=== PATIENT | female | born 1960 | race Caucasian/White ===

== ENCOUNTER → 2020-07-21 14:22 | Outpatient (CLI) | payer OTHER, SELFPAY ==
[2020-07-23 10:12] LABS: Covid-19 Nasal PCR Sendout P&C Negative
== END ==
PROVIDERS: PCP Family Medicine; Visit Provider Nurse Practitioner Family
DX: Z20.822 Contact with and (suspected) exposure to COVID-19 (principal)
CPT/HCPCS: U0004

== ENCOUNTER 2023-01-06 02:27 | Emergency (ER) | payer OTHER, SELFPAY ==
[2023-01-06] VITALS (7 sets, daily range): BP systolic 150–206; BP diastolic 80–169; PULSE 88–120; RESP 16–22; TEMP 36.8–36.9; O2SAT 96–98; BMI 32.0; BMI 33.0
--- NOTE | 2023-01-06 02:55 | CT_ITS ---
PROCEDURE INFORMATION: Exam: CT Abdomen And Pelvis With Contrast Exam date and time: 01/06/2023 3:34 AM Age: 62 years old Clinical indication: Pain; Other: Vaginal; Additional info: Vaginal pain TECHNIQUE: Imaging protocol: Computed tomography of the abdomen and pelvis with contrast. Radiation optimization: All CT scans at this facility use at least one of these dose optimization techniques: automated exposure control; mA and/or kV adjustment per patient size (includes targeted exams where dose is matched to clinical indication); or iterative reconstruction. Contrast material: ISOVUE; Contrast volume: 75 ml; Contrast route: IV; REPORTING DATA: Count of CT and Cardiac NM exams in prior 12 months: This patient has received 0 known CTs and 0 known cardiac nuclear medicine studies in the 12 months prior to the current study. COMPARISON: No relevant prior studies available. FINDINGS: Lungs: Calcified granuloma within the left lower lobe. Liver: Normal. Gallbladder and bile ducts: Normal. Pancreas: Normal. Spleen: Normal. Adrenal glands: Normal. No mass. Kidneys and ureters: Nonobstructive bilateral nephrolithiasis. Stomach and bowel: Normal. Appendix: Appendix normal. Intraperitoneal space: Unremarkable. No free air. No significant fluid collection. Vasculature: Phleboliths within the pelvis. Lymph nodes: Unremarkable. No enlarged lymph nodes. Urinary bladder: Unremarkable as visualized. Reproductive: Uterus surgically absent. Bones/joints: No acute abnormality. Soft tissues: Dystrophic calcifications within the gluteal subcutaneous tissues bilaterally, possibly injection granulomas. IMPRESSION: No acute abdominal or pelvic abnormality.
--- NOTE | 2023-01-06 03:00 | HMH.EDUROGF ---
Discharge Plan Disposition Patient Disposition: Home, Self-Care Prescriptions Prescriptions: New cephalexin [cephalexin] 500 mg capsule 500 mg PO TID Qty: 21 0RF Referrals Follow up/Referrals: Jarvis Ingram MD [Primary Care Provider] - See instructions Dallin Fox MD [Staff Physician] - See instructions Clinical Impressions Clinical Impression: Urinary tract infection, Vaginal pain Instructions Patient Instructions: DI for Urinary Tract Infection (UTI), DI for Pelvic Pain Discharge ED Provider: Yvette (ED),Cedric Hunter Female Urogenital HPI General Chief complaint: Urogenital-Female Stated complaint: Vaginal Pain Time Seen by Provider: 01/06/23 03:00 Mode of Arrival: Wheelchair Source of Information: Patient and Medical Record Limitations: No Limitations Description of Symptoms (Recalled from ER Triage Doc. by RN): pt c\o severe pain in her vagina. then pt states pain 30/10 pressure like something is coming out of her. the pt reports a full hysterectomy and has had this pain for bout 2 months. no protrusions noted during nurse assessment History of Present Illness HPI Narrative: vagina pain worse over the last few days - has had hysterectomy- no bleeding - no skin lesions - no recent coitus Complaint: other (vaginal pain) Onset (ago): day(s) Location: suprapubic Severity: moderate : No Associated symptoms: denies other symptoms Related Data Previous Rx's Medication Instructions Recorded cephalexin 500 mg capsule 500 mg PO TID #21 caps 01/06/23 Allergies Allergy/AdvReac Type Severity Reaction Status Date / Time Aspirin Allergy Severe S-DIFF. Uncoded 06/20/17 14:02 BREATHING CELERY Allergy Severe STOMACH Uncoded 06/20/17 14:02 SWELLS NUTS (FOOD) Allergy Severe S-DIFF. Uncoded 06/20/17 14:02 BREATHING SULFA (sulfonamide) Allergy Severe S-SWELLS-OR Uncoded 06/20/17 14:02 AL/THROAT PFSH PFS Disclaimer: The information contained in this section may have been updated after the patient was seen, as this information can be updated by other users. Social History Smoking Status: Former smoker alcohol intake: never current occupational status: retired Travel in the last 8 weeks: None ROS Obtained: Yes All systems reviewed & no additional complaints except as documented Physical Exam General General appearance: alert Head Head exam: normocephalic Eye Eye exam: Present PERRL and EOMI ENT ENT exam: Present mucous membranes moist Neck Neck exam: Present trachea midline Respiratory Respiratory exam: Present normal lung sounds bilaterally; Absent respiratory distress Cardiovascular Cardiovascular exam: Present regular rate Abdominal Exam Abdominal exam: Present soft; Absent tenderness, guarding or rebound External exam: Present normal external exam Extremities Exam Extremities exam: Present full ROM Neurological Exam Neurological exam: Present alert, oriented X3 and CN II-XII intact; Absent motor sensory deficit Psychiatric Psychiatric exam: Present normal affect Skin Skin exam: Absent rash Medical Decision Making Medical Records Medical records reviewed: Yes I reviewed the patient's medical records. [place] Inquiry Pt receiving controlled substance: No Vital Signs: 01/06/23 02:29 01/06/23 02:56 01/06/23 03:00 Temperature 98.4 F Temperature Source Oral Pulse Rate 101 H 100 H Pulse Rate [Left] 120 H Respiratory Rate 22 18 20 Blood Pressure 181/93 H 150/98 H Blood Pressure [Left Arm] 180/98 H Blood Pressure [Right Arm] 206/169 H Blood Pressure Mean 123 131 Blood Pressure Mean [Left Arm] 125 Blood Pressure Mean [Right Arm] 181 Blood Pressure Source Blood Pressure Source [Left Arm] Manual Cuff/ Auscultation Blood Pressure Source [Right Arm] Automatic Cuff Blood Pressure Position 02 Sat by Pulse Oximetry 97 97 98 Oxygen Delivery Method Room Air 01/06/23 05:08 Temperature Temperature Source Puls
[2023-01-06 03:05] LABS: Basophils # 0.1 K/mm3 (0-0.2); Basophils % 0.8 % (0.1-2.0); Chloride 101 mmol/L (98-107); Eosinophils # 0.1 K/mm3 (0.0-0.4); Eosinophils % 0.9 % (0.1-12.0); Hematocrit 45.9 % (37.0-47.0); Hemoglobin 14.9 g/dL (12.2-16.2); Lymphocytes # 3.3 K/mm3 (0.7-4.5); Lymphocytes % 39.8 % (10-50); Mean Corpuscular HGB Conc 32.4 g/dL (31.8-35.4); Mean Corpuscular Hemoglobin 27.4 pg (27.0-31.2); Mean Corpuscular Volume 84.5 fl (81-99); Mean Platelet Volume 7.2 fl (7.4-10.4); Monocytes # 0.7 K/mm3 (0.1-1.0); Monocytes % 7.9 % (1.7-9.3); Neutrophils # 4.2 K/mm3 (1.8-7.8); Neutrophils % 50.6 % (37.0-80.0); Platelet Count 278 K/mm3 (142-424); Red Blood Count 5.43 M/mm3 (4.20-5.40); Red Cell Distribution Width 13.3 % (11.5-17.5); White Blood Count 8.4 K/mm3 (4.8-10.8)
[2023-01-06 03:06] LABS: Potassium 3.8 mmoL/L (3.5-5.1); Sodium 134 mmol/L (136-145)
[2023-01-06 03:08] LABS: Alanine Aminotransferase 32 U/L (12-78); Albumin Level 4.6 g/dl (3.5-5.0); Albumin/Globulin Ratio 1.2 (1.1-1.8); Alkaline Phosphatase 116 U/L (38-126); Anion Gap 12.8 mEq/L (5-15); Aspartate Amino Transferase 31 U/L (14-36); Bilirubin,Total 0.4 mg/dl (0.2-1.3); Blood Urea Nitrogen 17 mg/dl (7-17); Carbon Dioxide 24 mmol/L (22.0-30.0); Creatinine Clearance Estimated 71 mL/min (50-200); Estimated Glomerular Filt Rate 102 ml/min (>60); GFR (African American) 123 ML/MIN (>60); Globulin 3.7 g/dL (1.3-3.2); Glucose 152 mg/dl (74-100); Lipase 120 U/L (23-300); Total Protein,Serum 8.3 g/dl (6.3-8.2)
[2023-01-06 03:14] LABS: C-Reactive Protein 2.1 mg/L (0-4)
[2023-01-06 03:19] LABS: Microscopic, Urine URINE MICROSCOPIC (MICROSCOPIC)
[2023-01-06 03:29] LABS: Appearance,Urine CLEAR (Clear); Bilirubin,Urine Negative (Negative); Blood, Urine 1+ (Negative); Color,Urine YELLOW (Yellow); Glucose,Urine (UA) Negative (Negative); Ketones,Urine Negative (Negative); Leukocyte Esterase,Urine 2+ (Negative); Nitrate,Urine POSITIVE (Negative); Protein,Urine TRACE (Negative); Urobilinogen,Urine 0.2 EU/dl (0.2)
[2023-01-06 03:44] LABS: Bacteria,Urine 3+ /lpf
[2023-01-06 03:47] LABS: Erythrocyte Sedimentation Rate 17 mm/hr (0-30)
== END 2023-01-06 05:52 | disposition home or self-care (01) ==
PROVIDERS: Emergency Provider Emergency Medicine; PCP Family Medicine
DX: N39.0 Urinary tract infection, site not specified (principal); Z87.891 Personal history of nicotine dependence; R10.2 Pelvic and perineal pain
CPT/HCPCS: 74177; 80053; 81001; 83690; 84145; 85025; 85651; 86140; 87086; 87088; 87186; 96361; 96374; 96375; 99284; 99285; J0696; J2405; Q9967

== ENCOUNTER 2023-02-02 07:46 | Emergency (ER) | payer OTHER, SELFPAY ==
[2023-02-02 08:00] VITALS: BP 171/140; PULSE 114; RESP 18; TEMP 36.8; O2SAT 97; BMI 32.0
[2023-02-02 08:10] LABS: Appearance,Urine TURBID (Clear); Blood, Urine 3+ (Negative); Color,Urine YELLOW (Yellow); Glucose,Urine (UA) Negative (Negative); Ketones,Urine Negative (Negative); Leukocyte Esterase,Urine 3+ (Negative); Microscopic, Urine URINE MICROSCOPIC (MICROSCOPIC); Nitrate,Urine POSITIVE (Negative); Protein,Urine 2+ (Negative); Specific Gravity, Urine >= 1.030 (1.005-1.030)
--- NOTE | 2023-02-02 08:11 | CT_ITS ---
FINAL REPORT TECHNIQUE: Postcontrast axial images through the abdomen and pelvis were performed. This study was performed with techniques to keep radiation doses as low as reasonably achievable, (ALARA). Individualized dose reduction techniques using automated exposure control or adjustment of mA and/or kV according to the patient's size were employed. CLINICAL HISTORY: RL Qpain then NB/NB vomiting COMPARISON: 01/06/2023 FINDINGS: Abdomen: The lung bases are clear. The liver is normal in size and attenuation. The spleen is unremarkable. The adrenals are normal. The pancreas is unremarkable. There are several less than 3 mm bilateral renal stones. The aorta is normal in caliber. No free fluid or adenopathy is identified. There is mild right hydronephrosis and hydroureter secondary to a 2 mm right UVJ stone. Pelvis: The appendix is normal. Patient is status post hysterectomy. There is bladder wall thickening with adjacent stranding consistent with inflammation. There are bilateral gluteal calcifications which are stable, likely fat necrosis. No free fluid, free air, abscess or adenopathy is identified. IMPRESSION: No acute right hydronephrosis and hydroureter secondary to an obstructing UVJ stone. Bilateral nephrolithiasis. Reviewed, Interpreted and Dictated by Rad Aguillon III, MD Transcribed by Maame Huang Authenticated and [facility]
[2023-02-02 08:15] LABS: Bilirubin,Urine 1+ (Negative)
[2023-02-02 08:21] LABS: WBC,Urine TNTC #/hpf (0-3)
[2023-02-02 08:22] LABS: Bacteria,Urine 1+ /lpf; RBC,Urine 50-100 #/hpf (0-3)
--- NOTE | 2023-02-02 08:24 | HMH.EDGENADL ---
Discharge Plan Disposition Patient Disposition: Home, Self-Care Prescriptions Prescriptions: New cefdinir 300 mg capsule 300 mg PO BID 14 Days Qty: 28 0RF ondansetron HCl 4 mg tablet 4 mg PO Q6H PRN (Reason: nausea and vomiting) Qty: 10 0RF Saccharomyces boulardii [Florastor] 250 mg capsule 250 mg PO DAILY Qty: 30 0RF No Action clopidogrel 75 mg tablet 75 mg PO DAILY isosorbide mononitrate 30 mg tablet extended release 24 hr 30 mg PO DAILY losartan-hydrochlorothiazide 100-12.5 mg tablet 1 tab PO DAILY Patient Comments: TAKE 1 TABLET BY MOUTH ONCE DAILY levothyroxine 75 mcg tablet 75 mcg PO DAILY atorvastatin 40 mg tablet 40 mg PO DAILY oxcarbazepine 300 mg tablet 300 mg PO BID Patient Comments: TAKE 1 TABLET BY MOUTH TWICE DAILY Atrovent HFA 17 mcg/actuation HFA aerosol inhaler 2 inh inhalation Q4H PRN fluticasone furoate-vilanterol [Breo Ellipta] 200-25 mcg/dose blister with device 1 inh inhalation DAILY Januvia 50 mg tablet 50 mg PO DAILY ascorbic acid (vitamin C) [Vitamin C With Freya Hips] 500 mg tablet 500 mg PO TID methenamine hippurate 1 gram tablet 1 g PO ONCE prasterone (dhea) 6.5 mg insert 1 insert vaginal HS Referrals Follow up/Referrals: Jarvis Ingram MD [Primary Care Provider] - See instructions Activity Restrictions/Add. Instructions Additional Instructions/Restrictions: Follow-up with your primary care doctor regarding this visit to the emergency department. Be sure to call urology to see if you can get a prompt follow-up scheduled as well. Take cefdinir twice daily for 14 days. If you have any other concerning signs or symptoms, or worsening of your current condition, return to the ER promptly for further evaluation. Clinical Impressions Clinical Impression: Nephrolithiasis Urinary tract infection Qualifiers: Urinary tract infection type: site unspecified Hematuria presence: with hematuria Qualified Code(s): N39.0 - Urinary tract infection, site not specified Instructions Patient Instructions: DI for Acute Abdominal Pain Discharge ED Provider: Sekou William General Adult HPI General Chief complaint: Abdominal Pain Stated complaint: abdominal pain, vomiting, Time Seen by Provider: 02/02/23 07:49 Mode of Arrival: Ambulatory Source of Information: Patient Limitations: No Limitations Description of Symptoms (Recalled from ER Triage Doc. by RN): Presents via POV d/t right flank/RLQ abd pain radiating to right back that started approx. 03:00 am with associated n/v (due to pain). +discolored urine (brown) x 2. Denies Hx of GI or renal stones. +recurrent UTI's, followed by Urologist. History of Present Illness HPI narrative: This is a 62-year-old female with history of previous hysterectomy (abdominal), hypertension, hyperlipidemia, COPD, chronic UTIs (currently following with urology as outpatient facility) presenting with right lower quadrant pain. Patient states that pain woke her up from sleep at 3 AM on 02/02. Never had anything like this in the past. Pain is 10 out of 10 when it flares up, radiates to her right flank. 8 out of 10 currently. Stabbing, throbbing. Tylenol and Motrin do not help. No overlying skin changes. Patient states for the past couple of weeks, she has also had small-volume, loose, brown stools, which is different from normal. Still passing gas. Last bowel movement was 1 day prior to arrival. Denies dysuria, hematuria, fevers or chills, but has been intermittently vomiting for the past couple of hours. Nonbloody, nonbilious vomit. Related Data Home Medications Medication Instructions Recorded Confirmed atorvastatin 40 mg tablet 40 mg PO DAILY 01/09/23 02/01/23 clopidogrel 75 mg tablet 75 mg PO DAILY 01/09/23 02/01/23 fluticasone furoate 200 1 inh inhalation DAILY 01/09/23 02/01/23 mcg-vilanterol 25 mcg/dose inhalation powder (Breo Ellipta) ipratropium
--- NOTE | 2023-02-02 08:29 | PC.NURSE ---
Called lab regarding blood cultures/lactic draw.
[2023-02-02 08:30] VITALS: BP 179/107; PULSE 100; O2SAT 95
[2023-02-02 08:30] LABS: Chloride 100 mmol/L (98-107); Potassium 3.7 mmoL/L (3.5-5.1); Sodium 134 mmol/L (136-145)
--- NOTE | 2023-02-02 08:30 | PC.NURSE ---
Patient updated on plan of care.
[2023-02-02 08:31] LABS: Basophils # 0.1 K/mm3 (0-0.2); Basophils % 0.6 % (0.1-2.0); Eosinophils # 0.1 K/mm3 (0.0-0.4); Eosinophils % 0.5 % (0.1-12.0); Hematocrit 44.6 % (37.0-47.0); Hemoglobin 14.4 g/dL (12.2-16.2); Lymphocytes # 2.1 K/mm3 (0.7-4.5); Lymphocytes % 15.7 % (10-50); Mean Corpuscular HGB Conc 32.2 g/dL (31.8-35.4); Mean Corpuscular Hemoglobin 27.7 pg (27.0-31.2); Mean Corpuscular Volume 85.9 fl (81-99); Mean Platelet Volume 7.4 fl (7.4-10.4); Monocytes # 0.8 K/mm3 (0.1-1.0); Neutrophils # 10.5 K/mm3 (1.8-7.8); Neutrophils % 77.2 % (37.0-80.0); Platelet Count 297 K/mm3 (142-424); Red Blood Count 5.19 M/mm3 (4.20-5.40); Red Cell Distribution Width 13.3 % (11.5-17.5); White Blood Count 13.6 K/mm3 (4.8-10.8)
[2023-02-02 08:32] LABS: Blood Urea Nitrogen 22 mg/dl (7-17); Creatinine Clearance Estimated 69 mL/min (50-200); Estimated Glomerular Filt Rate 85 ml/min (>60); GFR (African American) 103 ML/MIN (>60)
[2023-02-02 08:33] LABS: Alanine Aminotransferase 28 U/L (12-78); Albumin Level 4.4 g/dl (3.5-5.0); Albumin/Globulin Ratio 1.2 (1.1-1.8); Alkaline Phosphatase 112 U/L (38-126); Anion Gap 14.7 mEq/L (5-15); Aspartate Amino Transferase 30 U/L (14-36); Bilirubin,Total 0.3 mg/dl (0.2-1.3); Carbon Dioxide 23 mmol/L (22.0-30.0); Globulin 3.8 g/dL (1.3-3.2); Total Protein,Serum 8.2 g/dl (6.3-8.2)
[2023-02-02 08:34] LABS: Calcium 9.6 mg/dl (8.4-10.2); Glucose 148 mg/dl (74-100)
[2023-02-02 08:38] LABS: Activated Partial Thrombo Time 26.7 seconds (22.8-30.6)
[2023-02-02 08:42] LABS: C-Reactive Protein 9.8 mg/L (0-4)
--- NOTE | 2023-02-02 08:43 | PC.NURSE ---
notified of worsening pain despite meds.
--- NOTE | 2023-02-02 08:57 | PC.NURSE ---
From CT, lab notified.
--- NOTE | 2023-02-02 09:01 | PC.NURSE ---
Lab at bedside. Improved pain post dilaudid.
[2023-02-02 09:18] LABS: Erythrocyte Sedimentation Rate 23 mm/hr (0-30)
--- NOTE | 2023-02-02 09:27 | PC.NURSE ---
MD at bedside discussing results and disposition.
[2023-02-02 09:30] LABS: Lactic Acid 1.1 mmol/L (0.7-2.1)
[2023-02-02 09:36] VITALS: BP 167/93; PULSE 98; O2SAT 95
[2023-02-02 09:38] VITALS: BP 167/93; PULSE 100; RESP 18; O2SAT 96
--- NOTE | 2023-02-02 09:39 | PC.NURSE ---
Oral fluids provided; okay by . Pt updated on plan of care; awaiting final results of CT.
--- NOTE | 2023-02-02 09:59 | PC.NURSE ---
contacted rad to check on status of CT result, states preliminary result available and will send down. updated Dr. William
[2023-02-02 10:00] VITALS: BP 172/87; PULSE 87; O2SAT 95
--- NOTE | 2023-02-02 10:23 | PC.NURSE ---
rounded on pt, primary nurse in room rounding on pt as well.
--- NOTE | 2023-02-02 10:23 | PC.NURSE ---
Pt updated on plan of care. Awaiting final rad read. 10/10 pain. Pt tolerating PO fluids.
[2023-02-02 10:45] VITALS: BP 174/112; PULSE 91; RESP 18; TEMP 36.7; O2SAT 98
== END 2023-02-02 10:47 | disposition home or self-care (01) ==
PROVIDERS: Emergency Provider Emergency Medicine; PCP Family Medicine
DX: N39.0 Urinary tract infection, site not specified (principal); N20.0 Calculus of kidney; R10.31 Right lower quadrant pain; Z86.73 Personal history of transient ischemic attack (TIA), and cerebral infarction without residual deficits; I10 Essential (primary) hypertension; E78.5 Hyperlipidemia, unspecified; J44.9 Chronic obstructive pulmonary disease, unspecified
CPT/HCPCS: 36415; 74177; 80053; 81001; 83605; 85025; 85651; 85730; 86140; 87040; 87086; 87088; 87186; 96361; 96374; 96375; 99285; J0131; J0696; J2405; Q9967

== ENCOUNTER 2023-10-31 05:34 | Emergency (ER) | payer OTHER, SELFPAY ==
[2023-10-31] VITALS (8 sets, daily range): BP systolic 139–215; BP diastolic 72–115; PULSE 84–123; RESP 18–22; TEMP 36.6–36.7; O2SAT 89–99; BMI 31.2
--- NOTE | 2023-10-31 05:41 | CT_ITS ---
PROCEDURE INFORMATION: Exam: CT Abdomen And Pelvis Without Contrast Exam date and time: 10/31/2023 6:00 AM Age: 63 years old Clinical indication: Abdominal pain; Additional info: Right abd pain, HX stones TECHNIQUE: Imaging protocol: Computed tomography of the abdomen and pelvis without contrast. Radiation optimization: All CT scans at this facility use at least one of these dose optimization techniques: automated exposure control; mA and/or kV adjustment per patient size (includes targeted exams where dose is matched to clinical indication); or iterative reconstruction. COMPARISON: CT ABDOMEN PELVIS W CON 02/02/2023 8:53 AM FINDINGS: Heart: Trace pericardial fluid. Liver: No acute findings. No mass. Gallbladder and bile ducts: No acute findings, calcified stones or ductal dilation. Pancreas: No acute findings, focal abnormality or ductal dilation. Spleen: No splenomegaly or focal abnormality. Adrenal glands: Normal. No mass. Kidneys and ureters: Small nonobstructing intrarenal calculus. No obstructive uropathy. Stomach and bowel: No obstruction. No mucosal thickening. Appendix: No evidence of appendicitis. Intraperitoneal space: No free air. No significant fluid collection. Vasculature: No abdominal aortic aneurysm. Lymph nodes: No pathologically enlarged lymph nodes. Urinary bladder: Unremarkable as visualized. Reproductive: Patient is status post hysterectomy. Bones/joints: No acute fracture. Soft tissues: No acute findings. Injection granulomata bilaterally in the lower flanks IMPRESSION: 1. No acute findings in the abdomen or pelvis. 2. Trace pericardial fluid.
[2023-10-31] MEDS: ACETAMINOPHEN 1,000MG/100ML VIAL 1000 MG IV (05:46)
[2023-10-31] MEDS: 0.9 % SODIUM CHLORIDE 1000ML 1,000 ML 999 ML IV (05:46)
[2023-10-31] MEDS: MORPHINE 4MG/ML SYRINGE 4 MG IV (05:47)
[2023-10-31] MEDS: ONDANSETRON 4MG/2ML VIAL 4 MG IV (05:47)
[2023-10-31] MEDS: KETOROLAC 30MG/ML VIAL 30 MG IV (05:47)
[2023-10-31 05:58] LABS: Basophils # 0.1 K/mm3 (0-0.2); Basophils % 0.7 % (0.1-2.0); Eosinophils # 0.1 K/mm3 (0.0-0.4); Eosinophils % 0.9 % (0.1-12.0); Hematocrit 45.2 % (37.0-47.0); Hemoglobin 15.5 g/dL (12.2-16.2); Lymphocytes # 2.3 K/mm3 (0.7-4.5); Lymphocytes % 27.3 % (10-50); Mean Corpuscular HGB Conc 34.2 g/dL (31.8-35.4); Mean Corpuscular Hemoglobin 29.7 pg (27.0-31.2); Mean Corpuscular Volume 86.8 fl (81-99); Mean Platelet Volume 7.3 fl (7.4-10.4); Monocytes # 0.3 K/mm3 (0.1-1.0); Monocytes % 3.6 % (1.7-9.3); Neutrophils # 5.8 K/mm3 (1.8-7.8); Neutrophils % 67.5 % (37.0-80.0); Platelet Count 279 K/mm3 (142-424); Red Blood Count 5.21 M/mm3 (4.20-5.40); Red Cell Distribution Width 13.6 % (11.5-17.5); White Blood Count 8.5 K/mm3 (4.8-10.8)
[2023-10-31 06:05] LABS: Chloride 98 mmol/L (98-107); Potassium 4.2 mmoL/L (3.5-5.1); Sodium 126 mmol/L (136-145)
[2023-10-31 06:09] LABS: Alanine Aminotransferase 42 U/L (12-78); Albumin Level 4.4 g/dl (3.5-5.0); Albumin/Globulin Ratio 1.4 (1.1-1.8); Alkaline Phosphatase 77 U/L (38-126); Anion Gap 14.2 mEq/L (5-15); Aspartate Amino Transferase 39 U/L (14-36); Bilirubin,Total 0.5 mg/dl (0.2-1.3); Blood Urea Nitrogen 11 mg/dl (7-17); Calcium 9.7 mg/dl (8.4-10.2); Carbon Dioxide 18 mmol/L (22.0-30.0); Creatinine Clearance Estimated 67 mL/min (50-200); Estimated Glomerular Filt Rate 101 ml/min (>60); GFR (African American) 123 ML/MIN (>60); Globulin 3.2 g/dL (1.3-3.2); Glucose 135 mg/dl (74-100); Total Protein,Serum 7.6 g/dl (6.3-8.2)
[2023-10-31] MEDS: PROMETHAZINE HCL 25MG/ML 1ML VIAL 25 MG IV (06:11)
[2023-10-31] MEDS: SODIUM CHLORIDE 0.9% 25ML BAG 25 ML IV (06:11)
--- NOTE | 2023-10-31 06:22 | CT_ITS ---
PROCEDURE INFORMATION: Exam: CTA Abdomen and Pelvis With Contrast Exam date and time: 10/31/2023 6:38 AM Age: 63 years old Clinical indication: Abdominal pain; Generalized; Additional info: Severe abd pain TECHNIQUE: Imaging protocol: Computed tomographic angiography of the abdomen and pelvis with contrast. Exam focused on the arteries. 3D rendering (Not supervised by radiologist): MIP and/or 3D reconstructed images were created by the technologist. Radiation optimization: All CT scans at this facility use at least one of these dose optimization techniques: automated exposure control; mA and/or kV adjustment per patient size (includes targeted exams where dose is matched to clinical indication); or iterative reconstruction. Contrast material: ISOVUE 370; Contrast volume: 100 ml; Contrast route: INTRAVENOUS (IV); COMPARISON: CT ABDOMEN PELVIS WO CON 10/31/2023 6:00 AM FINDINGS: Aorta: No aortic aneurysm. No aortic dissection. Celiac trunk and mesenteric arteries: No occlusion or significant stenosis. Renal arteries: No occlusion or significant stenosis. Right iliac arteries: No occlusion or significant stenosis. Left iliac arteries: Atherosclerotic narrowing of the left common iliac artery which is nevertheless patent. Narrowed but patent origin of the left internal iliac artery. Liver: No mass. Gallbladder and bile ducts: No calcified stones. No ductal dilation. Pancreas: No mass. No ductal dilation. Spleen: No splenomegaly. Adrenal glands: No mass. Kidneys and ureters: No solid mass. No hydronephrosis. Stomach and bowel: No obstruction. No mucosal thickening. Appendix: No evidence of appendicitis. Intraperitoneal space: No free air. No significant fluid collection. Lymph nodes: No enlarged lymph nodes. Urinary bladder: No mass. Reproductive: Patient is status post hysterectomy. Bones/joints: No acute fracture. Soft tissues: No acute findings. IMPRESSION: 1. No acute findings. 2. Narrowed but patent left common and internal iliac arteries.
--- NOTE | 2023-10-31 06:23 | CT_ITS ---
PROCEDURE INFORMATION: Exam: CTA Chest With Contrast CTA Abdomen and Pelvis With Contrast Exam date and time: 10/31/2023 6:38 AM Age: 63 years old Clinical indication: Angina pectoris; Patient HX: Severe pain, hypertension; Additional info: Severe pain, HTN TECHNIQUE: Imaging protocol: Computed tomographic angiography of the chest with contrast. Exam focused on the arteries. Computed tomographic angiography of the abdomen and pelvis with contrast. Exam focused on the arteries. 3D rendering (Not supervised by radiologist): MIP and/or 3D reconstructed images were created by the technologist. Radiation optimization: All CT scans at this facility use at least one of these dose optimization techniques: automated exposure control; mA and/or kV adjustment per patient size (includes targeted exams where dose is matched to clinical indication); or iterative reconstruction. Contrast material: ISOVUE 370; Contrast volume: 100 ml; Contrast route: INTRAVENOUS (IV); COMPARISON: CT ANGIO ABDOMEN PELVIS 10/31/2023 6:38 AM FINDINGS: VASCULATURE: Pulmonary arteries: Normal. No pulmonary emboli. Aorta: There is scattered calcific atheromatous plaque noted mainly in the inferior segment of the abdominal aorta. Celiac trunk and mesenteric arteries: No occlusion or significant stenosis. Renal arteries: No occlusion or significant stenosis. Right iliac arteries: No occlusion or significant stenosis. Left iliac arteries: No occlusion or significant stenosis. Veins: Incidental note is made of a retroaortic left renal vein. CHEST: Lungs: There is a 6 mm calcified granuloma noted in the left lower lobe just above the diaphragm. Scattered subsegmental atelectasis is noted in the lungs with minimal gravity dependent change in the lower lobes. Pleural spaces: Unremarkable. No pneumothorax. No pleural effusion. Heart: Unremarkable. No cardiomegaly. No pericardial effusion. Coronary arteries: There is coronary artery calcification. ABDOMEN AND PELVIS: Liver: Subcapsular granuloma is noted in the medial right hepatic dome along the inferior vena cava. Gallbladder and bile ducts: The gallbladder is moderately distended. Pancreas: Unremarkable. No mass. No ductal dilation. Spleen: Unremarkable. No splenomegaly. Adrenal glands: Unremarkable. No mass. Kidneys and ureters: The kidneys enhance symmetrically and there is no hydronephrosis. Stomach and bowel: There is no evidence of small bowel obstruction. Scattered colonic diverticula are noted. Appendix: The patient appears to be post appendectomy. Intraperitoneal space: Unremarkable. No free air. No significant fluid collection. Urinary bladder: Unremarkable. No mass. Reproductive: Gynecologic structures are not identified, likely surgically absent. Lymph nodes: Calcified mediastinal lymphadenopathy is noted. Bones/joints: Unremarkable. No acute fracture. Soft tissues: Unremarkable. IMPRESSION: No evidence for aortic dissection or aneurysm. No evidence for pulmonary embolism. 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 Colonic diverticulosis.
[2023-10-31] MEDS: HYDROMORPHONE 2MG/ML SYRINGE 0.5 MG IV (06:26)
--- NOTE | 2023-10-31 06:26 | HMH.EDGENADL ---
Discharge Plan Disposition Patient Disposition: Home, Self-Care Condition: Good Prescriptions Prescriptions: New ciprofloxacin HCl 500 mg tablet 500 mg PO BID Qty: 20 0RF ondansetron HCl 4 mg tablet 4 mg PO Q8H PRN (Reason: nausea and vomiting) 4 Days Qty: 12 0RF phenazopyridine [Pyridium] 200 mg tablet 200 mg PO Q8H PRN (Reason: pain) Qty: 10 0RF No Action clopidogrel 75 mg tablet 75 mg PO DAILY losartan-hydrochlorothiazide 100-12.5 mg tablet 1 tab PO DAILY Patient Comments: TAKE 1 TABLET BY MOUTH ONCE DAILY levothyroxine 75 mcg tablet 75 mcg PO DAILY atorvastatin 40 mg tablet 40 mg PO DAILY oxcarbazepine 300 mg tablet 300 mg PO BID Patient Comments: TAKE 1 TABLET BY MOUTH TWICE DAILY Atrovent HFA 17 mcg/actuation HFA aerosol inhaler 2 inh inhalation Q4H PRN fluticasone furoate-vilanterol [Breo Ellipta] 200-25 mcg/dose blister with device 1 inh inhalation DAILY Januvia 50 mg tablet 50 mg PO DAILY ascorbic acid (vitamin C) [Vitamin C With Freya Hips] 500 mg tablet 500 mg PO TID methenamine hippurate 1 gram tablet 1 g PO ONCE prasterone (dhea) 6.5 mg insert 1 insert vaginal HS isosorbide mononitrate 30 mg tablet extended release 24 hr 30 mg PO DAILY 90 Days Qty: 90 1RF cefdinir 300 mg capsule 300 mg PO BID 14 Days Qty: 28 0RF ondansetron HCl 4 mg tablet 4 mg PO Q6H PRN (Reason: nausea and vomiting) Qty: 10 0RF Saccharomyces boulardii [Florastor] 250 mg capsule 250 mg PO DAILY Qty: 30 0RF Referrals Follow up/Referrals: Provider,Referral, MD [Primary Care Provider] - See instructions Activity Restrictions/Add. Instructions Additional Instructions/Restrictions: You were evaluated in the emergency department today. Please fruit or nut picker your prescription at the pharmacy and take as prescribed. Follow-up closely with your primary care provider. Your urine culture is pending at this time. Return to the emergency department for new or worsening symptoms. Take Tylenol at home as needed for pain. Clinical Impressions Clinical Impression: Recurrent urinary tract infection Instructions Patient Instructions: DI for Urinary Tract Infection (UTI), DI for Acute Abdominal Pain Discharge ED Provider: Inez Lee General Adult HPI <Esequiel Calloway MD - Last Filed: 10/31/23 06:55> General Chief complaint: Abdominal Pain Stated complaint: abd pain Time Seen by Provider: 10/31/23 05:35 Mode of Arrival: Wheelchair Source of Information: Patient Limitations: Physical Limitations Description of Symptoms (Recalled from ER Triage Doc. by RN): ED was called by repair order clerk stating pt was laying on ED lobby floor. This RN and Elsa Villeda assisted pt off of floor into a wheelchair and wheeled pt to a room. Pt C/O severe RLQ abd pain starting around 2200 last night, and worsening t/o the night. Pt also reports N/V. Pt states she has hx of kidney stones and infections. History of Present Illness HPI narrative: 63-year-old female with history including chronic urinary tract infections, chronic kidney stones diabetes hypothyroidism, presents with severe abdominal pain. She reports abdominal pain started last night, has been worsening. She reports associated nausea and vomiting. She reports it feels like it could be a kidney stone. Pain is suprapubic, right lower quadrant and radiating into the bilateral CVA. She denies any fever at home. She reports she never had to have an intervention for her stones, they have all passed spontaneously. She reports she sees a urologist in [place]. Denies any lower extremity pain or weakness or numbness. Related Data Home Medications Medication Instructions Recorded Confirmed atorvastatin 40 mg tablet 40 mg PO DAILY 01/09/23 02/01/23 clopidogrel 75 mg tablet 75 mg PO DAILY 01/09/23 02/01/23 fluticasone furoate 200 1 inh inhalation DAILY 01/09/23 02/01/23 mcg-vilanterol 25 mcg/dose inhalation powder (Breo Ellipta) ipratropium bromide 17 2 inh inhalation Q4H PRN 01/09/23 02/01/23 mcg/actuation HFA aerosol inhaler (Atrovent HFA) levothyroxine 75 mcg tablet 75 mcg PO DAILY 01/09/23 02/01/23 losartan 100 1 tab PO DAILY 01/09/23 02/01/23 mg-hydrochlorothiazide 12.5 mg tablet oxcarbazepine 300 mg tablet 300 mg PO BID 01/09/23 02/01/23 sitagliptin phosphate 50 mg tablet 50 mg PO DAILY 01/09/23 02/01/23 (Januvia) ascorbic acid (vitamin C) 500 mg 500 mg PO TID 02/01/23 02/01/23 tablet (Vitamin C With Freya Hips) methenamine hippurate 1 gram tablet 1 g PO ONCE 02/01/23 02/01/23 prasterone (dhea) 6.5 mg vaginal 1 insert vaginal HS 02/01/23 02/01/23 insert Previous Rx's Medication Instructions Recorded Saccharomyces boulardii 250 mg 250 mg PO DAILY #30 caps 02/02/23 capsule (Florastor) cefdinir 300 mg capsule 300 mg PO BID 14 days #28 caps 02/02/23 ondansetron HCl 4 mg tablet 4 mg PO Q6H PRN nausea and 02/02/23 vomiting #10 tabs isosorbide mononitrate 30 mg 30 mg PO DAILY 90 days #90 tabs 04/10/23 tablet,extended release 24 hr ciprofloxacin HCl 500 mg tablet 500 mg PO BID #20 tabs 10/31/23 ondansetron HCl 4 mg tablet 4 mg PO Q8H PRN nausea and 10/31/23 vomiting 4 days #12 tabs phenazopyridine 200 mg tablet 200 mg PO Q8H PRN pain 6 doses #10 10/31/23 (Pyridium) tabs Allergies Allergy/AdvReac Type Severity Reaction Status Date / Time budesonide [From Symbicort] Allergy Other Verified 02/02/23 08:04 formoterol [From Symbicort] Allergy Other Verified 02/02/23 08:04 Aspirin Allergy Severe S-DIFF. Uncoded 02/01/23 14:27 BREATHING CELERY Allergy Severe STOMACH Uncoded 02/01/23 14:27 SWELLS NUTS (FOOD) Allergy Severe S-DIFF. Uncoded 02/01/23 14:27 BREATHING SULFA (sulfonamide) Allergy Severe S-SWELLS-OR Uncoded 02/01/23 14:27 AL/THROAT metformin Allergy Mild chest pains Uncoded 02/01/23 14:27 PFSH <Esequiel Calloway MD - Last Filed: 10/31/23 06:55> FOR[facility]LY [facility] Disclaimer: The information contained in this section may have been updated after the patient was seen, as this information can be updated by other users. Medical History Stroke Surgical History H/O: hysterectomy has right ovary Family History Other Alcoholism Asthma Diabetes Hyperlipidemia Hypertension Stroke Thyroid disorder Social History Smoking Status: Never smoker alcohol intake: never current occupational status: retired Travel in the last 8 weeks: None <Esequiel Calloway MD - Last Filed: 10/31/23 06:55> ROS Obtained: Yes All systems reviewed & no additional complaints except as documented Physical Exam <Esequiel Calloway MD - Last Filed: 10/31/23 06:55> General General appearance: alert and in distress Comment: Pale appearing, intermittently vomiting Head Head exam: atraumatic and normocephalic Eye Eye exam: Present normal appearance, PERRL and EOMI ENT ENT exam: Present normal oropharynx and normal external ear exam Neck Neck exam: Present normal inspection and full ROM Chest Chest inspection: Present normal inspection and symmetric chest wall rise; Absent tenderness Respiratory Respiratory exam: Present normal lung sounds bilaterally; Absent respiratory distress Cardiovascular Cardiovascular exam: Present normal rhythm and tachycardia Abdominal Exam Abdominal exam: Present soft and tenderness (suprapubic,RLQ); Absent distention or guarding Extremities Exam Extremities exam: Present normal inspection; Absent edema or joint swelling Back Exam Back exam: Present normal inspection; Absent tenderness Neurological Exam Neurological exam: Present alert and oriented X3; Absent motor sensory deficit Psychiatric Psychiatric exam: Present normal affect and normal mood Skin Skin exam: Present warm, dry and normal color Lymphatic Lymphatic Findings: no adenopathy Medical Decision Making <Esequiel Calloway MD - Last Filed: 10/31/23 06:55> Medical Records Medical records reviewed: Yes I reviewed the patient's medical records. Edison Inquiry Pt receiving controlled substance: No Edison was queried for this patient: No Vital Signs: 10/31/23 05:50 10/31/23 05:52 10/31/23 06:21 Temperature 98.1 F Temperature Source Oral Pulse Rate 106 H 102 H Pulse Rate [Right Radial] 123 H Respiratory Rate 22 Blood Pressure 215/115 H 155/104 H Blood Pressure [Right Arm] 215/115 H Blood Pressure Mean [Right Arm] 148 Blood Pressure Source Blood Pressure Source [Right Arm] Automatic Cuff Blood Pressure Position Blood Pressure Position [Right Arm] Sitting 02 Sat by Pulse Oximetry 99 89 L 96 Oxygen Delivery Method Room Air 10/31/23 06:30 10/31/23 07:01 10/31/23 07:31 Temperature Temperature Source Pulse Rate 97 H 100 H 88 Pulse Rate [Right Radial] Respiratory Rate Blood Pressure 156/87 H 180/89 H 139/72 Blood Pressure [Right Arm] Blood Pressure Mean [Right Arm] Blood Pressure Source Blood Pressure Source [Right Arm] Blood Pressure Position Blood Pressure Position [Right Arm] 02 Sat by Pulse Oximetry 96 97 97 Oxygen Delivery Method Room Air Room Air 10/31/23 08:01 10/31/23 08:35 Temperature 97.9 F Temperature Source Oral Pulse Rate 91 H 84 Pulse Rate [Right Radial] Respiratory Rate 18 Blood Pressure 159/84 H 147/85 H Blood Pressure [Right Arm] Blood Pressure Mean [Right Arm] Blood Pressure Source Automatic Cuff Blood Pressure Source [Right Arm] Blood Pressure Position Sitting Blood Pressure Position [Right Arm] 02 Sat by Pulse Oximetry 97 Oxygen Delivery Method Room Air Room Air Lab Data Lab results reviewed: Yes I reviewed the patient's lab results. Lab Results 10/31/23 05:50: WBC 8.5, RBC 5.21, Hgb 15.5, Hct 45.2, MCV 86.8, MCH 29.7, MCHC 34.2, RDW 13.6, Plt Count 279, MPV 7.3 L, Neut % (Auto) 67.5, Lymph % (Auto) 27.3, Isabella % (Auto) 3.6, Eos % (Auto) 0.9, Baso % (Auto) 0.7, Neut # (Auto) 5.8, Lymph # (Auto) 2.3, Isabella # (Auto) 0.3, Eos # (Auto) 0.1, Baso # (Auto) 0.1, Sodium 126 L, Potassium 4.2, Chloride 98, Carbon Dioxide 18 L, Anion Gap 14.2, BUN 11, Creatinine 0.60, Estimated Creat Clear 67, Estimated GFR 101, Est GFR ( Amer) 123, Glucose 135 H, Calcium 9.7, Total Bilirubin 0.5, AST 39 H, ALT 42, Alkaline Phosphatase 77, Total Protein 7.6, Albumin 4.4, Globulin 3.2, Albumin/Globulin Ratio 1.4 10/31/23 06:55: Urine Color Straw, Urine Appearance Slightly cloudy, Urine pH 7.5, Ur Specific [place] 1.015, Urine Protein Negative, Urine Glucose (UA) Negative, Urine Ketones Negative, Urine Blood Trace-i, Urine Nitrate Positive, Urine Bilirubin Negative, Urine Urobilinogen 0.2, Ur Leukocyte Esterase 2+ A, Urine RBC 3-5, Urine WBC 5-10, Ur Squamous Epith Cells 3-5, Amorphous Sediment 2+, Urine Bacteria 1+ 10/31/23 05:50 10/31/23 05:50 Orders (Tests/Meds): ED MEDICATIONS Discontinued Medications Generic Name Dose Route Start Last Admin Trade Name Freq PRN Reason Stop Dose Admin Acetaminophen 1,000 mg 10/31/23 05:40 10/31/23 05:46 Acetaminophen 1,000mg/100ml Vial IV 10/31/23 05:41 1,000 mg ONCE ONE Administration Hydromorphone HCl 0.5 mg 10/31/23 06:22 10/31/23 06:26 Hydromorphone 2mg/Ml Syringe IV 10/31/23 06:23 0.5 mg ONCE ONE Administration Sodium Chloride 1,000 mls @ 999 mls/hr 10/31/23 05:45 10/31/23 05:46 Sod Chlor 0.9% 1000ml Bag IV 10/31/23 06:45 999 mls/hr .Q1H1M DOMINIC Administration Iopamidol 100 ml 10/31/23 06:49 10/31/23 06:50 Iopamidol-370 (76%);100ml Bottle IV 10/31/23 06:50 100 ml ONCE ONE Administration Ketorolac Tromethamine 30 mg 10/31/23 05:40 10/31/23 05:47 Ketorolac 30mg/Ml Vial IV 10/31/23 05:41 30 mg ONCE ONE Administration Morphine Sulfate 4 mg 10/31/23 05:40 10/31/23 05:47 Morphine 4mg/Ml Syringe IV 10/31/23 05:41 4 mg ONCE ONE Administration Ondansetron HCl 4 mg 10/31/23 05:40 10/31/23 05:47 Ondansetron 4mg/2ml Vial IV 10/31/23 05:41 4 mg ONCE ONE Administration Phenazopyridine HCl 200 mg 10/31/23 08:23 10/31/23 08:31 Phenazopyridine 200mg Tablet PO 10/31/23 08:24 200 mg ONCE ONE Administration Promethazine HCl 25 mg 10/31/23 06:09 10/31/23 06:11 Promethazine Hcl 25mg/Ml 1ml Vial IV 10/31/23 06:10 25 mg ONCE ONE Administration Sodium Chloride 25 ml 10/31/23 06:09 10/31/23 06:11 Sodium Chloride 0.9% 25ml Bag IV 10/31/23 06:10 25 ml ONCE ONE Administration Sodium Chloride 50 ml 10/31/23 06:49 10/31/23 06:50 0.9 % Sodium Chloride 50 Ml Vial IV 10/31/23 06:50 50 ml ONCE ONE Administration Sodium Chloride 10 ml 10/31/23 06:49 10/31/23 06:50 Sodium Chloride 0.9% 10ml Syr (Rad Only) IV 10/31/23 06:50 10 ml ONCE ONE Administration ORDERS Category Date Time Status CT abdomen pelvis wo con Stat Cat Scan 10/31/23 05:[address] angio abdomen pelvis Stat Cat Scan 10/31/23 06:[address] angio chest - dissection Stat Cat Scan 10/31/23 06:23 Completed CBC w/Auto Diff [Complete Blood Count Auto Diff] Stat Lab 10/31/23 05:50 Completed CMP [Comprehensive Metabolic Panel] Stat Lab 10/31/23 05:50 Completed UA [Urinalysis and Microscopic] Stat Lab 10/31/23 06:55 Completed Blood Culture Stat Micro 10/31/23 06:10 Received Urine Culture Stat Micro 10/31/23 06:55 Received Medical Decision Narrative: 63-year-old female with history of hypertension hyperlipidemia diabetes chronic UTIs, renal lithiasis presents with severe lower abdominal pain.. History was obtained interactive discussion with patient, chart review. On arrival, patient is afebrile, tachycardic, hypertensive with systolics greater than 200, uncomfortable appearing, moving all extremities spontaneously. Full physical exam performed and significant for abdominal tenderness, normal neurovascular exam of the lower extremities Differential includes but is not limited to renal lithiasis, pyelonephritis, cystitis, diverticulitis, appendicitis, aortic pathology. patient was given 1 L of normal saline fluid bolus, IV Tylenol, IV Toradol, IV morphine IV Zofran for symptomatic management and correction of underlying abnormalities. Workup initiated including CBC CMP UA Noncon CT blood cultures. On re-evaluation, patient remains in severe pain, intermittently vomiting and dry heaving, remains tachycardic and hypertensive. Patient given IV Phenergan and Dilaudid. Imaging independently interpreted by me and significant for no obvious large kidney stone on Noncon CT, no hydronephrosis, nothing to explain patient's severe pain. Given this, we will send patient back to CT for CTA's to evaluate for vascular pathology. See radiology read for full review of final results. Laboratory studies significant for hyponatremia with sodium 126, down from 134 last year, no significant leukocytosis. Patient is still not given us a urine sample. At this time care handed off to oncoming physician pending CT imaging, urine studies, reassessment. <Inez Lee, DO - Last Filed: 10/31/23 08:40> Vital Signs: 10/31/23 05:50 10/31/23 05:52 10/31/23 06:21 Temperature 98.1 F Temperature Source Oral Pulse Rate 106 H 102 H Pulse Rate [Right Radial] 123 H Respiratory Rate 22 Blood Pressure 215/115 H 155/104 H Blood Pressure [Right Arm] 215/115 H Blood Pressure Mean [Right Arm] 148 Blood Pressure Source Blood Pressure Source [Right Arm] Automatic Cuff Blood Pressure Position Blood Pressure Position [Right Arm] Sitting 02 Sat by Pulse Oximetry 99 89 L 96 Oxygen Delivery Method Room Air 10/31/23 06:30 10/31/23 07:01 10/31/23 07:31 Temperature Temperature Source Pulse Rate 97 H 100 H 88 Pulse Rate [Right Radial] Respiratory Rate Blood Pressure 156/87 H 180/89 H 139/72 Blood Pressure [Right Arm] Blood Pressure Mean [Right Arm] Blood Pressure Source Blood Pressure Source [Right Arm] Blood Pressure Position Blood Pressure Position [Right Arm] 02 Sat by Pulse Oximetry 96 97 97 Oxygen Delivery Method Room Air Room Air 10/31/23 08:01 10/31/23 08:35 Temperature 97.9 F Temperature Source Oral Pulse Rate 91 H 84 Pulse Rate [Right Radial] Respiratory Rate 18 Blood Pressure 159/84 H 147/85 H Blood Pressure [Right Arm] Blood Pressure Mean [Right Arm] Blood Pressure Source Automatic Cuff Blood Pressure Source [Right Arm] Blood Pressure Position Sitting Blood Pressure Position [Right Arm] 02 Sat by Pulse Oximetry 97 Oxygen Delivery Method Room Air Room Air Lab Data Lab Results 10/31/23 05:50: WBC 8.5, RBC 5.21, Hgb 15.5, Hct 45.2, MCV 86.8, MCH 29.7, MCHC 34.2, RDW 13.6, Plt Count 279, MPV 7.3 L, Neut % (Auto) 67.5, Lymph % (Auto) 27.3, Isabella % (Auto) 3.6, Eos % (Auto) 0.9, Baso % (Auto) 0.7, Neut # (Auto) 5.8, Lymph # (Auto) 2.3, Isabella # (Auto) 0.3, Eos # (Auto) 0.1, Baso # (Auto) 0.1, Sodium 126 L, Potassium 4.2, Chloride 98, Carbon Dioxide 18 L, Anion Gap 14.2, BUN 11, Creatinine 0.60, Estimated Creat Clear 67, Estimated GFR 101, Est GFR ( Amer) 123, Glucose 135 H, Calcium 9.7, Total Bilirubin 0.5, AST 39 H, ALT 42, Alkaline Phosphatase 77, Total Protein 7.6, Albumin 4.4, Globulin 3.2, Albumin/Globulin Ratio 1.4 10/31/23 06:55: Urine Color Straw, Urine Appearance Slightly cloudy, Urine pH 7.5, Ur Specific [place] 1.015, Urine Protein Negative, Urine Glucose (UA) Negative, Urine Ketones Negative, Urine Blood Trace-i, Urine Nitrate Positive, Urine Bilirubin Negative, Urine Urobilinogen 0.2, Ur Leukocyte Esterase 2+ A, Urine RBC 3-5, Urine WBC 5-10, Ur Squamous Epith Cells 3-5, Amorphous Sediment 2+, Urine Bacteria 1+ Orders (Tests/Meds): ED MEDICATIONS Discontinued Medications Generic Name Dose Route Start Last Admin Trade Name Freq PRN Reason Stop Dose Admin Acetaminophen 1,000 mg 10/31/23 05:40 10/31/23 05:46 Acetaminophen 1,000mg/100ml Vial IV 10/31/23 05:41 1,000 mg ONCE ONE Administration Hydromorphone HCl 0.5 mg 10/31/23 06:22 10/31/23 06:26 Hydromorphone 2mg/Ml Syringe IV 10/31/23 06:23 0.5 mg ONCE ONE Administration Sodium Chloride 1,000 mls @ 999 mls/hr 10/31/23 05:45 10/31/23 05:46 Sod Chlor 0.9% 1000ml Bag IV 10/31/23 06:45 999 mls/hr .Q1H1M DOMINIC Administration Iopamidol 100 ml 10/31/23 06:49 10/31/23 06:50 Iopamidol-370 (76%);100ml Bottle IV 10/31/23 06:50 100 ml ONCE ONE Administration Ketorolac Tromethamine 30 mg 10/31/23 05:40 10/31/23 05:47 Ketorolac 30mg/Ml Vial IV 10/31/23 05:41 30 mg ONCE ONE Administration Morphine Sulfate 4 mg 10/31/23 05:40 10/31/23 05:47 Morphine 4mg/Ml Syringe IV 10/31/23 05:41 4 mg ONCE ONE Administration Ondansetron HCl 4 mg 10/31/23 05:40 10/31/23 05:47 Ondansetron 4mg/2ml Vial IV 10/31/23 05:41 4 mg ONCE ONE Administration Phenazopyridine HCl 200 mg 10/31/23 08:23 10/31/23 08:31 Phenazopyridine 200mg Tablet PO 10/31/23 08:24 200 mg ONCE ONE Administration Promethazine HCl 25 mg 10/31/23 06:09 10/31/23 06:11 Promethazine Hcl 25mg/Ml 1ml Vial IV 10/31/23 06:10 25 mg ONCE ONE Administration Sodium Chloride 25 ml 10/31/23 06:09 10/31/23 06:11 Sodium Chloride 0.9% 25ml Bag IV 10/31/23 06:10 25 ml ONCE ONE Administration Sodium Chloride 50 ml 10/31/23 06:49 10/31/23 06:50 0.9 % Sodium Chloride 50 Ml Vial IV 10/31/23 06:50 50 ml ONCE ONE Administration Sodium Chloride 10 ml 10/31/23 06:49 10/31/23 06:50 Sodium Chloride 0.9% 10ml Syr (Rad Only) IV 10/31/23 06:50 10 ml ONCE ONE Administration ORDERS Category Date Time Status CT abdomen pelvis wo con Stat Cat Scan 10/31/23 05:[address] angio abdomen pelvis Stat Cat Scan 10/31/23 06:[address] angio chest - dissection Stat Cat Scan 10/31/23 06:23 Completed CBC w/Auto Diff [Complete Blood Count Auto Diff] Stat Lab 10/31/23 05:50 Completed CMP [Comprehensive Metabolic Panel] Stat Lab 10/31/23 05:50 Completed UA [Urinalysis and Microscopic] Stat Lab 10/31/23 06:55 Completed Blood Culture Stat Micro 10/31/23 06:10 Received Urine Culture Stat Micro 10/31/23 06:55 Received Medical Decision Narrative: 63-year-old female with history of hypertension hyperlipidemia diabetes chronic UTIs, renal lithiasis presents with severe lower abdominal pain.. History was obtained interactive discussion with patient, chart review. On arrival, patient is afebrile, tachycardic, hypertensive with systolics greater than 200, uncomfortable appearing, moving all extremities spontaneously. Full physical exam performed and significant for abdominal tenderness, normal neurovascular exam of the lower extremities Differential includes but is not limited to renal lithiasis, pyelonephritis, cystitis, diverticulitis, appendicitis, aortic pathology. patient was given 1 L of normal saline fluid bolus, IV Tylenol, IV Toradol, IV morphine IV Zofran for symptomatic management and correction of underlying abnormalities. Workup initiated including CBC CMP UA Noncon CT blood cultures. On re-evaluation, patient remains in severe pain, intermittently vomiting and dry heaving, remains tachycardic and hypertensive. Patient given IV Phenergan and Dilaudid. Imaging independently interpreted by me and significant for no obvious large kidney stone on Noncon CT, no hydronephrosis, nothing to explain patient's severe pain. Given this, we will send patient back to CT for CTA's to evaluate for vascular pathology. See radiology read for full review of final results. Laboratory studies significant for hyponatremia with sodium 126, down from 134 last year, no significant leukocytosis. Patient is still not given us a urine sample. At this time care handed off to oncoming physician pending CT imaging, urine studies, reassessment. DO Jesus: On my assessment of the patient, she states that she is feeling better. Vitals are reassuring abdominal exam is benign on reassessment. CT scan did not demonstrate any acutely concerning abnormalities. Please see radiology read for final interpretation. Urine is concerning for infection, but labs are otherwise reassuring. Patient reports that she has had a history of complicated recurrent urinary tract infections over the last 16 months. Given this, decision was made to treat this as complicated UTI with Cipro. She was given prescriptions for ciprofloxacin, Pyridium, and Zofran. She is able to tolerate oral intake, so given this, improved symptoms, and reassuring exam, I feel that she is appropriate for discharge home with instructions for supportive management and these prescriptions. She was given strict return precautions and was discharged after all questions were answered with plan for close outpatient follow-up. Procedures <Esequiel Calloway MD - Last Filed: 10/31/23 06:55> Risk/Benefits of Procedure(s) Were Explained: Yes Critical Care <Esequiel Calloway MD - Last Filed: 10/31/23 06:55> Critical Care Time Critical Care Time: No
--- NOTE | 2023-10-31 06:36 | PC.NURSE ---
patient to CT
[2023-10-31] MEDS: SODIUM CHLORIDE 0.9% 10ML SYR (RAD ONLY) 10 ML IV (06:50)
[2023-10-31] MEDS: 0.9 % SODIUM CHLORIDE 50 ML VIAL IV (06:50)
[2023-10-31] MEDS: IOPAMIDOL-370 (76%);100ML BOTTLE 100 ML IV (06:50)
--- NOTE | 2023-10-31 06:51 | PC.NURSE ---
patient assisted to bathroom for urine sample
--- NOTE | 2023-10-31 06:58 | PC.NURSE ---
urine collected and sent to lab
[2023-10-31 07:01] LABS: Microscopic, Urine URINE MICROSCOPIC (MICROSCOPIC)
[2023-10-31 07:03] LABS: Bilirubin,Urine Negative (Negative); Blood, Urine TRACE-I (Negative); Glucose,Urine (UA) Negative (Negative); Ketones,Urine Negative (Negative); Leukocyte Esterase,Urine 2+ (Negative); Nitrate,Urine POSITIVE (Negative); PH,Urine 7.5 (5.0-8.5); Protein,Urine Negative (Negative); Specific Gravity, Urine 1.015 (1.005-1.030); Urobilinogen,Urine 0.2 EU/dl (0.2)
[2023-10-31 07:06] LABS: Appearance,Urine Slightly Cloudy (Clear); Color,Urine Straw (Yellow)
[2023-10-31 07:21] LABS: Amorphous Sediment,Urine 2+ /lpf; Bacteria,Urine 1+ /lpf
--- NOTE | 2023-10-31 07:21 | PC.NURSE ---
Rounded on patient, no needs at this time.
--- NOTE | 2023-10-31 07:52 | PC.NURSE ---
SPOKE WITH ALFONSO IN RADIOLOGY, CHEST CTA IS BEING READ
[2023-10-31] MEDS: PHENAZOPYRIDINE 200MG TABLET 200 MG PO (08:31)
--- NOTE | 2023-11-03 10:12 | PC.NURSE ---
urine culture results discussed with , pt dc with milvia, ntd
--- NOTE | 2023-11-06 08:59 | PC.NURSE ---
reviewed urine culture with MD; no action needed
== END 2023-10-31 08:35 | disposition home or self-care (01) ==
PROVIDERS: Emergency Medicine; Emergency Provider Emergency Medicine
DX: R10.31 Right lower quadrant pain (principal); N39.0 Urinary tract infection, site not specified; E87.1 Hypo-osmolality and hyponatremia; B96.4 Proteus (mirabilis) (morganii) as the cause of diseases classified elsewhere; R11.2 Nausea with vomiting, unspecified; R00.0 Tachycardia, unspecified; I10 Essential (primary) hypertension; E11.9 Type 2 diabetes mellitus without complications; E78.5 Hyperlipidemia, unspecified; E03.9 Hypothyroidism, unspecified; Z79.84 Long term (current) use of oral hypoglycemic drugs
CPT/HCPCS: 71275; 74174; 74176; 80053; 81001; 85025; 87040; 87086; 96361; 96374; 96375; 99285; J0131; J2405; Q9967

== ENCOUNTER 2023-11-02 11:21 | Emergency (ER) | payer OTHER, SELFPAY ==
[2023-11-02] VITALS (8 sets, daily range): BP systolic 140–201; BP diastolic 84–123; PULSE 98–119; RESP 12–18; TEMP 36.5–37; O2SAT 95–97; BMI 31.2
--- NOTE | 2023-11-02 11:22 | ECG_ITS ---
APPROVED REPORT Exam: Resting ECG HR:128 bpm ECG Measurements Heart Rate 128 AXES LA 169 P 61 QRSd 79 QRS 80 QT 383 T 62 QTc 459 Conclusion SINUS TACHYCARDIA NONSPECIFIC ST & T-WAVE ABNORMALITY ABNORMAL RHYTHM ECG Electronically signed by : JEREMÍAS ENNIS, 11/03/2023 06:08:27
--- NOTE | 2023-11-02 11:36 | CT_ITS ---
FINAL REPORT TECHNIQUE: Thin section axial CT with contrast with multiplanar reconstruction. This study was performed with techniques to keep radiation doses as low as reasonably achievable, (ALARA). Individualized dose reduction techniques using automated exposure control or adjustment of mA and/or kV according to the patient's size were employed. CLINICAL HISTORY: CP, tachy, global weak COMPARISON: 10/31/2023 FINDINGS: Pulmonary vessels enhance in normal fashion without evidence of embolism. Thoracic aorta shows no dissection or aneurysm. No pulmonary mass or infiltrate is present. There is no significant pleural effusion. There is no significant pericardial effusion. No mediastinal or hilar adenopathy is present. IMPRESSION: No evidence of pulmonary embolism. No evidence of thoracic dissection or aneurysm. Reviewed, Interpreted and Dictated by Adilson Gerber MD Transcribed by Darcie Malik Authenticated and [facility]
--- NOTE | 2023-11-02 11:36 | CT_ITS ---
FINAL REPORT TECHNIQUE: Noncontrast exam. This study was performed with techniques to keep radiation doses as low as reasonably achievable, (ALARA). Individualized dose reduction techniques using automated exposure control or adjustment of mA and/or kV according to the patient's size were employed. 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 No abnormal density is seen. Ventricles are normal. There is no hemorrhage. No mass effect is seen. Bone windows show no evidence of fracture. IMPRESSION: No acute findings Reviewed, Interpreted and Dictated by Adilson Gerber MD Transcribed by Darcie Malik Authenticated and . [facility]
--- NOTE | 2023-11-02 11:36 | XR_ITS ---
FINAL REPORT CLINICAL HISTORY: Precordial cp COMPARISON: None FINDINGS: No acute pulmonary opacity is present. There is no evidence of effusion or pneumothorax. Mediastinum is unremarkable. Heart size is normal. IMPRESSION: No acute abnormality. Reviewed, Interpreted and Dictated by Adilson Gerber MD Transcribed by Darcie Malik Authenticated and [facility]
--- NOTE | 2023-11-02 11:39 | PC.NURSE ---
pt observed from the nurses station having jerking/shaking like behavior, presented to the room, during this episode pt is able to talk stating that she is having a seizure and shake her head. Episode lasted for 5 seconds, promptly after she was able to sign paperwork for staff, A&O, stating that she hasnt had a seizure like this in years, took her seizure medicine this am. aware
--- NOTE | 2023-11-02 11:41 | ED_ITS ---
Discharge Plan Disposition Patient Disposition: Home, Self-Care Chief Complaint: Weakness Prescriptions Prescriptions: No Action clopidogrel 75 mg tablet 75 mg PO DAILY losartan-hydrochlorothiazide 100-12.5 mg tablet 1 tab PO DAILY Patient Comments: TAKE 1 TABLET BY MOUTH ONCE DAILY levothyroxine 75 mcg tablet 75 mcg PO DAILY atorvastatin 40 mg tablet 40 mg PO DAILY oxcarbazepine 300 mg tablet 300 mg PO BID Patient Comments: TAKE 1 TABLET BY MOUTH TWICE DAILY Atrovent HFA 17 mcg/actuation HFA aerosol inhaler 2 inh inhalation Q4H PRN fluticasone furoate-vilanterol [Breo Ellipta] 200-25 mcg/dose blister with device 1 inh inhalation DAILY Januvia 50 mg tablet 50 mg PO DAILY ascorbic acid (vitamin C) [Vitamin C With Freya Hips] 500 mg tablet 500 mg PO TID methenamine hippurate 1 gram tablet 1 g PO ONCE prasterone (dhea) 6.5 mg insert 1 insert vaginal HS isosorbide mononitrate 30 mg tablet extended release 24 hr 30 mg PO DAILY 90 Days Qty: 90 1RF cefdinir 300 mg capsule 300 mg PO BID 14 Days Qty: 28 0RF ondansetron HCl 4 mg tablet 4 mg PO Q6H PRN (Reason: nausea and vomiting) Qty: 10 0RF Saccharomyces boulardii [Florastor] 250 mg capsule 250 mg PO DAILY Qty: 30 0RF ciprofloxacin HCl 500 mg tablet 500 mg PO BID Qty: 20 0RF ondansetron HCl 4 mg tablet 4 mg PO Q8H PRN (Reason: nausea and vomiting) 4 Days Qty: 12 0RF phenazopyridine [Pyridium] 200 mg tablet 200 mg PO Q8H PRN (Reason: pain) Qty: 10 0RF Referrals Follow up/Referrals: Jarvis Ingram MD [Primary Care Provider] - See instructions Activity Restrictions/Add. Instructions Additional Instructions/Restrictions: At this time it was felt you are safe to be discharged home. If new or worsening symptoms please do not hesitate to return the emergency department. If symptoms persist please follow-up with your family doctor as you are able. Clinical Impressions Clinical Impression: Provoked seizure, UTI (urinary tract infection) Discharge ED Provider: Rafael Guzman General Adult HPI General Chief complaint: Weakness Stated complaint: fever, blood in urine, syncope Time Seen by Provider: 11/02/23 11:34 Mode of Arrival: Wheelchair Source of Information: Patient Limitations: No Limitations Description of Symptoms (Recalled from ER Triage Doc. by RN): pt presents to ED c/o weakness. pt states she woke up with chest pain, denies chest pain at this time states pain resolved prior to arrival at ED. pt states she is currently on Cipro for an UTI. pt reports haivng a UTI for 16 months and is currently seeing urology. pt reports hx of seizures, involuntary movement noted in extremities. Pt A&Ox4. History of Present Illness HPI narrative: Patient is a 63-year-old female with past medical history of seizure disorder on oxcarbazepine, recurrent urinary tract infections who presents emergency department for evaluation of weakness. Patient states that she was diagnosed with a urinary tract infection and has been taking her medication as prescribed. This morning patient developed global weakness in her bilateral upper and lower extremities. She states that her seizure phenotype at baseline starts on one side and generalized to the other side however she is aware when these happen and does not have postictal state, is able to converse. She had to be helped in from the parking lot due to her global weakness and has shaking movements of her arms however is conversational. She states that she has had twitching movements of her arms and legs for months. No other acute complaints at this time. No trauma. Related Data Home Medications Medication Instructions Recorded Confirmed atorvastatin 40 mg tablet 40 mg PO DAILY 01/09/23 02/01/23 clopidogrel 75 mg tablet 75 mg PO DAILY 01/09/23 02/01/23 fluticasone furoate 200 1 inh inhalation DAILY 01/09/23 02/01/23 mcg-vilanterol 25 mcg/dose inhalation powder (Breo Ellipta) ipratropium bromide 17 2 inh inhalation Q4H PRN 01/09/23 02/01/23 mcg/actuation HFA aerosol inhaler (Atrovent HFA) levothyroxine 75 mcg tablet 75 mcg PO DAILY 01/09/23 02/01/23 losartan 100 1 tab PO DAILY 01/09/23 02/01/23 mg-hydrochlorothiazide 12.5 mg tablet oxcarbazepine 300 mg tablet 300 mg PO BID 01/09/23 02/01/23 sitagliptin phosphate 50 mg tablet 50 mg PO DAILY 01/09/23 02/01/23 (Januvia) ascorbic acid (vitamin C) 500 mg 500 mg PO TID 02/01/23 02/01/23 tablet (Vitamin C With Freya Hips) methenamine hippurate 1 gram tablet 1 g PO ONCE 02/01/23 02/01/23 prasterone (dhea) 6.5 mg vaginal 1 insert vaginal HS 02/01/23 02/01/23 insert Previous Rx's Medication Instructions Recorded Saccharomyces boulardii 250 mg 250 mg PO DAILY #30 caps 02/02/23 capsule (Florastor) cefdinir 300 mg capsule 300 mg PO BID 14 days #28 caps 02/02/23 ondansetron HCl 4 mg tablet 4 mg PO Q6H PRN nausea and 02/02/23 vomiting #10 tabs isosorbide mononitrate 30 mg 30 mg PO DAILY 90 days #90 tabs 04/10/23 tablet,extended release 24 hr ciprofloxacin HCl 500 mg tablet 500 mg PO BID #20 tabs 10/31/23 ondansetron HCl 4 mg tablet 4 mg PO Q8H PRN nausea and 10/31/23 vomiting 4 days #12 tabs phenazopyridine 200 mg tablet 200 mg PO Q8H PRN pain 6 doses #10 10/31/23 (Pyridium) tabs Allergies Allergy/AdvReac Type Severity Reaction Status Date / Time budesonide [From Symbicort] Allergy Other Verified 02/02/23 08:04 formoterol [From Symbicort] Allergy Other Verified 02/02/23 08:04 Aspirin Allergy Severe S-DIFF. Uncoded 02/01/23 14:27 BREATHING CELERY Allergy Severe STOMACH Uncoded 02/01/23 14:27 SWELLS NUTS (FOOD) Allergy Severe S-DIFF. Uncoded 02/01/23 14:27 BREATHING SULFA (sulfonamide) Allergy Severe S-SWELLS-OR Uncoded 02/01/23 14:27 AL/THROAT metformin Allergy Mild chest pains Uncoded 02/01/23 14:27 PFSH PFSH Disclaimer: The information contained in this section may have been updated after the patient was seen, as this information can be updated by other users. Medical History Stroke Surgical History H/O: hysterectomy has right ovary Family History Other Alcoholism Asthma Diabetes Hyperlipidemia Hypertension Stroke Thyroid disorder Social History Smoking Status: Never smoker alcohol intake: never current occupational status: retired Travel in the last 8 weeks: None ROS Obtained: Yes Systems reviewed as appropriate & no additional complaints except as documented Physical Exam General General appearance: alert, in no apparent distress and other (Intermittent jerking of upper and lower extremities) Head Head exam: atraumatic and normocephalic Eye Eye exam: Present PERRL and EOMI ENT ENT exam: Present mucous membranes moist Neck Neck exam: Present normal inspection Chest Chest inspection: Present normal inspection and symmetric chest wall rise Respiratory Respiratory exam: Present normal lung sounds bilaterally; Absent respiratory distress Cardiovascular Cardiovascular exam: Present regular rate and normal rhythm Abdominal Exam Abdominal exam: Present soft; Absent tenderness Extremities Exam Extremities exam: Present normal inspection Neurological Exam Neurological exam: Present alert, CN II-XII intact and other (Bilateral upper extremities 4 out of 5 strength, bilateral lower extremities 3 out of 5 strength with difficulty.) Psychiatric Psychiatric exam: Present normal affect Skin Skin exam: Present warm and dry Medical Decision Making Edison Inquiry Pt receiving controlled substance: No Vital Signs: 11/02/23 11:22 11/02/23 11:40 11/02/23 12:01 Temperature 98.6 F Temperature Source Oral Pulse Rate 114 H 98 H Pulse Rate [Right Radial] 119 H Respiratory Rate 16 16 14 Blood Pressure 189/123 H 162/84 H Blood Pressure [Right Arm] 201/116 H Blood Pressure Mean 112 Blood Pressure Mean [Right Arm] 144 Blood Pressure Source Automatic Cuff Blood Pressure Source [Right Arm] Automatic Cuff Blood Pressure Position Supine Blood Pressure Position [Right Arm] Supine 02 Sat by Pulse Oximetry 96 96 97 Oxygen Delivery Method Room Air Room Air 11/02/23 12:30 11/02/23 13:00 11/02/23 13:30 Temperature Temperature Source Pulse Rate 105 H 107 H 100 H Pulse Rate [Right Radial] Respiratory Rate 13 12 18 Blood Pressure 192/85 H 172/100 H 151/99 H Blood Pressure [Right Arm] Blood Pressure Mean 120 125 Blood Pressure Mean [Right Arm] Blood Pressure Source Blood Pressure Source [Right Arm] Blood Pressure Position Blood Pressure Position [Right Arm] 02 Sat by Pulse Oximetry 95 95 95 Oxygen Delivery Method Room Air 11/02/23 14:30 Temperature Temperature Source Pulse Rate 101 H Pulse Rate [Right Radial] Respiratory Rate 13 Blood Pressure 156/84 H Blood Pressure [Right Arm] Blood Pressure Mean Blood Pressure Mean [Right Arm] Blood Pressure Source Blood Pressure Source [Right Arm] Blood Pressure Position Blood Pressure Position [Right Arm] 02 Sat by Pulse Oximetry 96 Oxygen Delivery Method Lab Data Lab Results 11/02/23 11:30: WBC 6.2 D, RBC 5.04, Hgb 15.2, Hct 43.9, MCV 87.2, MCH 30.1, MCHC 34.5, RDW 13.5, Plt Count 290, MPV 7.5, Neut % (Auto) 59.5, Lymph % (Auto) 28.5, [place] % (Auto) 10.5 H, Eos % (Auto) 0.6, Baso % (Auto) 0.9, Neut # (Auto) 3.7, Lymph # (Auto) 1.8, [place] # (Auto) 0.7, Eos # (Auto) 0.0, Baso # (Auto) 0.1, Sodium 131 L, Potassium 3.9, Chloride 102, Carbon Dioxide 19 L, Anion Gap 13.9, BUN 22 H D, Creatinine 0.90 D, Estimated Creat Clear 67, Estimated GFR 63, Est GFR ( Amer) 77 D, Glucose 184 H, Calcium 10.1, Magnesium 1.8, Total Bilirubin 0.7, AST 47 H, ALT 46, Alkaline Phosphatase 79, Troponin I < 0.01, T otal Protein 8.6 H, Albumin 4.7, Globulin 3.9 H, Albumin/Globulin Ratio 1.2 11/02/23 12:52: Urine Color [place], Urine Appearance Clear, Urine pH 7.0, Ur Specific [place] 1.010, Urine Protein Negative, Urine Glucose (UA) Trace, Urine Ketones Negative, Urine Blood Negative, Urine Nitrate Positive, Urine Bilirubin Negative, Urine Urobilinogen 2.0, Ur Leukocyte Esterase Trace, Urine RBC Occasional, Urine WBC 3-5, Ur Squamous Epith Cells 3-5, Urine Bacteria Trace 11/02/23 11:30 11/02/23 11:30 Orders (Tests/Meds): ED MEDICATIONS Discontinued Medications Generic Name Dose Route Start Last Admin Trade Name Freq PRN Reason Stop Dose Admin Iopamidol 100 ml 11/02/23 12:19 11/02/23 12:20 Iopamidol-370 (76%);100ml Bottle IV 11/02/23 12:20 100 ml ONCE ONE Administration Sodium Chloride 50 ml 11/02/23 12:19 11/02/23 12:20 0.9 % Sodium Chloride 50 Ml Vial IV 11/02/23 12:20 50 ml ONCE ONE Administration Sodium Chloride 10 ml 11/02/23 12:19 11/02/23 12:20 Sodium Chloride 0.9% 10ml Syr (Rad Only) IV 11/02/23 12:20 10 ml ONCE ONE Administration ORDERS Category Date Time Status CT angio chest - dissection Stat Cat Scan 11/02/23 11:[address] head/brain wo con Stat Cat Scan 11/02/23 11:36 Completed CXR --portable [XR chest portable] Stat Exams 11/02/23 11:36 Completed CBC w/Auto Diff [Complete Blood Count Auto Diff] Stat Lab 11/02/23 11:30 Completed CMP [Comprehensive Metabolic Panel] Stat Lab 11/02/23 11:30 Completed MG [Magnesium] Stat Lab 11/02/23 11:30 Completed Trop I [Troponin I] Stat Lab 11/02/23 11:30 Completed Troponin I Q3H Lab 11/02/23 14:45 Ordered Troponin I Q3H Lab 11/02/23 17:45 Ordered UA [Urinalysis and Microscopic] Stat Lab 11/02/23 12:52 Completed ECG Data Tracing #1: Independently interpreted by me, rate is 128, rhythm is regular, sinus tachycardia, axis is normal, no ST elevation in anatomical contiguous leads, QTc 459. Medical Decision Narrative: In summary patient is a 63-year-old female past medical history described above who presents emergency department for evaluation of global weakness, chest pain, jerking movements. Patient is hemodynamically stable nontoxic-appearing upon arrival, tachycardic. Differential diagnosis includes critical electrolyte abnormality, medication adverse reaction, aortic dissection, intracranial mass, ACS, among others. Workup will be conducted with hematologic labs, noncontrasted CT scan of the head, CTA chest dissection protocol. It is difficult to ascertain whether or not patient has simple complex seizures or not, however patient is conversational and is alert while it affects both sides of her body. Workup reviewed by me, hematologic labs are nonactionable, stable hyponatremia, no critical electrolyte abnormality, initial troponin undetectably low. Urinalysis nitrate positive with white blood cells and trace bacteria. Patient may have provoked seizure in the setting of urinary tract infection. CT imaging shows no acute pathology. Patient underwent multiple hours of observation in the emergency department had no ongoing seizure-like activity. On repeat evaluation patient was ambulatory bedside. Given this patient was appropriate for discharge at this time was given return precautions. Critical Care Critical Care Time Critical Care Time: No
[2023-11-02 11:52] LABS: Chloride 102 mmol/L (98-107); Potassium 3.9 mmoL/L (3.5-5.1); Sodium 131 mmol/L (136-145)
[2023-11-02 11:55] LABS: Alanine Aminotransferase 46 U/L (12-78); Albumin Level 4.7 g/dl (3.5-5.0); Albumin/Globulin Ratio 1.2 (1.1-1.8); Alkaline Phosphatase 79 U/L (38-126); Anion Gap 13.9 mEq/L (5-15); Aspartate Amino Transferase 47 U/L (14-36); Bilirubin,Total 0.7 mg/dl (0.2-1.3); Blood Urea Nitrogen 22 mg/dl (7-17); Calcium 10.1 mg/dl (8.4-10.2); Carbon Dioxide 19 mmol/L (22.0-30.0); Creatinine Clearance Estimated 67 mL/min (50-200); Estimated Glomerular Filt Rate 63 ml/min (>60); GFR (African American) 77 ML/MIN (>60); Globulin 3.9 g/dL (1.3-3.2); Glucose 184 mg/dl (74-100); Total Protein,Serum 8.6 g/dl (6.3-8.2)
[2023-11-02 11:56] LABS: Magnesium 1.8 mg/dl (1.6-2.3)
[2023-11-02 12:10] LABS: Troponin I < 0.01 ng/ml (0.00-0.034)
[2023-11-02] MEDS: 0.9 % SODIUM CHLORIDE 50 ML VIAL IV (12:20)
[2023-11-02] MEDS: IOPAMIDOL-370 (76%);100ML BOTTLE 100 ML IV (12:20)
[2023-11-02] MEDS: SODIUM CHLORIDE 0.9% 10ML SYR (RAD ONLY) 10 ML IV (12:20)
[2023-11-02 12:25] LABS: Basophils # 0.1 K/mm3 (0-0.2); Basophils % 0.9 % (0.1-2.0); Eosinophils % 0.6 % (0.1-12.0); Hematocrit 43.9 % (37.0-47.0); Hemoglobin 15.2 g/dL (12.2-16.2); Lymphocytes # 1.8 K/mm3 (0.7-4.5); Lymphocytes % 28.5 % (10-50); Mean Corpuscular HGB Conc 34.5 g/dL (31.8-35.4); Mean Corpuscular Hemoglobin 30.1 pg (27.0-31.2); Mean Corpuscular Volume 87.2 fl (81-99); Mean Platelet Volume 7.5 fl (7.4-10.4); Monocytes # 0.7 K/mm3 (0.1-1.0); Monocytes % 10.5 % (1.7-9.3); Neutrophils # 3.7 K/mm3 (1.8-7.8); Neutrophils % 59.5 % (37.0-80.0); Platelet Count 290 K/mm3 (142-424); Red Blood Count 5.04 M/mm3 (4.20-5.40); Red Cell Distribution Width 13.5 % (11.5-17.5); White Blood Count 6.2 K/mm3 (4.8-10.8)
[2023-11-02 12:55] LABS: Microscopic, Urine URINE MICROSCOPIC (MICROSCOPIC)
[2023-11-02 12:58] LABS: Appearance,Urine CLEAR (Clear); Bilirubin,Urine Negative (Negative); Blood, Urine Negative (Negative); Color,Urine ORANGE (Yellow); Glucose,Urine (UA) TRACE (Negative); Ketones,Urine Negative (Negative); Leukocyte Esterase,Urine TRACE (Negative); Nitrate,Urine POSITIVE (Negative); Protein,Urine Negative (Negative)
[2023-11-02 13:14] LABS: Bacteria,Urine Trace /lpf; RBC,Urine Occasional #/hpf (0-3)
--- NOTE | 2023-11-02 14:02 | PC.NURSE ---
assisted pt to br. She tolerated very well.
== END 2023-11-02 15:32 | disposition home or self-care (01) ==
PROVIDERS: Emergency Provider Emergency Medicine; PCP Family Medicine
DX: R56.9 Unspecified convulsions (principal); E87.1 Hypo-osmolality and hyponatremia; R00.0 Tachycardia, unspecified; N39.0 Urinary tract infection, site not specified; R07.9 Chest pain, unspecified
CPT/HCPCS: 70450; 71045; 71275; 80053; 81001; 83735; 84484; 85025; 93005; 99285; Q9967

== ENCOUNTER 2023-12-12 08:05 | Observation (INO) | payer OTHER, SELFPAY ==
[2023-12-12] VITALS (11 sets, daily range): BP systolic 134–220; BP diastolic 69–151; PULSE 77–129; RESP 16–18; TEMP 36.6–37.2; O2SAT 95–98; BMI 31.2
--- NOTE | 2023-12-12 08:29 | ECG_ITS ---
APPROVED REPORT Exam: Resting ECG HR:112 bpm ECG Measurements Heart Rate 112 AXES GA 192 P 74 QRSd 77 QRS 92 QT 324 T 64 QTc 390 Conclusion SINUS TACHYCARDIA BORDERLINE RIGHT AXIS DEVIATION [QRS AXIS > 90] MINIMAL ST DEPRESSION [0.025+ mV ST DEPRESSION] ABNORMAL RHYTHM ECG UNCONFIRMED REPORT Electronically signed by : Josef Kingston, 12/12/2023 15:01:08
[2023-12-12 08:35] LABS: Microscopic, Urine URINE MICROSCOPIC (MICROSCOPIC)
--- NOTE | 2023-12-12 08:41 | ED_ITS ---
Discharge Plan Disposition Patient Disposition: Admitted Chief Complaint: Urogenital-Female Prescriptions Prescriptions: No Action clopidogrel 75 mg tablet 75 mg PO DAILY losartan-hydrochlorothiazide 100-12.5 mg tablet 1 tab PO DAILY Patient Comments: TAKE 1 TABLET BY MOUTH ONCE DAILY levothyroxine 75 mcg tablet 75 mcg PO DAILY atorvastatin 40 mg tablet 40 mg PO DAILY oxcarbazepine 300 mg tablet 300 mg PO BID Patient Comments: TAKE 1 TABLET BY MOUTH TWICE DAILY Atrovent HFA 17 mcg/actuation HFA aerosol inhaler 2 inh inhalation Q4H PRN fluticasone furoate-vilanterol [Breo Ellipta] 200-25 mcg/dose blister with device 1 inh inhalation DAILY Januvia 50 mg tablet 50 mg PO DAILY ascorbic acid (vitamin C) [Vitamin C With Freya Hips] 500 mg tablet 500 mg PO TID methenamine hippurate 1 gram tablet 1 g PO ONCE prasterone (dhea) 6.5 mg insert 1 insert vaginal HS isosorbide mononitrate 30 mg tablet extended release 24 hr 30 mg PO DAILY 90 Days Qty: 90 1RF cefdinir 300 mg capsule 300 mg PO BID 14 Days Qty: 28 0RF ondansetron HCl 4 mg tablet 4 mg PO Q6H PRN (Reason: nausea and vomiting) Qty: 10 0RF Saccharomyces boulardii [Florastor] 250 mg capsule 250 mg PO DAILY Qty: 30 0RF ciprofloxacin HCl 500 mg tablet 500 mg PO BID Qty: 20 0RF ondansetron HCl 4 mg tablet 4 mg PO Q8H PRN (Reason: nausea and vomiting) 4 Days Qty: 12 0RF phenazopyridine [Pyridium] 200 mg tablet 200 mg PO Q8H PRN (Reason: pain) Qty: 10 0RF Referrals Follow up/Referrals: Yaritza Cunningham APRN [Primary Care Provider] - See instructions Clinical Impressions Clinical Impression: Acute hyponatremia, Hypertension, Vaginal pain, Near syncope, Chronic cystitis Instructions Patient Instructions: DI for Urinary Tract Infection (UTI), DI for Urinary Tract Infection in Children Discharge ED Provider: Isela [facility] HPI General Chief complaint: Urogenital-Female Stated complaint: high blood pressure Time Seen by Provider: 12/12/23 08:30 Mode of Arrival: Wheelchair Source of Information: Patient Limitations: No Limitations Description of Symptoms (Recalled from ER Triage Doc. by RN): Patient reports 10/10 bladder pain that started x2 days ago. Patient reports the pain woke her up around 2am last night. Pt reports she has been battling bladder infections x2 years, being seen by a urologist in [place]. Patient also reports elevated BP and nausea due to the pain. Patient reports her vagina is also swollen from a cream she has been using. History of Present Illness HPI narrative: Patient is a 63-year-old female presented today with multiple complaints. First she states she woke up and felt very jittery and tingling all over and took her blood pressure and it was significantly elevated. She also states she has had chronic pelvic pain including chronic dysuria and urgency she is followed by urologist presumptively for possible interstitial cystitis. She is on multiple medications for this. However she states over the last 2 days she has increasing pressure in her vaginal area. Additionally she is on Premarin cream and states she has had increasing pain and swelling in her vaginal area that she believes is likely a yeast infection which she has experienced in the past. She has been self treating with Monistat without any significant improvement. Her vaginal complaints seem to be the primary reason why she is in Emergency Department today. No fevers chills nausea vomiting diarrhea or other complaints. Related Data Home Medications Medication Instructions Recorded Confirmed atorvastatin 40 mg tablet 40 mg PO DAILY 01/09/23 02/01/23 clopidogrel 75 mg tablet 75 mg PO DAILY 01/09/23 02/01/23 fluticasone furoate 200 1 inh inhalation DAILY 01/09/23 02/01/23 mcg-vilanterol 25 mcg/dose inhalation powder (Breo Ellipta) ipratropium bromide 17 2 inh inhalation Q4H PRN 01/09/23 02/01/23 mcg/actuation HFA aerosol inhaler (Atrovent HFA) levothyroxine 75 mcg tablet 75 mcg PO DAILY 01/09/23 02/01/23 losartan 100 1 tab PO DAILY 01/09/23 02/01/23 mg-hydrochlorothiazide 12.5 mg tablet oxcarbazepine 300 mg tablet 300 mg PO BID 01/09/23 02/01/23 sitagliptin phosphate 50 mg tablet 50 mg PO DAILY 01/09/23 02/01/23 (Januvia) ascorbic acid (vitamin C) 500 mg 500 mg PO TID 02/01/23 02/01/23 tablet (Vitamin C With Freya Hips) methenamine hippurate 1 gram tablet 1 g PO ONCE 02/01/23 02/01/23 prasterone (dhea) 6.5 mg vaginal 1 insert vaginal HS 02/01/23 02/01/23 insert Previous Rx's Medication Instructions Recorded Saccharomyces boulardii 250 mg 250 mg PO DAILY #30 caps 02/02/23 capsule (Florastor) cefdinir 300 mg capsule 300 mg PO BID 14 days #28 caps 02/02/23 ondansetron HCl 4 mg tablet 4 mg PO Q6H PRN nausea and 02/02/23 vomiting #10 tabs isosorbide mononitrate 30 mg 30 mg PO DAILY 90 days #90 tabs 04/10/23 tablet,extended release 24 hr ciprofloxacin HCl 500 mg tablet 500 mg PO BID #20 tabs 10/31/23 ondansetron HCl 4 mg tablet 4 mg PO Q8H PRN nausea and 10/31/23 vomiting 4 days #12 tabs phenazopyridine 200 mg tablet 200 mg PO Q8H PRN pain 6 doses #10 10/31/23 (Pyridium) tabs Allergies Allergy/AdvReac Type Severity Reaction Status Date / Time aspirin Allergy Severe Difficulty Verified 12/12/23 08:43 Breathing celery Allergy Severe Unknown Verified 12/12/23 08:45 allergy reaction nut - unspecified Allergy Severe Difficulty Verified 12/12/23 08:44 Breathing Sulfa (Sulfonamide Allergy Severe Difficulty Verified 12/12/23 08:43 Antibiotics) Swallowing budesonide [From Symbicort] Allergy Other Verified 02/02/23 08:04 formoterol [From Symbicort] Allergy Other Verified 02/02/23 08:04 metformin Allergy Chest Pain Verified 12/12/23 08:43 PFSH PFSH Disclaimer: The information contained in this section may have been updated after the patient was seen, as this information can be updated by other users. Medical History Stroke Surgical History H/O: hysterectomy has right ovary Family History Other Alcoholism Asthma Diabetes Hyperlipidemia Hypertension Stroke Thyroid disorder Social History Smoking Status: Never smoker alcohol intake: never current occupational status: retired Travel in the last 8 weeks: None ROS Obtained: Yes All systems reviewed & no additional complaints except as documented Physical Exam General General appearance: alert and in no apparent distress Respiratory Respiratory exam: Present normal lung sounds bilaterally; Absent respiratory distress Cardiovascular Cardiovascular exam: Present regular rate and normal rhythm Abdominal Exam Abdominal exam: Present soft; Absent distention or tenderness Neurological Exam Neurological exam: Present alert, oriented X3, CN II-XII intact and normal gait; Absent motor sensory deficit Medical Decision Making Edison Inquiry Pt receiving controlled substance: No Vital Signs: 12/12/23 08:19 12/12/23 09:05 Pulse Rate 114 H Pulse Rate [Right Brachial] 129 H Respiratory Rate 18 Blood Pressure 207/151 H Blood Pressure [Right Arm] 220/115 H Blood Pressure Mean 168 Blood Pressure Mean [Right Arm] 150 Blood Pressure Source [Right Arm] Automatic Cuff Blood Pressure Position [Right Arm] Sitting 02 Sat by Pulse Oximetry 97 95 Oxygen Delivery Method Room Air Lab Data Lab Results 12/12/23 08:20: Urine Color Yellow, Urine Appearance Clear, Urine pH 7.0, Ur Specific [place] 1.020, Urine Protein Trace, Urine Glucose (UA) Negative, Urine Ketones Negative, Urine Blood Negative, Urine Nitrate Negative, Urine Bilirubin Negative, Urine Urobilinogen 0.2, Ur Leukocyte Esterase Negative, Urine RBC None, Urine WBC Occasional, Ur Squamous Epith Cells Occasional, Urine Bacteria Trace 12/12/23 08:30: WBC 7.2, RBC 5.38, Hgb 15.7, Hct 46.6, MCV 86.7, MCH 29.2, MCHC 33.7, RDW 13.3, Plt Count 296, MPV 7.3 L, Neut % (Auto) 68.7, Lymph % (Auto) 24.0, [place] % (Auto) 6.0, Eos % (Auto) 0.4, Baso % (Auto) 0.9, Neut # (Auto) 4.9, Lymph # (Auto) 1.7, [place] # (Auto) 0.4, Eos # (Auto) 0.0, Baso # (Auto) 0.1, S odium 125 L, Potassium 4.3, Chloride 92 L, Carbon Dioxide 22, Anion Gap 15.3 H, BUN 11, Creatinine 0.60, Estimated Creat Clear 67, Estimated GFR 101, Est GFR ( Amer) 123, Glucose 164 H, Calcium 9.3, Total Bilirubin 0.3, AST 31, ALT 33, Alkaline Phosphatase 89, Troponin I < 0.01, Total Protein 8.5 H, Albumin 4.7, Globulin 3.8 H, Albumin/Globulin Ratio 1.2 12/12/23 08:30 12/12/23 08:30 Orders (Tests/Meds): ED MEDICATIONS Generic Name Dose Route Start Last Admin Trade Name Freq PRN Reason Stop Dose Admin Lactated Ringer's 1,000 mls @ 999 mls/hr 12/12/23 08:45 12/12/23 09:04 Lactated Ringer's 1000 Ml Bag IV 12/12/23 09:45 999 mls/hr .Q1H1M DOMINIC Administration Sodium Chloride 10 ml 12/12/23 08:32 Sodium Chloride 0.9% 10ml Flush Syringe IV 01/11/24 08:31 NEEDED PRN Maintain IV Site Discontinued Medications Generic Name Dose Route Start Last Admin Trade Name Freq PRN Reason Stop Dose Admin Ketorolac Tromethamine 15 mg 12/12/23 08:40 12/12/23 09:03 Ketorolac 30mg/Ml Vial IV 12/12/23 08:41 15 mg ONCE ONE Administration Sodium Chloride 10 ml 12/12/23 08:32 Sodium Chloride 0.9% 10ml Flush Syringe IV 01/11/24 08:31 NEEDED PRN Maintain IV Site ORDERS Category Date Time Status Complete Blood Count Auto Diff Stat Lab 12/12/23 08:30 Completed Comprehensive Metabolic Panel Stat Lab 12/12/23 08:30 Completed Trop I [Troponin I] Stat Lab 12/12/23 08:30 Completed Troponin I Q3H Lab 12/12/23 11:45 Ordered Troponin I Q3H Lab 12/12/23 14:45 Ordered Urinalysis and Microscopic Stat Lab 12/12/23 08:20 Completed ECG Data Tracing #1: I reviewed this ECG and interpreted as documented below: Ventricular rate of 112 sinus tachycardia no acute ischemic changes noted normal axis no significant conduction abnormality Medical Decision Narrative: Patient is a 63-year-old nontoxic-appearing female with multiple complaints today primarily with vaginal pain and vaginal discomfort and chronic cystitis symptoms. Will check a urinalysis and do a pelvic exam shortly. She believes she has a yeast infection DK wet prep have been ordered. Secondly she presents with hypotension and near syncope. EKG was unremarkable she has no clinical signs or symptoms of endorgan damage this is likely secondary to pain and anxiety and manifestation of underlying chronic hypertension. Will not acutely intervene on this at the moment. Exam was performed external genitalia appeared normal there was some scant white discharge which had to be normal and physiologic no significant inflammatory changes in the mucosa or in the soft tissue DK and wet prep were performed which were unremarkable. Incidentally patient was found to have severe hyponatremia with a sodium of 125 which presumptively is what is causing her symptoms. She is on oxcarbazepine which is likely the cause of this. Seems as if her sodium has been trending down since the last year she was in the mid 130s a year ago in October was 126 now is at 125. She will need to be admitted for this to be corrected likely will need to be stopped on that medication. Spoke to Dr. Tan who agreed to accept and admit the patient for further management and patient is agreeable to this plan. Critical Care Critical Care Time Critical Care Time: Yes Attestation: On 12/12/23, the high probability of a clinically significant, sudden or life threatening deterioration of the following system(s) required my full and direct attention, intervention and personal management. The time I documented below is in addition to time spent performing reported procedures but includes the following listed in this critical care notation. Total Time Total Critical Care Time: 35
[2023-12-12 08:46] LABS: Basophils # 0.1 K/mm3 (0-0.2); Basophils % 0.9 % (0.1-2.0); Eosinophils % 0.4 % (0.1-12.0); Hematocrit 46.6 % (37.0-47.0); Hemoglobin 15.7 g/dL (12.2-16.2); Lymphocytes # 1.7 K/mm3 (0.7-4.5); Mean Corpuscular HGB Conc 33.7 g/dL (31.8-35.4); Mean Corpuscular Hemoglobin 29.2 pg (27.0-31.2); Mean Corpuscular Volume 86.7 fl (81-99); Mean Platelet Volume 7.3 fl (7.4-10.4); Monocytes # 0.4 K/mm3 (0.1-1.0); Neutrophils # 4.9 K/mm3 (1.8-7.8); Neutrophils % 68.7 % (37.0-80.0); Platelet Count 296 K/mm3 (142-424); Red Blood Count 5.38 M/mm3 (4.20-5.40); Red Cell Distribution Width 13.3 % (11.5-17.5); White Blood Count 7.2 K/mm3 (4.8-10.8)
[2023-12-12 08:58] LABS: Chloride 92 mmol/L (98-107); Sodium 125 mmol/L (136-145)
[2023-12-12 08:58] LABS: Appearance,Urine CLEAR (Clear); Bilirubin,Urine Negative (Negative); Blood, Urine Negative (Negative); Color,Urine YELLOW (Yellow); Glucose,Urine (UA) Negative (Negative); Ketones,Urine Negative (Negative); Leukocyte Esterase,Urine Negative (Negative); Nitrate,Urine Negative (Negative); Protein,Urine TRACE (Negative); Urobilinogen,Urine 0.2 EU/dl (0.2)
[2023-12-12 08:59] LABS: Potassium 4.3 mmoL/L (3.5-5.1)
[2023-12-12 09:01] LABS: Alanine Aminotransferase 33 U/L (12-78); Albumin Level 4.7 g/dl (3.5-5.0); Albumin/Globulin Ratio 1.2 (1.1-1.8); Alkaline Phosphatase 89 U/L (38-126); Anion Gap 15.3 mEq/L (5-15); Aspartate Amino Transferase 31 U/L (14-36); Bilirubin,Total 0.3 mg/dl (0.2-1.3); Blood Urea Nitrogen 11 mg/dl (7-17); Carbon Dioxide 22 mmol/L (22.0-30.0); Creatinine Clearance Estimated 67 mL/min (50-200); Estimated Glomerular Filt Rate 101 ml/min (>60); GFR (African American) 123 ML/MIN (>60); Globulin 3.8 g/dL (1.3-3.2); Total Protein,Serum 8.5 g/dl (6.3-8.2)
[2023-12-12 09:02] LABS: Calcium 9.3 mg/dl (8.4-10.2); Glucose 164 mg/dl (74-100)
[2023-12-12] MEDS: KETOROLAC 30MG/ML VIAL 15 MG IV (09:03)
[2023-12-12] MEDS: LACTATED RINGERS 1000ML 1,000 ML 999 ML IV (09:04)
--- NOTE | 2023-12-12 09:09 | PC.NURSE ---
DR ALVARADO ATTEMPTED TO CONTACT DR GRAF
[2023-12-12 09:18] LABS: Troponin I < 0.01 ng/ml (0.00-0.034)
[2023-12-12 09:28] LABS: Bacteria,Urine Trace /lpf; Squamous Epithelial Cell,Urine Occasional #/hpf (0-5); WBC,Urine Occasional #/hpf (0-3)
--- NOTE | 2023-12-12 09:33 | PC.NURSE ---
dr zimmerman speaking with dr roberts
--- NOTE | 2023-12-12 09:36 | PC.NURSE ---
vat house laborer notified of admission
--- NOTE | 2023-12-12 09:45 | PC.NURSE ---
Attempted to call report. Nurse unaware she is getting a patient at this time.
--- NOTE | 2023-12-12 09:45 | HMH.PHAINT1 ---
Pharmacy Intervention Comments: MEDICATION RECONCILIATION COMPLETED ON PATIENT USING EXTERNAL FILL HISTORY FROM PHARMACY. -SONAL HICKMAN, PRAVIND
--- NOTE | 2023-12-12 09:56 | PC.NURSE ---
attempted to call report for the second time. no answer at this time.
--- NOTE | 2023-12-12 10:08 | PC.NURSE ---
Attempted to call report. Nurse in huddle with hospitalist at this time. Unable to take report.
--- NOTE | 2023-12-12 10:19 | PC.NURSE ---
late entry: ed attempted to call report, unaware of admission, unable to take at this time. pts last vs in ed 207/151 hr-114, notified charge nurse. 1020- took report from edison
--- NOTE | 2023-12-12 10:20 | PC.NURSE ---
report given to Kelvin Plasencia RN.
[2023-12-12] MEDS: 0.9 % SODIUM CHLORIDE 1000ML 1,000 ML 50 ML IV (11:57)
[2023-12-12] MEDS: HEPARIN SODIUM 5,000 UNIT/ML VIAL 5000 UNIT SQ ×2 (11:57→17:56)
[2023-12-12 13:03] LABS: Troponin I < 0.01 ng/ml (0.00-0.034)
[2023-12-12] MEDS: ONDANSETRON 4MG/2ML VIAL 4 MG IV (13:11)
[2023-12-12] MEDS: ACETAMINOPHEN 325MG TAB 650 MG PO (13:11)
--- NOTE | 2023-12-12 17:31 | P.HP_ITS ---
History of Present Illness *Admission Date: 12/12/23 *Reason for visit:: tremors *History of present illness: Patient is a 63-year-old female with past medical history of diabetes mellitus who presents to the hospital due to bladder pain. According the patient she has been feeling tremors, she has generalized tremors, she had further evaluation performed in the emergency department which did show hyponatremia. Patient denied nausea vomiting diarrhea constipation dysuria. [facility] Disclaimer: The information contained in this section may have been updated after the patient was seen, as this information can be updated by other users. Medical History (Updated 12/12/23 @ 11:37 by Bridgette Hawkins RN) Hypothyroid COPD (chronic obstructive pulmonary disease) Diabetes mellitus, type 2 Hyperlipidemia Hypertension Stroke Surgical History H/O: hysterectomy Family History Other Alcoholism Asthma Diabetes Hyperlipidemia Hypertension Stroke Thyroid disorder Social History (Updated 12/12/23 @ 11:37 by Bridgette Hawkins RN) Smoking Status: Never smoker alcohol intake: never current occupational status: retired Travel in the last 8 weeks: None Review of Systems Review of Systems Review of systems:: pertinent systems reviewed and negative unless documented below Meds Home Medications and Allergies Home Medications Medication Instructions Recorded Confirmed Type atorvastatin 40 mg tablet 40 mg PO DAILY 01/09/23 12/12/23 History clopidogrel 75 mg tablet 75 mg PO DAILY 01/09/23 12/12/23 History levothyroxine 75 mcg tablet 75 mcg PO DAILY 01/09/23 12/12/23 History losartan 100 1 tab PO DAILY 01/09/23 12/12/23 History mg-hydrochlorothiazide 12.5 mg tablet oxcarbazepine 300 mg tablet 300 mg PO BID 01/09/23 12/12/23 History sitagliptin phosphate 50 mg tablet 50 mg PO DAILY 01/09/23 12/12/23 History (Januvia) ascorbic acid (vitamin C) 500 mg 500 mg PO TID 02/01/23 12/12/23 History tablet (Vitamin C With Freya Hips) methenamine hippurate 1 gram tablet 0.5 g PO DAILY 02/01/23 12/12/23 History isosorbide mononitrate 30 mg 30 mg PO DAILY 90 days #90 tabs 04/10/23 12/12/23 Rx tablet,extended release 24 hr conjugated estrogens 0.625 mg/gram 0.625 mg vaginal DIRECTED 12/12/23 12/12/23 History vaginal cream (Premarin) oxybutynin chloride 15 mg 15 mg PO DAILY 12/12/23 12/12/23 History tablet,extended release 24 hr New Prescriptions to Start Prescriptions: Allergies Allergy/AdvReac Type Severity Reaction Status Date / Time aspirin Allergy Severe Difficulty Verified 12/12/23 11:29 Breathing celery Allergy Severe Unknown Verified 12/12/23 11:29 allergy reaction nut - unspecified Allergy Severe Difficulty Verified 12/12/23 11:29 Breathing Sulfa (Sulfonamide Allergy Severe Difficulty Verified 12/12/23 11:29 Antibiotics) Swallowing budesonide [From Symbicort] Allergy Other Verified 12/12/23 11:29 formoterol [From Symbicort] Allergy Other Verified 12/12/23 11:29 metformin Allergy Chest Pain Verified 12/12/23 11:29 Exam Data for Last 24 hours Vital signs and Labs for Last 24 Hours: Temp Pulse Resp BP Pulse Ox O2 Del Method 99 F 80 16 149/86 H 97 Room Air 12/12/23 15:53 12/12/23 16:00 12/12/23 15:53 12/12/23 15:53 12/12/23 15:53 12/12/23 17:00 Laboratory Results - last 24 hr 12/12/23 08:20: Urine Color Yellow, Urine Appearance Clear, Urine pH 7.0, Ur Specific [place] 1.020, Urine Protein Trace, Urine Glucose (UA) Negative, Urine Ketones Negative, Urine Blood Negative, Urine Nitrate Negative, Urine Bilirubin Negative, Urine Urobilinogen 0.2, Ur Leukocyte Esterase Negative, Urine RBC None, Urine WBC Occasional, Ur Squamous Epith Cells Occasional, Urine Bacteria Trace 12/12/23 08:30: WBC 7.2, RBC 5.38, Hgb 15.7, Hct 46.6, MCV 86.7, MCH 29.2, MCHC 33.7, RDW 13.3, Plt Count 296, MPV 7.3 L, Neut % (Auto) 68.7, Lymph % (Auto) 24.0, [place] % (Auto) 6.0, Eos % (Auto) 0.4, Baso % (Auto) 0.9, Neut # (Auto) 4.9, Lymph # (Auto) 1.7, [place] # (Auto) 0.4, Eos # (Auto) 0.0, Baso # (Auto) 0.1, Sodium 125 L, Potassium 4.3, Chloride 92 L, Carbon Dioxide 22, Anion Gap 15.3 H, BUN 11, Creatinine 0.60, Estimated Creat Clear 67, Estimated GFR 101, Est GFR ( Amer) 123, Glucose 164 H, Calcium 9.3, Total Bilirubin 0.3, AST 31, ALT 33, Alkaline Phosphatase 89, Troponin I < 0.01, Total Protein 8.5 H, Albumin 4.7, Globulin 3.8 H, Albumin/Globulin Ratio 1.2 12/12/23 12:20: Troponin I < 0.01 I & O for Last 24 hours: Intake & Output 12/09/23 12/10/23 12/11/23 12/12/23 23:59 23:59 23:59 23:59 Intake Total 1809 / 1809 Output Total 0 / 0 Balance 1809 / 1809 Weight 72.575 kg Microbiology Reports for the Last 24 Hours: Microbiology 12/12/23 09:05 Genital Wet Prep - Final 12/12/23 09:05 Genital DK Preparation - Final Constitutional Constitutional: no acute distress *Routine HEENT Exam Head: Present normocephalic Eye: Present EOMI and PERRL ENT: Present mucous membranes moist *Routine Neck Exam Neck: Present supple; Absent lymphadenopathy *Routine Respiratory Exam Respiratory: Present CTA bilaterally *Routine Cardiovascular Exam Cardiovascular: Present RRR *Routine Abdominal Exam Abdominal: Present soft and normoactive bowel sounds; Absent tenderness *Routine Rectal Exam Rectal:: deferred *Routine Genitalia Exam Genitalia:: deferred *Routine Extremities Exam Extremities: Absent cyanosis, clubbing or edema *Routine Skin Exam Skin: Present warm; Absent rash *Routine Neurological Exam Neurological: Present alert and oriented X3 Assessment and Plan *Assessment and plan (1) Acute hyponatremia: Status: Acute Category: Medical Code(s): E87.1 - Hypo-osmolality and hyponatremia (2) Near syncope: Status: Acute Category: Medical Code(s): R55 - Syncope and collapse (3) Hypertension: Status: Acute Category: Medical Code(s): I10 - Essential (primary) hypertension (4) Provoked seizure: Status: Acute Category: Medical Code(s): R56.9 - Unspecified convulsions (5) Diabetes 1.5, managed as type 2: Status: Acute Category: Medical Code(s): E13.9 - Other specified diabetes mellitus without complications (6) Hyperlipemia: Status: Acute Qualifiers: Hyperlipidemia type: pure hypercholesterolemia Qualified Code(s): E78.00 - Pure hypercholesterolemia, unspecified Category: Medical Code(s): E78.5 - Hyperlipidemia, unspecified (7) Hypertension: Status: Acute Qualifiers: Hypertension type: primary hypertension Qualified Code(s): I10 - Essential (primary) hypertension Category: Medical Code(s): I10 - Essential (primary) hypertension Plan Patient is a 63-year-old female with past medical history of diabetes mellitus who presents to the hospital due to bladder pain. According the patient she has been feeling tremors, she has generalized tremors, she had further evaluation performed in the emergency department which did show hyponatremia. Patient denied nausea vomiting diarrhea constipation dysuria. Assessment and plan Acute hyponatremia Start gentle fluid therapy with normal saline Hold diuretics Patient is also on oxcarbazepine which could be cause of euvolemic hyponatremia She had-not suggestive of UTI Diabetes mellitus Insulin sliding scale DVT prophylaxis- heparin
[2023-12-12] MEDS: OXcarbazepine 300MG TABLET 300 MG PO (21:10)
[2023-12-12] MEDS: ASCORBIC ACID 500MG TAB 500 MG PO (21:10)
[2023-12-12] MEDS: OXYBUTYNIN 5MG TAB 5 MG PO (21:10)
[2023-12-13] VITALS: BP 156/76; PULSE 84; PULSE 86; RESP 18; TEMP 36.7; O2SAT 95
[2023-12-13] MEDS: HEPARIN SODIUM 5,000 UNIT/ML VIAL 5000 UNIT SQ (00:45)
[2023-12-13 04:00] VITALS: BP 141/68; PULSE 64; PULSE 73; RESP 16; TEMP 36.7; O2SAT 97; BMI 32.2
--- NOTE | 2023-12-13 06:57 | PC.NURSE ---
Patient remains A/O x4. Patient voiced no c/o of pain throughout the night. Patient ambulates independently to bathroom to void with no issues. RA with O2 sats 95-98%. Bed in low position and call light within reach.
[2023-12-13 07:01] LABS: Basophils # 0.1 K/mm3 (0-0.2); Basophils % 1.1 % (0.1-2.0); Eosinophils # 0.1 K/mm3 (0.0-0.4); Eosinophils % 0.9 % (0.1-12.0); Hematocrit 42.7 % (37.0-47.0); Hemoglobin 14.2 g/dL (12.2-16.2); Lymphocytes # 1.9 K/mm3 (0.7-4.5); Mean Corpuscular HGB Conc 33.3 g/dL (31.8-35.4); Mean Corpuscular Hemoglobin 29.7 pg (27.0-31.2); Mean Platelet Volume 7.5 fl (7.4-10.4); Monocytes # 0.6 K/mm3 (0.1-1.0); Monocytes % 9.5 % (1.7-9.3); Neutrophils # 3.4 K/mm3 (1.8-7.8); Neutrophils % 57.6 % (37.0-80.0); Platelet Count 243 K/mm3 (142-424); Red Cell Distribution Width 13.5 % (11.5-17.5)
[2023-12-13 07:08] LABS: Chloride 98 mmol/L (98-107)
[2023-12-13 07:09] LABS: Potassium 3.6 mmoL/L (3.5-5.1); Sodium 131 mmol/L (136-145)
[2023-12-13 07:12] LABS: Anion Gap 11.6 mEq/L (5-15); Blood Urea Nitrogen 9 mg/dl (7-17); Calcium 9.1 mg/dl (8.4-10.2); Carbon Dioxide 25 mmol/L (22.0-30.0); Creatinine Clearance Estimated 69 mL/min (50-200); Estimated Glomerular Filt Rate 125 ml/min (>60); GFR (African American) 151 ML/MIN (>60); Glucose 103 mg/dl (74-100)
[2023-12-13 07:51] VITALS: BP 139/85; PULSE 75; RESP 18; TEMP 36.7; O2SAT 97
[2023-12-13 08:00] VITALS: PULSE 80
--- NOTE | 2023-12-13 08:54 | XR_ITS ---
FINAL REPORT CLINICAL HISTORY: PNA COMPARISON: 11/02/2023 FINDINGS: A single portable view of the chest was obtained. The heart size and pulmonary vascularity are within normal limits. The mediastinum is within normal limits. No acute pulmonary abnormality is identified. The bony thorax is intact. IMPRESSION: No active cardiopulmonary disease. Reviewed, Interpreted and Dictated by Rad Aguillon III, MD Transcribed by Darcie Malik Authenticated and . [facility]
--- NOTE | 2023-12-13 10:01 | P.DS_ITS ---
General Admission date:: 12/12/23 Discharge date: 12/13/23 HPI HPI HPI: Patient is a 63-year-old female with past medical history of diabetes mellitus who presents to the hospital due to bladder pain. According the patient she has been feeling tremors, she has generalized tremors, she had further evaluation performed in the emergency department which did show hyponatremia. Patient denied nausea vomiting diarrhea constipation dysuria. Hospital Course Hospital Course Hospital Course: Patient is a 63-year-old female with past medical history of diabetes mellitus who presents to the hospital due to bladder pain. According the patient she has been feeling tremors, she has generalized tremors, she had further evaluation performed in the emergency department which did show hyponatremia. Patient denied nausea vomiting diarrhea constipation dysuria. hyponatremia improved after fluid administration, patient recommended to hold diuretics for 2 days. Patient wishes to be discharged home On the date of discharge, the patient reported feeling stable. The patient was found not to be in any acute distress, and no new abnormalities on physical examination. Further, the patient expressed appropriate understanding of, and agreement with, the discharge recommendations, medications, and plan. Time spent 37 mins Exam Data for Last 24 hours Vital signs and Labs for Last 24 Hours: Temp Pulse Resp BP Pulse Ox O2 Del Method 98.0 F 80 18 139/85 97 Room Air 12/13/23 07:51 12/13/23 08:00 12/13/23 07:51 12/13/23 07:51 12/13/23 07:51 12/13/23 07:51 Laboratory Results - last 24 hr 12/12/23 12:20: Troponin I < 0.01 12/13/23 05:54: WBC 6.0, RBC 4.80, Hgb 14.2, Hct 42.7, MCV 89.0, MCH 29.7, MCHC 33.3, RDW 13.5, Plt Count 243, MPV 7.5, Neut % (Auto) 57.6, Lymph % (Auto) 31.0, Stevens % (Auto) 9.5 H, Eos % (Auto) 0.9, Baso % (Auto) 1.1, Neut # (Auto) 3.4, Lymph # (Auto) 1.9, Stevens # (Auto) 0.6, Eos # (Auto) 0.1, Baso # (Auto) 0.1, Sodium 131 L, Potassium 3.6, Chloride 98, Carbon Dioxide 25, Anion Gap 11.6, BUN 9, Creatinine 0.50 L, Estimated Creat Clear 69, Estimated GFR 125, Est GFR ( Amer) 151 D, Glucose 103 H D, Calcium 9.1 I & O for Last 24 hours: Intake & Output 12/10/23 12/11/23 12/12/23 12/13/23 23:59 23:59 23:59 23:59 Intake Total 2566 / 2973 677 / 677 Output Total 0 / 0 0 / 0 Balance 2566 / 2973 7 / 677 Weight 72.575 kg 74.525 kg Microbiology Reports for the Last 24 Hours: Microbiology 12/12/23 09:05 Genital Wet Prep - Final 12/12/23 09:05 Genital DK Preparation - Final Constitutional Constitutional: no acute distress *Routine HEENT Exam Head: Present normocephalic Eye: Present EOMI and PERRL ENT: Present mucous membranes moist *Routine Neck Exam Neck: Present supple; Absent lymphadenopathy *Routine Respiratory Exam Respiratory: Present CTA bilaterally *Routine Cardiovascular Exam Cardiovascular: Present RRR *Routine Abdominal Exam Abdominal: Present soft and normoactive bowel sounds; Absent tenderness *Routine Extremities Exam Extremities: Absent cyanosis, clubbing or edema *Routine Skin Exam Skin: Present warm; Absent rash *Routine Neurological Exam Neurological: Present alert and oriented X3 Results Data Completed and Pending Labs on day of discharge: Labs from last 24 hours 12/13/23 12/12/23 05:54 12:20 WBC 6.0 RBC 4.80 Hgb 14.2 Hct 42.7 MCV 89.0 MCH 29.7 MCHC 33.3 RDW 13.5 Plt Count 243 MPV 7.5 Neut % (Auto) 57.6 Lymph % (Auto) 31.0 Stevens % (Auto) 9.5 H Eos % (Auto) 0.9 Baso % (Auto) 1.1 Neut # (Auto) 3.4 Lymph # (Auto) 1.9 Stevens # (Auto) 0.6 Eos # (Auto) 0.1 Baso # (Auto) 0.1 Sodium 131 L Potassium 3.6 Chloride 98 Carbon Dioxide 25 Anion Gap 11.6 BUN 9 Creatinine 0.50 L Estimated Creat Clear 69 Estimated GFR 125 Est GFR ( Amer) 151 D Glucose 103 H D Calcium 9.1 Troponin I < 0.01 DS: Diagnosis Discharge Diagnosis (1) Acute hyponatremia: Status: Acute Code(s): E87.1 - Hypo-osmolality and hyponatremia (2) Near syncope: Status: Acute Code(s): R55 - Syncope and collapse (3) Hypertension: Status: Acute Code(s): I10 - Essential (primary) hypertension (4) Provoked seizure: Status: Acute Code(s): R56.9 - Unspecified convulsions (5) Diabetes 1.5, managed as type 2: Status: Acute Code(s): E13.9 - Other specified diabetes mellitus without complications (6) Hyperlipemia: Status: Acute Code(s): E78.5 - Hyperlipidemia, unspecified Qualifiers: Hyperlipidemia type: pure hypercholesterolemia Qualified Code(s): E78.00 - Pure hypercholesterolemia, unspecified Meds Home Medications and Allergies Home Medications Medication Instructions Recorded Confirmed Type atorvastatin 40 mg tablet 40 mg PO DAILY 01/09/23 12/12/23 History clopidogrel 75 mg tablet 75 mg PO DAILY 01/09/23 12/12/23 History levothyroxine 75 mcg tablet 75 mcg PO DAILY 01/09/23 12/12/23 History losartan 100 1 tab PO DAILY 01/09/23 12/12/23 History mg-hydrochlorothiazide 12.5 mg tablet oxcarbazepine 300 mg tablet 300 mg PO BID 01/09/23 12/12/23 History sitagliptin phosphate 50 mg tablet 50 mg PO DAILY 01/09/23 12/12/23 History (Januvia) ascorbic acid (vitamin C) 500 mg 500 mg PO TID 02/01/23 12/12/23 History tablet (Vitamin C With Freya Hips) methenamine hippurate 1 gram tablet 0.5 g PO DAILY 02/01/23 12/12/23 History isosorbide mononitrate 30 mg 30 mg PO DAILY 90 days #90 tabs 04/10/23 12/12/23 Rx tablet,extended release 24 hr conjugated estrogens 0.625 mg/gram 0.625 mg vaginal DIRECTED 12/12/23 12/12/23 History vaginal cream (Premarin) oxybutynin chloride 15 mg 15 mg PO DAILY 12/12/23 12/12/23 History tablet,extended release 24 hr New Prescriptions to Start Prescriptions: Allergies Allergy/AdvReac Type Severity Reaction Status Date / Time aspirin Allergy Severe Difficulty Verified 12/12/23 11:29 Breathing celery Allergy Severe Unknown Verified 12/12/23 11:29 allergy reaction nut - unspecified Allergy Severe Difficulty Verified 12/12/23 11:29 Breathing Sulfa (Sulfonamide Allergy Severe Difficulty Verified 12/12/23 11:29 Antibiotics) Swallowing budesonide [From Symbicort] Allergy Other Verified 12/12/23 11:29 formoterol [From Symbicort] Allergy Other Verified 12/12/23 11:29 metformin Allergy Chest Pain Verified 12/12/23 11:29 Discharge Plan Disposition Patient Disposition: Home, Self-Care Condition: Good Follow up Plan Follow up with: Yaritza Cunningham APRN [Primary Care Provider] - 12/20/23 9:30 am Prescriptions/Medication Reconciliation: Continued clopidogrel 75 mg tablet 75 mg PO DAILY levothyroxine 75 mcg tablet 75 mcg PO DAILY atorvastatin 40 mg tablet 40 mg PO DAILY oxcarbazepine 300 mg tablet 300 mg PO BID Patient Comments: TAKE 1 TABLET BY MOUTH TWICE DAILY Januvia 50 mg tablet 50 mg PO DAILY ascorbic acid (vitamin C) [Vitamin C With Freya Hips] 500 mg tablet 500 mg PO TID methenamine hippurate 1 gram tablet 0.5 g PO DAILY isosorbide mononitrate 30 mg tablet extended release 24 hr 30 mg PO DAILY 90 Days Qty: 90 1RF oxybutynin chloride 15 mg tablet extended release 24hr 15 mg PO DAILY Patient Comments: TAKE 1 TABLET BY MOUTH ONCE DAILY Premarin 0.625 mg/gram cream 0.625 mg vaginal DIRECTED Patient Comments: APPLY TO VAGINA 3 TIMES A WEEK Rx Instructions: Use 3 times a week Held losartan-hydrochlorothiazide 100-12.5 mg tablet 1 tab PO DAILY Hold Instructions: Resume on 12/15/23. Patient Comments: TAKE 1 TABLET BY MOUTH ONCE DAILY Problem Reconciliation Problems Reviewed?: Yes Patient Discharge Instructions ACTIVITY: Ambulate as tolerated DIET: continue same diet Patient Instructions: DI for Hyponatremia, DI for Acute Cystitis Providers Primary Care Provider: Yaritza Cunningham Admit Provider: Randall Tan Attending Provider: Randall Tan
--- NOTE | 2023-12-14 15:10 | CARE MANAGER ---
Called and spoke with patient regarding recent discharge. Patient states that she is still having some pressure in her bladder and I encouraged her to reach out to her PCP if it did not get better or if it got worse. She was aware of scheduled f/u appt and has stopped the medication that was held at discharge. No questions or concerns voiced at time of call.
== END 2023-12-13 10:38 | disposition home or self-care (01) ==
LOC: ER 09:36 → 2ND 09:46
PROVIDERS: Admitting Provider Internal Medicine; Emergency Provider Student in an Organized Health Care Education/Training Program; PCP Nurse Practitioner; Visit Provider Internal Medicine
DX: E87.1 Hypo-osmolality and hyponatremia (principal); I10 Essential (primary) hypertension; E11.9 Type 2 diabetes mellitus without complications; E78.00 Pure hypercholesterolemia, unspecified; Z79.899 Other long term (current) drug therapy; J44.9 Chronic obstructive pulmonary disease, unspecified; R55 Syncope and collapse; R56.9 Unspecified convulsions
CPT/HCPCS: 36415; 71045; 80048; 80053; 81001; 84484; 85025; 87210; 87220; 93005; 99291; G0378; J1644; J1885; J2405; J7120

== ENCOUNTER 2023-12-21 12:00 | Emergency (ER) | payer OTHER, SELFPAY ==
[2023-12-21] VITALS (15 sets, daily range): BP systolic 100–211; BP diastolic 60–128; PULSE 81–118; RESP 12–20; TEMP 36.7–36.9; O2SAT 94–98; BMI 31.2
--- NOTE | 2023-12-21 12:28 | ED_ITS ---
Discharge Plan Disposition Patient Disposition: Xfer Other Prescriptions Prescriptions: No Action clopidogrel 75 mg tablet 75 mg PO DAILY losartan-hydrochlorothiazide 100-12.5 mg tablet 1 tab PO DAILY Hold Instructions: Resume on 12/15/23. Patient Comments: TAKE 1 TABLET BY MOUTH ONCE DAILY levothyroxine 75 mcg tablet 75 mcg PO DAILY atorvastatin 40 mg tablet 40 mg PO DAILY oxcarbazepine 300 mg tablet 300 mg PO BID Patient Comments: TAKE 1 TABLET BY MOUTH TWICE DAILY Januvia 50 mg tablet 50 mg PO DAILY ascorbic acid (vitamin C) [Vitamin C With Freya Hips] 500 mg tablet 500 mg PO TID methenamine hippurate 1 gram tablet 0.5 g PO DAILY isosorbide mononitrate 30 mg tablet extended release 24 hr 30 mg PO DAILY 90 Days Qty: 90 1RF oxybutynin chloride 15 mg tablet extended release 24hr 15 mg PO DAILY Patient Comments: TAKE 1 TABLET BY MOUTH ONCE DAILY Premarin 0.625 mg/gram cream 0.625 mg vaginal DIRECTED Patient Comments: APPLY TO VAGINA 3 TIMES A WEEK Rx Instructions: Use 3 times a week Referrals Follow up/Referrals: Yaritza Cunningham APRN [Primary Care Provider] - See instructions Clinical Impressions Clinical Impression: Acute hyponatremia, UTI (urinary tract infection), Encephalopathy, Provoked seizure Discharge ED Provider: Rafael Guzman General Adult HPI <Rafael Guzman MD - Last Filed: 12/21/23 15:37> General Chief complaint: Nausea/Vomiting/Diarrhea Stated complaint: back pain nausea Time Seen by Provider: 12/21/23 12:04 Mode of Arrival: Wheelchair Source of Information: Patient and Spouse Limitations: No Limitations Description of Symptoms (Recalled from ER Triage Doc. by RN): n/v/d since this morning History of Present Illness HPI narrative: Patient is a 63-year-old female with past medical history of seizures on oxcarbazepine, chronic cystitis and abdominal pain, recent admission for hyponatremia who presents emergency department for evaluation of vomiting, diarrhea, lower abdominal pain. History is obtained by patient and family at bedside. For the last 2 weeks she has felt intermittent dizziness, the room does not spin in 1 direction or another. She has lower abdominal pain which is acute on chronic. She has chronic dysuria. Nonbloody vomiting and diarrhea. She had recent low sodium which required admission and responded to fluid administration and patient was recommended to hold diuretics for 2 days and was discharged home. Due to weakness, intermittent shaking, complaints described above she presents here for continued evaluation. Related Data Home Medications Medication Instructions Recorded Confirmed atorvastatin 40 mg tablet 40 mg PO DAILY 01/09/23 12/12/23 clopidogrel 75 mg tablet 75 mg PO DAILY 01/09/23 12/12/23 levothyroxine 75 mcg tablet 75 mcg PO DAILY 01/09/23 12/12/23 losartan 100 1 tab PO DAILY 01/09/23 12/12/23 mg-hydrochlorothiazide 12.5 mg tablet oxcarbazepine 300 mg tablet 300 mg PO BID 01/09/23 12/12/23 sitagliptin phosphate 50 mg tablet 50 mg PO DAILY 01/09/23 12/12/23 (Januvia) ascorbic acid (vitamin C) 500 mg 500 mg PO TID 02/01/23 12/12/23 tablet (Vitamin C With Freya Hips) methenamine hippurate 1 gram tablet 0.5 g PO DAILY 02/01/23 12/12/23 conjugated estrogens 0.625 mg/gram 0.625 mg vaginal DIRECTED 12/12/23 12/12/23 vaginal cream (Premarin) oxybutynin chloride 15 mg 15 mg PO DAILY 12/12/23 12/12/23 tablet,extended release 24 hr Previous Rx's Medication Instructions Recorded isosorbide mononitrate 30 mg 30 mg PO DAILY 90 days #90 tabs 04/10/23 tablet,extended release 24 hr Allergies Allergy/AdvReac Type Severity Reaction Status Date / Time aspirin Allergy Severe Difficulty Verified 12/12/23 11:29 Breathing celery Allergy Severe Unknown Verified 12/12/23 11:29 allergy reaction nut - unspecified Allergy Severe Difficulty Verified 12/12/23 11:29 Breathing Sulfa (Sulfonamide Allergy Severe Difficulty Verified 12/12/23 11:29 Antibiotics) Swallowing budesonide [From Symbicort] Allergy Other Verified 12/12/23 11:29 formoterol [From Symbicort] Allergy Other Verified 12/12/23 11:29 metformin Allergy Chest Pain Verified 12/12/23 11:29 [facility] <Rafael Guzman MD - Last Filed: 12/21/23 15:37> [facility] Disclaimer: The information contained in this section may have been updated after the patient was seen, as this information can be updated by other users. Medical History (Updated 12/21/23 @ 16:21 by Isela Kingston MD) Hypothyroid COPD (chronic obstructive pulmonary disease) Diabetes mellitus, type 2 Hyperlipidemia Hypertension Stroke Surgical History H/O: hysterectomy Family History Other Alcoholism Asthma Diabetes Hyperlipidemia Hypertension Stroke Thyroid disorder Social History (Updated 12/12/23 @ 11:37 by Bridgette Hawkins, RN) Smoking Status: Never smoker alcohol intake: never current occupational status: retired Travel in the last 8 weeks: None <Rafael Guzman MD - Last Filed: 12/21/23 15:37> ROS Obtained: Yes Systems reviewed as appropriate & no additional complaints except as documented Physical Exam <Rafael Guzman MD - Last Filed: 12/21/23 15:37> General General appearance: alert and other (Shaking globally) Head Head exam: atraumatic and normocephalic Eye Eye exam: Present PERRL and EOMI ENT ENT exam: Present mucous membranes moist Neck Neck exam: Present normal inspection Chest Chest inspection: Present normal inspection and symmetric chest wall rise Respiratory Respiratory exam: Present normal lung sounds bilaterally; Absent respiratory distress Cardiovascular Cardiovascular exam: Present regular rate and normal rhythm Abdominal Exam Abdominal exam: Present soft and tenderness (Bilateral lower quadrants and suprapubic area); Absent rebound or rigidity Extremities Exam Extremities exam: Present normal inspection Neurological Exam Neurological exam: Present alert, oriented X3 and CN II-XII intact; Absent motor sensory deficit Psychiatric Psychiatric exam: Present normal affect Skin Skin exam: Present warm and dry Medical Decision Making <Rafael Guzman MD - Last Filed: 12/21/23 15:37> [place] Inquiry Pt receiving controlled substance: No Vital Signs: 12/21/23 12:01 12/21/23 12:08 12/21/23 12:50 Temperature 98.3 F Temperature Source Oral Pulse Rate 110 H 98 H Pulse Rate [Right] 115 H Respiratory Rate 20 Blood Pressure 211/98 H 164/98 H Blood Pressure [Right Arm] 182/128 H Blood Pressure Mean 135 144 Blood Pressure Mean [Right Arm] 146 02 Sat by Pulse Oximetry 94 L 96 95 Oxygen Delivery Method Room Air Room Air 12/21/23 14:25 12/21/23 14:30 12/21/23 15:00 Temperature Temperature Source Pulse Rate 98 H 99 H 110 H Pulse Rate [Right] Respiratory Rate 18 Blood Pressure 149/83 H 157/87 H 161/87 H Blood Pressure [Right Arm] Blood Pressure Mean 105 110 102 Blood Pressure Mean [Right Arm] 02 Sat by Pulse Oximetry 95 94 L 95 Oxygen Delivery Method 12/21/23 15:16 Temperature Temperature Source Pulse Rate 118 H Pulse Rate [Right] Respiratory Rate 14 Blood Pressure 202/102 H Blood Pressure [Right Arm] Blood Pressure Mean 135 Blood Pressure Mean [Right Arm] 02 Sat by Pulse Oximetry 96 Oxygen Delivery Method Lab Data Lab Results 12/21/23 12:10: WBC 7.6, RBC 5.18, Hgb 15.2, Hct 44.4, MCV 85.7, MCH 29.4, MCHC 34.3, RDW 13.0, Plt Count 337, MPV 7.7, Neut % (Auto) 68.4, Lymph % (Auto) 22.5, [place] % (Auto) 8.0, Eos % (Auto) 0.3, Baso % (Auto) 0.7, Neut # (Auto) 5.2, Lymph # (Auto) 1.7, [place] # (Auto) 0.6, Eos # (Auto) 0.0, Baso # (Auto) 0.1, Sodium 118 L, Potassium 4.8, Chloride 84 L, Carbon Dioxide 23, Anion Gap 15.8 H, BUN 11, Creatinine 0.70, Estimated Creat Clear 67, Estimated GFR 85, Est GFR ( Amer) 103, Glucose 138 H, Calcium 9.6, Total Bilirubin 0.5, AST 36, ALT 35, Alkaline Phosphatase 77, Total Protein 8.7 H, Albumin 4.9, Globulin 3.8 H, Albumin/Globulin Ratio 1.3, Lipase 76, Acetone Level None detected 12/21/23 12:20: VBG pH 7.41, VBG pCO2 33.6 L, VBG pO2 35.9, VBG HCO3 20.7 L, VBG Total CO2 21.7 L, VBG O2 Saturation 72.8 H, VBG Base Excess -4.0 L, VBG Lactic Acid 3.3 H 12/21/23 12:47: Urine Color Buras, Urine Appearance Cloudy, Urine pH 7.5, Ur Specific [place] 1.010, Urine Protein Trace, Urine Glucose (UA) Trace, Urine Ketones Negative, Urine Blood Negative, Urine Nitrate Positive, Urine Bilirubin Negative, Urine Urobilinogen 1.0, Ur Leukocyte Esterase Negative, Urine RBC None, Urine WBC Occasional, Ur Squamous Epith Cells 5-10, Urine Bacteria 1+ 12/21/23 12:10 12/21/23 12:10 Orders (Tests/Meds): ED MEDICATIONS Generic Name Dose Route Start Last Admin Trade Name Freq PRN Reason Stop Dose Admin Sodium Chloride 500 mls @ 35.5 mls/hr 12/21/23 15:30 12/21/23 15:41 Sod Chloride 3% 500ml Bag (Hypertonic) IV 12/22/23 05:35 35.5 mls/hr .Q14H6M ONE Administration Discontinued Medications Generic Name Dose Route Start Last Admin Trade Name Freq PRN Reason Stop Dose Admin Lactated Ringer's 1,000 mls @ 999 mls/hr 12/21/23 12:20 12/21/23 12:43 Lactated Ringer's 1000 Ml Bag IV 12/21/23 13:20 999 mls/hr .Q1H1M ONE Administration Sodium Chloride 1,000 mls @ 999 mls/hr 12/21/23 13:55 12/21/23 14:26 Sod Chlor 0.9% 1000ml Bag IV 12/21/23 14:55 999 mls/hr .Q1H1M ONE Administration Iopamidol 100 ml 12/21/23 13:08 12/21/23 13:09 Iopamidol-370 (76%);100ml Bottle IV 12/21/23 13:09 100 ml ONCE ONE Administration Iopamidol 75 ml 12/21/23 13:10 12/21/23 13:11 Iopamidol-370 (76%);100ml Bottle IV 12/21/23 13:11 75 ml ONCE ONE Administration Ondansetron HCl 4 mg 12/21/23 12:55 12/21/23 13:00 Ondansetron 4mg/2ml Vial IV 12/21/23 12:56 4 mg ONCE ONE Administration Sodium Chloride 40 ml 12/21/23 13:08 12/21/23 13:09 0.9 % Sodium Chloride 50 Ml Vial IV 12/21/23 13:09 40 ml ONCE ONE Administration Sodium Chloride 10 ml 12/21/23 13:08 12/21/23 13:09 Sodium Chloride 0.9% 10ml Syr (Rad Only) IV 12/21/23 13:09 10 ml ONCE ONE Administration ORDERS Category Date Time Status CT abdomen pelvis w con Stat Cat Scan 12/21/23 12:[address] angio head Stat Cat Scan 12/21/23 12:[address] angio neck Stat Cat Scan 12/21/23 12:[address] head/brain wo con Stat Cat Scan 12/21/23 12:50 Taken Acetone, Serum (Rapid) Stat Lab 12/21/23 12:10 Completed CBC w/Auto Diff [Complete Blood Count Auto Diff] Stat Lab 12/21/23 12:10 Completed CMP [Comprehensive Metabolic Panel] Stat Lab 12/21/23 12:10 Completed Lipase Stat Lab 12/21/23 12:10 Completed UA [Urinalysis and Microscopic] Stat Lab 12/21/23 12:47 Completed VBG [Venous Blood Gas] Stat RT 12/21/23 12:20 Completed Medical Decision Narrative: In summary patient is a 63-year-old female past medical history described above who presents emergency department for evaluation of nausea, vomiting, diarrhea, shaking, dizziness, chronic dysuria, lower abdominal pain. Patient is hemodynamically stable nontoxic-appearing upon arrival, afebrile. With respect to shaking and dizziness differential includes hyponatremia, CVA, among others. With respect abdominal pain differential includes chronic cystitis, colitis, urinary tract infection, among others. Workup will be conducted with hematologic labs, noncontrasted CT scan of the head, CTA of the head and neck, CT abdomen pelvis IV contrast, urinalysis. Initial inventions include crystalloid bolus, Zofran. While patient was in CT scanner rapid response was called and I responded at approximately 1:20 PM where patient became short of breath, tachycardic after contrast administration. Patient does not have wheezing, does not have rash, does not have hypotension. No concern for anaphylaxis therefore epinephrine will be deferred. Patient may just have dyspnea secondary to the contrast however I do not think any emergent pathology secondary to contrast is happening. Initial workup reviewed by me, no significant leukocytosis, compensated acid-base status, severe hyponatremia for which an additional liter of normal saline will be administered. Given the osmolality of lactated Ringer's 1 L and normal saline 1 L I do not feel that this will rapidly overcorrect her. Urinalysis is nitrite positive however largely otherwise not consistent with urinary tract infection. Upon repeat evaluation to ask if patient was taking Azo for which it would be nitrite positive and erroneous patient had an episode of unresponsiveness with her environment that lasted approximately 30 seconds initially refractory to sternal rub. Although she has a seizure disorder she does have severe hyponatremia for which hypertonic saline will be administered and a normal saline bolus will be discontinued. 1 g ceftriaxone will be administered for equivocal urinary tract infection. Formal CT reads pending at time of transfer of care to the oncoming physician, Dr. Kingston. Patient will likely require transfer to higher level of care given multifactorial severe hyponatremia. <Isela Kingston MD - Last Filed: 12/21/23 16:21> Vital Signs: 12/21/23 12:01 12/21/23 12:08 12/21/23 12:50 Temperature 98.3 F Temperature Source Oral Pulse Rate 110 H 98 H Pulse Rate [Right] 115 H Respiratory Rate 20 Blood Pressure 211/98 H 164/98 H Blood Pressure [Right Arm] 182/128 H Blood Pressure Mean 135 144 Blood Pressure Mean [Right Arm] 146 02 Sat by Pulse Oximetry 94 L 96 95 Oxygen Delivery Method Room Air Room Air 12/21/23 14:25 12/21/23 14:30 12/21/23 15:00 Temperature Temperature Source Pulse Rate 98 H 99 H 110 H Pulse Rate [Right] Respiratory Rate 18 Blood Pressure 149/83 H 157/87 H 161/87 H Blood Pressure [Right Arm] Blood Pressure Mean 105 110 102 Blood Pressure Mean [Right Arm] 02 Sat by Pulse Oximetry 95 94 L 95 Oxygen Delivery Method 12/21/23 15:16 Temperature Temperature Source Pulse Rate 118 H Pulse Rate [Right] Respiratory Rate 14 Blood Pressure 202/102 H Blood Pressure [Right Arm] Blood Pressure Mean 135 Blood Pressure Mean [Right Arm] 02 Sat by Pulse Oximetry 96 Oxygen Delivery Method Lab Data Lab results reviewed: Yes I reviewed the patient's lab results. Lab Results 12/21/23 12:10: WBC 7.6, RBC 5.18, Hgb 15.2, Hct 44.4, MCV 85.7, MCH 29.4, MCHC 34.3, RDW 13.0, Plt Count 337, MPV 7.7, Neut % (Auto) 68.4, Lymph % (Auto) 22.5, [place] % (Auto) 8.0, Eos % (Auto) 0.3, Baso % (Auto) 0.7, Neut # (Auto) 5.2, Lymph # (Auto) 1.7, [place] # (Auto) 0.6, Eos # (Auto) 0.0, Baso # (Auto) 0.1, Sodium 118 L, Potassium 4.8, Chloride 84 L, Carbon Dioxide 23, Anion Gap 15.8 H, BUN 11, Creatinine 0.70, Estimated Creat Clear 67, Estimated GFR 85, Est GFR ( Amer) 103, Glucose 138 H, Calcium 9.6, Total Bilirubin 0.5, AST 36, ALT 35, Alkaline Phosphatase 77, Total Protein 8.7 H, Albumin 4.9, Globulin 3.8 H, Albumin/Globulin Ratio 1.3, Lipase 76, Acetone Level None detected 12/21/23 12:20: VBG pH 7.41, VBG pCO2 33.6 L, VBG pO2 35.9, VBG HCO3 20.7 L, VBG Total CO2 21.7 L, VBG O2 Saturation 72.8 H, VBG Base Excess -4.0 L, VBG Lactic Acid 3.3 H 12/21/23 12:47: Urine Color [place], Urine Appearance Cloudy, Urine pH 7.5, Ur Specific [place] 1.010, Urine Protein Trace, Urine Glucose (UA) Trace, Urine Ketones Negative, Urine Blood Negative, Urine Nitrate Positive, Urine Bilirubin Negative, Urine Urobilinogen 1.0, Ur Leukocyte Esterase Negative, Urine RBC None, Urine WBC Occasional, Ur Squamous Epith Cells 5-10, Urine Bacteria 1+ Orders (Tests/Meds): ED MEDICATIONS Generic Name Dose Route Start Last Admin Trade Name Freq PRN Reason Stop Dose Admin Sodium Chloride 500 mls @ 35.5 mls/hr 12/21/23 15:30 12/21/23 15:41 Sod Chloride 3% 500ml Bag (Hypertonic) IV 12/22/23 05:35 35.5 mls/hr .Q14H6M ONE Administration Discontinued Medications Generic Name Dose Route Start Last Admin Trade Name Freq PRN Reason Stop Dose Admin Lactated Ringer's 1,000 mls @ 999 mls/hr 12/21/23 12:20 12/21/23 12:43 Lactated Ringer's 1000 Ml Bag IV 12/21/23 13:20 999 mls/hr .Q1H1M ONE Administration Sodium Chloride 1,000 mls @ 999 mls/hr 12/21/23 13:55 12/21/23 14:26 Sod Chlor 0.9% 1000ml Bag IV 12/21/23 14:55 999 mls/hr .Q1H1M ONE Administration Iopamidol 100 ml 12/21/23 13:08 12/21/23 13:09 Iopamidol-370 (76%);100ml Bottle IV 12/21/23 13:09 100 ml ONCE ONE Administration Iopamidol 75 ml 12/21/23 13:10 12/21/23 13:11 Iopamidol-370 (76%);100ml Bottle IV 12/21/23 13:11 75 ml ONCE ONE Administration Ondansetron HCl 4 mg 12/21/23 12:55 12/21/23 13:00 Ondansetron 4mg/2ml Vial IV 12/21/23 12:56 4 mg ONCE ONE Administration Sodium Chloride 40 ml 12/21/23 13:08 12/21/23 13:09 0.9 % Sodium Chloride 50 Ml Vial IV 12/21/23 13:09 40 ml ONCE ONE Administration Sodium Chloride 10 ml 12/21/23 13:08 12/21/23 13:09 Sodium Chloride 0.9% 10ml Syr (Rad Only) IV 12/21/23 13:09 10 ml ONCE ONE Administration ORDERS Category Date Time Status CT abdomen pelvis w con Stat Cat Scan 12/21/23 12:[address] angio head Stat Cat Scan 12/21/23 12:[address] angio neck Stat Cat Scan 12/21/23 12:[address] head/brain wo con Stat Cat Scan 12/21/23 12:50 Taken Acetone, Serum (Rapid) Stat Lab 12/21/23 12:10 Completed CBC w/Auto Diff [Complete Blood Count Auto Diff] Stat Lab 12/21/23 12:10 Completed CMP [Comprehensive Metabolic Panel] Stat Lab 12/21/23 12:10 Completed Lipase Stat Lab 12/21/23 12:10 Completed UA [Urinalysis and Microscopic] Stat Lab 12/21/23 12:47 Completed VBG [Venous Blood Gas] Stat RT 12/21/23 12:20 Completed Medical Decision Narrative: In summary patient is a 63-year-old female past medical history described above who presents emergency department for evaluation of nausea, vomiting, diarrhea, shaking, dizziness, chronic dysuria, lower abdominal pain. Patient is hemodynamically stable nontoxic-appearing upon arrival, afebrile. With respect to shaking and dizziness differential includes hyponatremia, CVA, among others. With respect abdominal pain differential includes chronic cystitis, colitis, urinary tract infection, among others. Workup will be conducted with hematologic labs, noncontrasted CT scan of the head, CTA of the head and neck, CT abdomen pelvis IV contrast, urinalysis. Initial inventions include crystalloid bolus, Zofran. While patient was in CT scanner rapid response was called and I responded at approximately 1:20 PM where patient became short of breath, tachycardic after contrast administration. Patient does not have wheezing, does not have rash, does not have hypotension. No concern for anaphylaxis therefore epinephrine will be deferred. Patient may just have dyspnea secondary to the contrast however I do not think any emergent pathology secondary to contrast is happening. Initial workup reviewed by me, no significant leukocytosis, compensated acid-base status, severe hyponatremia for which an additional liter of normal saline will be administered. Given the osmolality of lactated Ringer's 1 L and normal saline 1 L I do not feel that this will rapidly overcorrect her. Urinalysis is nitrite positive however largely otherwise not consistent with urinary tract infection. Upon repeat evaluation to ask if patient was taking Azo for which it would be nitrite positive and erroneous patient had an episode of unresponsiveness with her environment that lasted approximately 30 seconds initially refractory to sternal rub. Although she has a seizure disorder she does have severe hyponatremia for which hypertonic saline will be administered and a normal saline bolus will be discontinued. 1 g ceftriaxone will be administered for equivocal urinary tract infection. Formal CT reads pending at time of transfer of care to the oncoming physician, Dr. Kingston. Patient will likely require transfer to higher level of care given multifactorial severe hyponatremia. Reassessment this is Dr. Kingston I took over from Dr. Guzman. Scans performed which I personally interpreted and also with radiology read no acute abnormalities noted on them. Patient on my reassessment is a GCS of 15 with a normal neurologic exam but is still getting hypertonic saline given her recurrent seizures. I actually admitted her last week when she had a sodium of 126 her oxcarbazepine was never discontinued and she was told to stop her diuretics. Given the fact that she is going to have to be seen by a neurologist to tailor her antiepileptic medications if the oxcarbazepine is the cause she will need to be transferred where there is inpatient neurology. I spoke with our hospital medicine doctor here who also agreed with that plan. I subsequently spoke with Dr. Clinton at [facility] ICU who accepted the patient to their ICU particular given the ongoing hypertonic saline needs. Critical Care <Rafael Guzman MD - Last Filed: 12/21/23 15:37> Critical Care Time Critical Care Time: Yes Attestation: On 12/21/23, the high probability of a clinically significant, sudden or life threatening deterioration of the following system(s) required my full and direct attention, intervention and personal management. The time I documented below is in addition to time spent performing reported procedures but includes the following listed in this critical care notation. Total Time Total Critical Care Time: 45 <Isela Kingston MD - Last Filed: 12/21/23 16:21> Total Time Total Critical Care Time: 65
--- NOTE | 2023-12-21 12:29 | PC.NURSE ---
RESPIRATORY NOTIFIED OF VBG
[2023-12-21 12:33] LABS: Basophils # 0.1 K/mm3 (0-0.2); Basophils % 0.7 % (0.1-2.0); Eosinophils % 0.3 % (0.1-12.0); Hematocrit 44.4 % (37.0-47.0); Hemoglobin 15.2 g/dL (12.2-16.2); Lymphocytes # 1.7 K/mm3 (0.7-4.5); Lymphocytes % 22.5 % (10-50); Mean Corpuscular HGB Conc 34.3 g/dL (31.8-35.4); Mean Corpuscular Hemoglobin 29.4 pg (27.0-31.2); Mean Corpuscular Volume 85.7 fl (81-99); Mean Platelet Volume 7.7 fl (7.4-10.4); Monocytes # 0.6 K/mm3 (0.1-1.0); Neutrophils # 5.2 K/mm3 (1.8-7.8); Neutrophils % 68.4 % (37.0-80.0); Platelet Count 337 K/mm3 (142-424); Red Blood Count 5.18 M/mm3 (4.20-5.40); White Blood Count 7.6 K/mm3 (4.8-10.8)
[2023-12-21 12:35] LABS: Chloride 84 mmol/L (98-107); Potassium 4.8 mmoL/L (3.5-5.1); Sodium 118 mmol/L (136-145)
[2023-12-21 12:36] LABS: Acetone, Serum (Rapid) None Detected (None Detect)
[2023-12-21 12:37] LABS: Alanine Aminotransferase 35 U/L (12-78); Aspartate Amino Transferase 36 U/L (14-36); Blood Urea Nitrogen 11 mg/dl (7-17); Creatinine Clearance Estimated 67 mL/min (50-200); Estimated Glomerular Filt Rate 85 ml/min (>60); GFR (African American) 103 ML/MIN (>60)
[2023-12-21 12:38] LABS: Albumin Level 4.9 g/dl (3.5-5.0); Albumin/Globulin Ratio 1.3 (1.1-1.8); Alkaline Phosphatase 77 U/L (38-126); Anion Gap 15.8 mEq/L (5-15); Bilirubin,Total 0.5 mg/dl (0.2-1.3); Calcium 9.6 mg/dl (8.4-10.2); Carbon Dioxide 23 mmol/L (22.0-30.0); Globulin 3.8 g/dL (1.3-3.2); Glucose 138 mg/dl (74-100); Lipase 76 U/L (23-300); Total Protein,Serum 8.7 g/dl (6.3-8.2)
[2023-12-21 12:38] LABS: VBG HCO3 20.7 mmol/L (23-30); VBG Oxygen Saturation 72.8 % (50-70); VBG PCO2 33.6 mmol/L (35-51); VBG PH 7.41 mmol/L (7.31-7.41); VBG PO2 35.9 mmol/L (28-40); VBG Total CO2 21.7 mmol/L (23-27)
[2023-12-21 12:40] LABS: Lactate Venous 3.3 mmol/L (0.4-2.0)
[2023-12-21] MEDS: LACTATED RINGERS 1000ML 1,000 ML 999 ML IV (12:43)
[2023-12-21 12:50] LABS: Microscopic, Urine URINE MICROSCOPIC (MICROSCOPIC)
--- NOTE | 2023-12-21 12:50 | CT_ITS ---
FINAL REPORT CLINICAL HISTORY: dizzy FINDINGS: CTA NECK Thin section axial CT with contrast with multiplanar reconstruction NASCET criteria and technique was utilized during interpretation. Aortic arch: Arch shows no significant narrowing. Great vessel origins are widely patent . Right carotid: 70% stenosis at the right ICA origin. Left carotid: 40% proximal left ICA stenosis.. Vertebrals: Right vertebral artery is dominant. No significant stenosis is present . IMPRESSION: 70% stenosis at the right ICA origin. 40% proximal left ICA stenosis. Reviewed, Interpreted and Dictated by Adilson Gerber MD Transcribed by Lo Potter Authenticated and [facility]
--- NOTE | 2023-12-21 12:50 | CT_ITS ---
FINAL REPORT TECHNIQUE: Noncontrast exam CLINICAL HISTORY: dizzy FINDINGS: No abnormal density is seen. Ventricles are normal. There is no hemorrhage. No mass effect is seen. Bone windows show no evidence of fracture. IMPRESSION: No acute findings Reviewed, Interpreted and Dictated by Adilson Gerber MD Transcribed by Lo Potter Authenticated and [facility]
--- NOTE | 2023-12-21 12:50 | CT_ITS ---
FINAL REPORT CLINICAL HISTORY: dizzy FINDINGS: CTA HEAD TECHNIQUE: Thin section axial CT with contrast with 3D MIP reconstruction FINDINGS: No aneurysm is seen. Major intracranial vessels are patent without significant stenosis. . IMPRESSION: Unremarkable This study was performed using automated techniques to achieve radiation exposure as low as reasonably achievable Reviewed, Interpreted and Dictated by Adilson Gerber MD Transcribed by Lo Potter Authenticated and . [facility]
--- NOTE | 2023-12-21 12:51 | CT_ITS ---
FINAL REPORT TECHNIQUE: After the administration of IV contrast, axial images through the abdomen and pelvis was performed by computed tomography. Oral contrast was given. Sagittal and coronal reformatted images were obtained and reviewed. This study was performed with techniques to keep radiation doses as low as reasonably achievable (ALARA). Individualized dose reduction techniques using automated exposure control or adjustment of mA and/or kV according to the patient's size were employed. CLINICAL HISTORY: lower abd pain COMPARISON: 10/31/2023 FINDINGS: Abdomen: No acute density is seen within the lung bases. The gallbladder is unremarkable. Solid abdominal organs are unremarkable. There are dystrophic calcifications in the subcutaneous tissues of the flank regions which could be due to old hematomas or fat necrosis. No bowel obstruction is present. There is no free air. No fluid collection is seen. There is no adenopathy. Pelvis: The appendix is not visualized. Patient is status post hysterectomy. No bowel wall thickening is present. There is no free fluid. No pelvic mass is seen. IMPRESSION: No acute process. Reviewed, Interpreted and Dictated by Adilson Gerber MD Transcribed by Maame Huang Authenticated and [facility]
[2023-12-21 12:59] LABS: Appearance,Urine CLOUDY (Clear); Bilirubin,Urine Negative (Negative); Blood, Urine Negative (Negative); Color,Urine ORANGE (Yellow); Glucose,Urine (UA) TRACE (Negative); Ketones,Urine Negative (Negative); Leukocyte Esterase,Urine Negative (Negative); Nitrate,Urine POSITIVE (Negative); PH,Urine 7.5 (5.0-8.5); Protein,Urine TRACE (Negative)
--- NOTE | 2023-12-21 12:59 | PC.NURSE ---
PT TO CT
[2023-12-21] MEDS: ONDANSETRON 4MG/2ML VIAL 4 MG IV (13:00)
[2023-12-21] MEDS: IOPAMIDOL-370 (76%);100ML BOTTLE 100 ML IV (13:09)
[2023-12-21] MEDS: SODIUM CHLORIDE 0.9% 10ML SYR (RAD ONLY) 10 ML IV (13:09)
[2023-12-21] MEDS: 0.9 % SODIUM CHLORIDE 50 ML VIAL 40 ML IV (13:09)
[2023-12-21] MEDS: IOPAMIDOL-370 (76%);100ML BOTTLE 75 ML IV (13:11)
[2023-12-21 13:13] LABS: Bacteria,Urine 1+ /lpf; WBC,Urine Occasional #/hpf (0-3)
--- NOTE | 2023-12-21 13:20 | ECG_ITS ---
APPROVED REPORT Exam: Resting ECG HR:120 bpm ECG Measurements Heart Rate 120 AXES MN 174 P 68 QRSd 77 QRS 84 QT 347 T 63 QTc 418 Conclusion SINUS TACHYCARDIA NONSPECIFIC T-WAVE ABNORMALITY ABNORMAL RHYTHM ECG UNCONFIRMED REPORT Electronically signed by : TRAVIS LECHUGA, 12/24/2023 06:20:47
--- NOTE | 2023-12-21 13:27 | PC.NURSE ---
PT RETURNED FROM CT
[2023-12-21] MEDS: 0.9 % SODIUM CHLORIDE 1000ML 1,000 ML 999 ML IV (14:26)
[2023-12-21] MEDS: SODIUM CHLORIDE 3 % 500 ML 35.5 ML IV (15:41)
--- NOTE | 2023-12-21 15:45 | PC.NURSE ---
Patient assisted onto the bed bailon.
--- NOTE | 2023-12-21 16:09 | PC.NURSE ---
CALL PLACED WITH GNOSTICIST FOR TRANSFER, AWAITING CALL BACK FROM DR LOONEY
--- NOTE | 2023-12-21 16:15 | PC.NURSE ---
Dr. Kingston speaking with [facility].
--- NOTE | 2023-12-21 16:32 | PC.NURSE ---
pt asked to use bedpan; assisted patient and she was unable to go at this time
[2023-12-21 16:41] LABS: Reflex Lactic Add Lactic Reflex
--- NOTE | 2023-12-21 16:54 | PC.NURSE ---
called report to mimi armendariz. nurse states pt is going to room 211 [facility].
[2023-12-21 17:22] LABS: Sodium 129 mmol/L (136-145)
--- NOTE | 2023-12-21 17:24 | PC.NURSE ---
PT ASSISTED TO [facility]
[2023-12-21] MEDS: levETIRAcetam 2,000 MG in 0.9 % SODIUM CHLORIDE 100 ML 240 MG IV (19:22)
--- NOTE | 2023-12-21 19:23 | PC.NURSE ---
At approx 1917 pt's family called out concerned that she was seizing. This RN and Heidi Arzate entered room 2 where pt was unresponsive and had a fixated gaze. This lasted for approx 45 sesconds to 1 minute. Pt was able to answer this RN and state that she was not in pain and was feeling dizzy. Heidi Arzate grabbed provider and Dr. Kingston was bedside. Provider ordered medication and this RN and Heidi Arzate started Keppra. Pt is communicating now and family continues to be bedside.
--- NOTE | 2023-12-21 19:24 | PC.NURSE ---
Sitting at the nurses station by the phone to answer call light RM 2 activated there call light and I answered family stated that she was having a seizure and this was approx 1916.
--- NOTE | 2023-12-21 19:29 | PC.NURSE ---
[facility] they were notified our transfer trucks were out on 911 calls
--- NOTE | 2023-12-21 19:39 | PC.NURSE ---
[facility] here at current time for transfer
== END 2023-12-21 19:47 | disposition other institution (70) ==
PROVIDERS: Student in an Organized Health Care Education/Training Program; Emergency Provider Emergency Medicine; PCP Nurse Practitioner
DX: E87.1 Hypo-osmolality and hyponatremia (principal); G93.41 Metabolic encephalopathy; R56.9 Unspecified convulsions; N39.0 Urinary tract infection, site not specified; R10.30 Lower abdominal pain, unspecified; R30.0 Dysuria; R00.0 Tachycardia, unspecified; R11.2 Nausea with vomiting, unspecified; R42 Dizziness and giddiness; R25.1 Tremor, unspecified; J44.9 Chronic obstructive pulmonary disease, unspecified; E03.9 Hypothyroidism, unspecified; E11.9 Type 2 diabetes mellitus without complications; E78.5 Hyperlipidemia, unspecified; I10 Essential (primary) hypertension; Z79.84 Long term (current) use of oral hypoglycemic drugs
CPT/HCPCS: 70450; 70496; 70498; 74177; 80053; 81001; 82009; 82803; 83690; 84295; 85025; 93005; 96361; 96365; 96366; 96375; 99291; 99292; J1953; J2405; J7120; Q9967

== ENCOUNTER 2023-12-26 11:23 | Emergency (ER) | payer OTHER, SELFPAY ==
[2023-12-26] VITALS (8 sets, daily range): BP systolic 123–168; BP diastolic 60–90; PULSE 85–122; RESP 12–23; TEMP 36.9; O2SAT 95–98; BMI 28.3
--- NOTE | 2023-12-26 | ECG_ITS ---
APPROVED REPORT Exam: Resting ECG HR:127 bpm ECG Measurements Heart Rate 127 AXES MT 170 P 59 QRSd 60 QRS 75 QT 292 T 57 QTc 367 Conclusion SINUS TACHYCARDIA ABNORMAL RHYTHM ECG Electronically signed by : MCKINLEY NINO, 12/27/2023 21:49:42
--- NOTE | 2023-12-26 11:27 | ED_ITS ---
Discharge Plan Disposition Patient Disposition: Home, Self-Care Condition: Good Prescriptions Prescriptions: New promethazine 12.5 mg tablet 12.5 mg PO TID PRN (Reason: allergy symptoms) Qty: 12 0RF Rx Instructions: 3 doses during day; last dose no later than 4 hr before bedtime No Action clopidogrel 75 mg tablet 75 mg PO DAILY losartan-hydrochlorothiazide 100-12.5 mg tablet 1 tab PO DAILY Hold Instructions: Resume on 12/15/23. Patient Comments: TAKE 1 TABLET BY MOUTH ONCE DAILY levothyroxine 75 mcg tablet 75 mcg PO DAILY atorvastatin 40 mg tablet 40 mg PO DAILY oxcarbazepine 300 mg tablet 300 mg PO BID Patient Comments: TAKE 1 TABLET BY MOUTH TWICE DAILY Januvia 50 mg tablet 50 mg PO DAILY ascorbic acid (vitamin C) [Vitamin C With Freya Hips] 500 mg tablet 500 mg PO TID methenamine hippurate 1 gram tablet 0.5 g PO DAILY isosorbide mononitrate 30 mg tablet extended release 24 hr 30 mg PO DAILY 90 Days Qty: 90 1RF oxybutynin chloride 15 mg tablet extended release 24hr 15 mg PO DAILY Patient Comments: TAKE 1 TABLET BY MOUTH ONCE DAILY Premarin 0.625 mg/gram cream 0.625 mg vaginal DIRECTED Patient Comments: APPLY TO VAGINA 3 TIMES A WEEK Rx Instructions: Use 3 times a week Referrals Follow up/Referrals: Carmen Diaz MD [Physician] - See instructions (Recurrent episodes of sudden onset nausea, vomiting, diarrhea. Has been associated with significant electrolyte abnormalities previously) Roxana Huang APRN [Primary Care Provider] - See instructions Symone Hoyt MD [Staff Physician] - See instructions (chronic headaches, hx seizures but taken off oxcarbazepine for hyponatremia, no sz since, needs follow up) Activity Restrictions/Add. Instructions Additional Instructions/Restrictions: You were evaluated in the ER. You have been referred to GI and urology for outpatient follow-up of some of your ongoing chronic problems. Continue taking home medications as previously prescribed. Return to the ER with new, worsening, or otherwise concerning symptoms. Clinical Impressions Clinical Impression: Nausea vomiting and diarrhea Instructions Patient Instructions: DI for Diarrhea and Traveler's Diarrhea -- Adult, DI for Nausea -- Adult Discharge ED Provider: Inez Lee General Adult HPI <Aleks Corrales MD - Last Filed: 12/26/23 15:09> General Chief complaint: Nausea/Vomiting/Diarrhea Stated complaint: Syncope Time Seen by Provider: 12/26/23 11:24 History of Present Illness HPI narrative: 63-year-old female with a history of recurrent urinary tract infections, COPD, hyperlipidemia, hypertension, seizure disorder, as well as recurrent acute hyponatremia presents to the ER for concerns of generalized weakness, nausea, vomiting, diarrhea. Patient states she was discharged from [facility] 2 days ago where she had been transferred to from this facility due to acute hyponatremia. Review of recent records demonstrates patient has been admitted to our hospital in the last month for acute hyponatremia, no medication changes were made, her sodium spontaneously improved, and she was discharged with normal sodium. She represented a few days later with similar symptoms which are identical to her presentation today. She did have being transferred to an outside facility for ICU care. Patient reports she was taken off her losartan and oxcarbazepine. She states she has not had any seizure activity. Patient reports she woke up this morning feeling diffusely weak which she states is how her hyponatremia episodes have started the last few times. She started having nausea, vomiting, and diarrhea which are also consistent with her previous presentations for hyponatremia. She states she has lightheadedness and difficulty standing. She denies room spinning. She denies any lateralizing weakness, numbness, or tingling. No chest pain or shortness of breath. Patient does report currently being on Macrobid for urinary tract infection. She states she is nearly done with this medication. Related Data Home Medications Medication Instructions Recorded Confirmed atorvastatin 40 mg tablet 40 mg PO DAILY 01/09/23 12/12/23 clopidogrel 75 mg tablet 75 mg PO DAILY 01/09/23 12/12/23 levothyroxine 75 mcg tablet 75 mcg PO DAILY 01/09/23 12/12/23 losartan 100 1 tab PO DAILY 01/09/23 12/12/23 mg-hydrochlorothiazide 12.5 mg tablet oxcarbazepine 300 mg tablet 300 mg PO BID 01/09/23 12/12/23 sitagliptin phosphate 50 mg tablet 50 mg PO DAILY 01/09/23 12/12/23 (Januvia) ascorbic acid (vitamin C) 500 mg 500 mg PO TID 02/01/23 12/12/23 tablet (Vitamin C With Freya Hips) methenamine hippurate 1 gram tablet 0.5 g PO DAILY 02/01/23 12/12/23 conjugated estrogens 0.625 mg/gram 0.625 mg vaginal DIRECTED 12/12/23 12/12/23 vaginal cream (Premarin) oxybutynin chloride 15 mg 15 mg PO DAILY 12/12/23 12/12/23 tablet,extended release 24 hr Previous Rx's Medication Instructions Recorded isosorbide mononitrate 30 mg 30 mg PO DAILY 90 days #90 tabs 04/10/23 tablet,extended release 24 hr promethazine 12.5 mg tablet 12.5 mg PO TID PRN allergy 12/26/23 symptoms #12 tabs Allergies Allergy/AdvReac Type Severity Reaction Status Date / Time aspirin Allergy Severe Difficulty Verified 12/12/23 11:29 Breathing celery Allergy Severe Unknown Verified 12/12/23 11:29 allergy reaction nut - unspecified Allergy Severe Difficulty Verified 12/12/23 11:29 Breathing Sulfa (Sulfonamide Allergy Severe Difficulty Verified 12/12/23 11:29 Antibiotics) Swallowing budesonide [From Symbicort] Allergy Other Verified 12/12/23 11:29 formoterol [From Symbicort] Allergy Other Verified 12/12/23 11:29 Iodinated Contrast Media Allergy Verified 12/26/23 12:21 metformin Allergy Chest Pain Verified 12/12/23 11:29 PFSH <Aleks Corrales MD - Last Filed: 12/26/23 15:09> PFSH Disclaimer: The information contained in this section may have been updated after the patient was seen, as this information can be updated by other users. Medical History (Updated 12/26/23 @ 15:09 by Aleks Corrales MD) Hypothyroid COPD (chronic obstructive pulmonary disease) Diabetes mellitus, type 2 Hyperlipidemia Hypertension Stroke Surgical History H/O: hysterectomy Family History Other Alcoholism Asthma Diabetes Hyperlipidemia Hypertension Stroke Thyroid disorder Social History (Updated 12/12/23 @ 11:37 by Bridgette Hawkins RN) Smoking Status: Never smoker alcohol intake: never current occupational status: retired Travel in the last 8 weeks: None <Aleks Corrales MD - Last Filed: 12/26/23 15:09> ROS Obtained: Yes All systems reviewed & no additional complaints except as documented Constitutional Constitutional: Denies chills, Denies fever(s), Denies headache(s) and Denies weakness Eyes Eyes: Denies change in vision ENT Ears, Nose, Mouth, and Throat: Reports dizziness, Denies headache(s), Denies nasal congestion and Denies sore throat Cardiovascular Cardiovascular: Denies chest pain, Denies dyspnea and Denies leg edema Respiratory Respiratory: Denies cough and Denies dyspnea Gastrointestinal Gastrointestingal: Reports diarrhea, nausea and vomiting; Denies constipation Genitourinary Female Genitourinary: Denies dysuria Musculoskeletal Musculoskeletal: Denies arthralgias, Denies myalgias, Denies numbness and Denies tingling Integumentary/Breasts Skin/Breast: Denies change in pigmentation Neurologic Neurologic: Reports dizziness, Denies headache(s), Denies numbness, Denies seizure-like activity, Denies tingling and Denies weakness Physical Exam <Aleks Corrales MD - Last Filed: 12/26/23 15:09> General General appearance: alert and in no apparent distress Head Head exam: atraumatic and normocephalic Eye Eye exam: Present PERRL and EOMI ENT ENT exam: Present mucous membranes moist Neck Neck exam: Present normal inspection and full ROM Chest Chest inspection: Present symmetric chest wall rise Respiratory Respiratory exam: Present normal lung sounds bilaterally; Absent respiratory distress, wheezes or stridor Cardiovascular Cardiovascular exam: Present regular rate and normal rhythm Abdominal Exam Abdominal exam: Present soft and tenderness (Mild epigastric discomfort, no rebound or guarding); Absent distention, guarding or rebound Extremities Exam Extremities exam: Present full ROM Neurological Exam Neurological exam: Present alert, oriented X3 and CN II-XII intact (Baseline right peripheral vision deficit. Patient states this is unchanged from prior stroke); Absent motor sensory deficit Psychiatric Psychiatric exam: Present normal affect and normal mood Skin Skin exam: Present warm and dry Medical Decision Making <Aleks Corrales MD - Last Filed: 12/26/23 15:09> Medical Records Medical records reviewed: Yes I reviewed the patient's medical records. [place] Inquiry Pt receiving controlled substance: No Vital Signs: 12/26/23 11:31 12/26/23 12:00 06/25/24 13:30 Temperature 98.4 F Temperature Source Oral Pulse Rate 85 91 H Pulse Rate [Left Radial] 122 H Respiratory Rate 20 17 17 Blood Pressure 124/60 128/79 Blood Pressure [Right Arm] 123/72 Blood Pressure Mean [Right Arm] 89 02 Sat by Pulse Oximetry 98 96 95 Oxygen Delivery Method Room Air Room Air Room Air 12/26/23 14:00 12/26/23 14:30 12/26/23 15:00 Temperature Temperature Source Pulse Rate 88 85 107 H Pulse Rate [Left Radial] Respiratory Rate 15 12 12 Blood Pressure 151/71 H 163/77 H 165/82 H Blood Pressure [Right Arm] Blood Pressure Mean [Right Arm] 02 Sat by Pulse Oximetry 97 96 96 Oxygen Delivery Method 12/26/23 15:33 12/26/23 16:47 Temperature 98.4 F Temperature Source Oral Pulse Rate 102 H 105 H Pulse Rate [Left Radial] Respiratory Rate 23 18 Blood Pressure 155/90 H 168/87 H Blood Pressure [Right Arm] Blood Pressure Mean [Right Arm] 02 Sat by Pulse Oximetry Oxygen Delivery Method Room Air Lab Data Lab Results 12/26/23 11:26: WBC 7.9, RBC 5.04, Hgb 14.4, Hct 44.8, MCV 88.9, MCH 28.6, MCHC 32.1, RDW 13.8, Plt Count 397, MPV 7.4, Neut % (Auto) 65.7, Lymph % (Auto) 24.9, [place] % (Auto) 6.6, Eos % (Auto) 1.7, Baso % (Auto) 1.0, Neut # (Auto) 5.2, Lymph # (Auto) 2.0, [place] # (Auto) 0.5, Eos # (Auto) 0.1, Baso # (Auto) 0.1, PT 10.6, INR 0.98, Sodium 138, Potassium 4.3, Chloride 107, Carbon Dioxide 20 L, Anion Gap 15.3 H, BUN 12, Creatinine 0.70, Estimated Creat Clear 61, Estimated GFR 85, Est GFR ( Amer) 103, Glucose 127 H, Lactate 2.8 H, Calcium 9.8, Total Bilirubin 0.3, AST 40 H, ALT 43, Alkaline Phosphatase 67, Total Protein 8.1, Albumin 4.6, Globulin 3.5 H, Albumin/Globulin Ratio 1.3 12/26/23 11:37: VBG pH 7.47 H, VBG pCO2 25.7 L, VBG pO2 148.3 H, VBG HCO3 18.1 L , VBG Total CO2 18.9 L, VBG O2 Saturation 99.4 H, VBG Base Excess -5.6 L, VBG Lactic Acid 3.4 H 12/26/23 13:09: Urine Color Yellow, Urine Appearance Cloudy, Urine pH 7.0, Ur Specific [place] 1.020, Urine Protein Negative, Urine Glucose (UA) Negative, Urine Ketones Negative, Urine Blood Negative, Urine Nitrate Negative, Urine Bilirubin Negative, Urine Urobilinogen 0.2, Ur Leukocyte Esterase Negative, Urine RBC None, Urine WBC Occasional, Ur Squamous Epith Cells 5-10, Urine Bacteria Trace, Urine Yeast Occasional 12/26/23 15:45: Lactate 1.0 12/26/23 11:26 12/26/23 11:26 Orders (Tests/Meds): ED MEDICATIONS Discontinued Medications Generic Name Dose Route Start Last Admin Trade Name Jonq PRN Reason Stop Dose Admin Droperidol 1.25 mg 12/26/23 12:23 12/26/23 12:48 Droperidol 5mg/2ml Vial IV 12/26/23 12:24 1.25 mg ONCE ONE Administration Lactated Ringer's 1,000 mls @ 999 mls/hr 12/26/23 11:24 12/26/23 11:37 Lactated Ringer's 1000 Ml Bag IV 12/26/23 12:24 999 mls/hr .Q1H1M ONE Administration Lactated Ringer's 1,000 mls @ 999 mls/hr 12/26/23 13:56 12/26/23 14:58 Lactated Ringer's 1000 Ml Bag IV 12/26/23 14:56 999 mls/hr .Q1H1M ONE Administration Ondansetron HCl 4 mg 12/26/23 11:24 12/26/23 11:37 Ondansetron 4mg/2ml Vial IV 12/26/23 11:25 4 mg ONCE ONE Administration ORDERS Category Date Time Status CT abdomen pelvis wo con Stat Cat Scan 12/26/23 11:50 Completed CBC w/Auto Diff [Complete Blood Count Auto Diff] Stat Lab 12/26/23 11:26 Completed CMP [Comprehensive Metabolic Panel] Stat Lab 12/26/23 11:26 Completed Lactic Acid Follow Up (RFLX 1) Stat Lab 12/26/23 15:45 Completed Lactic Acid Stat Lab 12/26/23 11:26 Completed PT INR [Prothrombin Time INR] Stat Lab 12/26/23 11:26 Completed Urinalysis and Microscopic Stat Lab 12/26/23 13:09 Completed VBG [Venous Blood Gas] Stat RT 12/26/23 11:37 Completed Medical Decision Narrative: In summary, this 63-year-old female with history of seizure disorder, recent recurrent hyponatremia which are comorbidities of current condition presents to the emergency department today with generalized weakness, dizziness, nausea, vomiting, diarrhea. On initial evaluation patient is tachycardic but otherwise hemodynamically stable, afebrile, no focal neurologic deficit, abdomen with mild epigastric tenderness but no rebound or guarding, nonacute abdomen. CT abdomen pelvis from 5 days ago when patient had identical symptoms did not demonstrate any acute abnormalities. I considered repeating CT imaging but will withhold this at this time until lab results are available. Differential diagnosis includes but is not limited to electrolyte abnormality, dehydration, medication side effect, viral syndrome, urinary tract infection. Addressing most morbid of these conditions drove my assessment and plan. [facility] was contacted. They did not yet have a discharge summary. Per the patient, so most recent progress note available was faxed to us. This was from 12/21. Patient's hyponatremia had improved to 129 from 124 at admission. She was being treated with Rocephin for possible UTI, they were concerned for possible pseudoseizures. ACTH stimulation test was done in the ICU and it did not suggest adrenal insufficiency. Patient received LR, Zofran initially for treatment. Labs personally reviewed demonstrate normal CBC and PT/INR, VBG with elevated lactate at 3.4, pH 7.47, sodium, dosing, chloride normal,. Patient and slightly elevated lactic acid, this did increase my suspicion for possible intra- abdominal pathology such as bowel obstruction. CT abdomen pelvis was performed without IV contrast and on my personal interpretation I did not appreciate any acute intra-abdominal pathology. No findings of obstruction. See radiology read for final interpretation. Patient was placed into ED observation at 1300 for continued monitoring and symptomatic management as well as to receive additional IV fluids and for repeat lactic acid. Hospital policy also dictates that since patient received droperidol should be monitored for at least 2 hours for any adverse events. She remained on the quality assurance monitor chassis and was frequently reassessed. On reassessment, patient states she has had improvement of her symptoms. Second liter of IV fluids is currently running and lactic acid is pending. Patient handed off to Dr. Lee at physician shift change for further management pending completion of IV fluids, lactic acid recheck, and oral intake challenge. <Inze Lee, DO - Last Filed: 12/26/23 17:03> Vital Signs: 12/26/23 11:31 12/26/23 12:00 12/26/23 13:30 Temperature 98.4 F Temperature Source Oral Pulse Rate 85 91 H Pulse Rate [Left Radial] 122 H Respiratory Rate 20 17 17 Blood Pressure 124/60 128/79 Blood Pressure [Right Arm] 123/72 Blood Pressure Mean [Right Arm] 89 02 Sat by Pulse Oximetry 98 96 95 Oxygen Delivery Method Room Air Room Air Room Air 12/26/23 14:00 12/26/23 14:30 12/26/23 15:00 Temperature Temperature Source Pulse Rate 88 85 107 H Pulse Rate [Left Radial] Respiratory Rate 15 12 12 Blood Pressure 151/71 H 163/77 H 165/82 H Blood Pressure [Right Arm] Blood Pressure Mean [Right Arm] 02 Sat by Pulse Oximetry 97 96 96 Oxygen Delivery Method 12/26/23 15:33 12/26/23 16:47 Temperature 98.4 F Temperature Source Oral Pulse Rate 102 H 105 H Pulse Rate [Left Radial] Respiratory Rate 23 18 Blood Pressure 155/90 H 168/87 H Blood Pressure [Right Arm] Blood Pressure Mean [Right Arm] 02 Sat by Pulse Oximetry Oxygen Delivery Method Room Air Lab Data Lab Results 12/26/23 11:26: WBC 7.9, RBC 5.04, Hgb 14.4, Hct 44.8, MCV 88.9, MCH 28.6, MCHC 32.1, RDW 13.8, Plt Count 397, MPV 7.4, Neut % (Auto) 65.7, Lymph % (Auto) 24.9, [place] % (Auto) 6.6, Eos % (Auto) 1.7, Baso % (Auto) 1.0, Neut # (Auto) 5.2, Lymph # (Auto) 2.0, [place] # (Auto) 0.5, Eos # (Auto) 0.1, Baso # (Auto) 0.1, PT 10.6, INR 0.98, Sodium 138, Potassium 4.3, Chloride 107, Carbon Dioxide 20 L, Anion Gap 15.3 H, BUN 12, Creatinine 0.70, Estimated Creat Clear 61, Estimated GFR 85, Est GFR ( Amer) 103, Glucose 127 H, Lactate 2.8 H, Calcium 9.8, Total Bilirubin 0.3, AST 40 H, ALT 43, Alkaline Phosphatase 67, Total Protein 8.1, Albumin 4.6, Globulin 3.5 H, Albumin/Globulin Ratio 1.3 12/26/23 11:37: VBG pH 7.47 H, VBG pCO2 25.7 L, VBG pO2 148.3 H, VBG HCO3 18.1 L , VBG Total CO2 18.9 L, VBG O2 Saturation 99.4 H, VBG Base Excess -5.6 L, VBG Lactic Acid 3.4 H 12/26/23 13:09: Urine Color Yellow, Urine Appearance Cloudy, Urine pH 7.0, Ur Specific [place] 1.020, Urine Protein Negative, Urine Glucose (UA) Negative, Urine Ketones Negative, Urine Blood Negative, Urine Nitrate Negative, Urine Bilirubin Negative, Urine Urobilinogen 0.2, Ur Leukocyte Esterase Negative, Urine RBC None, Urine WBC Occasional, Ur Squamous Epith Cells 5-10, Urine Bacteria Trace, Urine Yeast Occasional 12/26/23 15:45: Lactate 1.0 Orders (Tests/Meds): ED MEDICATIONS Discontinued Medications Generic Name Dose Route Start Last Admin Trade Name Freq PRN Reason Stop Dose Admin Droperidol 1.25 mg 12/26/23 12:23 12/26/23 12:48 Droperidol 5mg/2ml Vial IV 12/26/23 12:24 1.25 mg ONCE ONE Administration Lactated Ringer's 1,000 mls @ 999 mls/hr 12/26/23 11:24 12/26/23 11:37 Lactated Ringer's 1000 Ml Bag IV 12/26/23 12:24 999 mls/hr .Q1H1M ONE Administration Lactated Ringer's 1,000 mls @ 999 mls/hr 12/26/23 13:56 12/26/23 14:58 Lactated Ringer's 1000 Ml Bag IV 12/26/23 14:56 999 mls/hr .Q1H1M ONE Administration Ondansetron HCl 4 mg 12/26/23 11:24 12/26/23 11:37 Ondansetron 4mg/2ml Vial IV 12/26/23 11:25 4 mg ONCE ONE Administration ORDERS Category Date Time Status CT abdomen pelvis wo con Stat Cat Scan 12/26/23 11:50 Completed CBC w/Auto Diff [Complete Blood Count Auto Diff] Stat Lab 12/26/23 11:26 Completed CMP [Comprehensive Metabolic Panel] Stat Lab 12/26/23 11:26 Completed Lactic Acid Follow Up (RFLX 1) Stat Lab 12/26/23 15:45 Completed Lactic Acid Stat Lab 12/26/23 11:26 Completed PT INR [Prothrombin Time INR] Stat Lab 12/26/23 11:26 Completed Urinalysis and Microscopic Stat Lab 12/26/23 13:09 Completed VBG [Venous Blood Gas] Stat RT 12/26/23 11:37 Completed Medical Decision Narrative: In summary, this 63-year-old female with history of seizure disorder, recent recurrent hyponatremia which are comorbidities of current condition presents to the emergency department today with generalized weakness, dizziness, nausea, vomiting, diarrhea. On initial evaluation patient is tachycardic but otherwise hemodynamically stable, afebrile, no focal neurologic deficit, abdomen with mild epigastric tenderness but no rebound or guarding, nonacute abdomen. CT abdomen pelvis from 5 days ago when patient had identical symptoms did not demonstrate any acute abnormalities. I considered repeating CT imaging but will withhold this at this time until lab results are available. Differential diagnosis includes but is not limited to electrolyte abnormality, dehydration, medication side effect, viral syndrome, urinary tract infection. Addressing most morbid of these conditions drove my assessment and plan. [facility] was contacted. They did not yet have a discharge summary. Per the patient, so most recent progress note available was faxed to us. This was from 12/21. Patient's hyponatremia had improved to 129 from 124 at admission. She was being treated with Rocephin for possible UTI, they were concerned for possible pseudoseizures. ACTH stimulation test was done in the ICU and it did not suggest adrenal insufficiency. Patient received LR, Zofran initially for treatment. Labs personally reviewed demonstrate normal CBC and PT/INR, VBG with elevated lactate at 3.4, pH 7.47, sodium, dosing, chloride normal,. Patient and slightly elevated lactic acid, this did increase my suspicion for possible intra- abdominal pathology such as bowel obstruction. CT abdomen pelvis was performed without IV contrast and on my personal interpretation I did not appreciate any acute intra-abdominal pathology. No findings of obstruction. See radiology read for final interpretation. Patient was placed into ED observation at 1300 for continued monitoring and symptomatic management as well as to receive additional IV fluids and for repeat lactic acid. Hospital policy also dictates that since patient received droperidol should be monitored for at least 2 hours for any adverse events. She remained on the quality assurance monitor chassis and was frequently reassessed. On reassessment, patient states she has had improvement of her symptoms. Second liter of IV fluids is currently running and lactic acid is pending. Patient handed off to Dr. Lee at physician shift change for further management pending completion of IV fluids, lactic acid recheck, and oral intake challenge. Jesus, DO: On my assessment of the patient, she is resting comfortably with improved symptoms. Repeat lactic acid was reassuring. She is able to tolerate oral intake. Given this, I feel that she is appropriate for discharge home with prescription for Phenergan and instructions for supportive management. Strict return precautions were given and the patient was discharged after all questions were answered. Given reassuring workup and exam, it is felt that the patient is appropriate for discharge at 1645. Total ED observation time was 3 hours and 45 minutes. I had a [id number] visit with the patient when providing discharge instructions. The total time involved in discharging this patient was less than 30 minutes. Critical Care <Aleks Corrales MD - Last Filed: 12/26/23 15:09> Critical Care Time Critical Care Time: No
--- NOTE | 2023-12-26 11:30 | PC.NURSE ---
Called [facility] for Progress note.
[2023-12-26] MEDS: ONDANSETRON 4MG/2ML VIAL 4 MG IV (11:37)
[2023-12-26] MEDS: LACTATED RINGERS 1000ML 1,000 ML 999 ML IV ×2 (11:37→14:58)
[2023-12-26 11:39] LABS: Basophils # 0.1 K/mm3 (0-0.2); Eosinophils # 0.1 K/mm3 (0.0-0.4); Eosinophils % 1.7 % (0.1-12.0); Hematocrit 44.8 % (37.0-47.0); Hemoglobin 14.4 g/dL (12.2-16.2); Lymphocytes % 24.9 % (10-50); Mean Corpuscular HGB Conc 32.1 g/dL (31.8-35.4); Mean Corpuscular Hemoglobin 28.6 pg (27.0-31.2); Mean Corpuscular Volume 88.9 fl (81-99); Mean Platelet Volume 7.4 fl (7.4-10.4); Monocytes # 0.5 K/mm3 (0.1-1.0); Monocytes % 6.6 % (1.7-9.3); Neutrophils # 5.2 K/mm3 (1.8-7.8); Neutrophils % 65.7 % (37.0-80.0); Platelet Count 397 K/mm3 (142-424); Red Blood Count 5.04 M/mm3 (4.20-5.40); Red Cell Distribution Width 13.8 % (11.5-17.5); White Blood Count 7.9 K/mm3 (4.8-10.8)
[2023-12-26 11:41] LABS: Chloride 107 mmol/L (98-107)
[2023-12-26 11:42] LABS: Potassium 4.3 mmoL/L (3.5-5.1); Sodium 138 mmol/L (136-145)
[2023-12-26 11:44] LABS: Alanine Aminotransferase 43 U/L (12-78); Albumin Level 4.6 g/dl (3.5-5.0); Alkaline Phosphatase 67 U/L (38-126); Anion Gap 15.3 mEq/L (5-15); Aspartate Amino Transferase 40 U/L (14-36); Bilirubin,Total 0.3 mg/dl (0.2-1.3); Blood Urea Nitrogen 12 mg/dl (7-17); Carbon Dioxide 20 mmol/L (22.0-30.0); Creatinine Clearance Estimated 61 mL/min (50-200); Estimated Glomerular Filt Rate 85 ml/min (>60); GFR (African American) 103 ML/MIN (>60)
[2023-12-26 11:45] LABS: Albumin/Globulin Ratio 1.3 (1.1-1.8); Calcium 9.8 mg/dl (8.4-10.2); Globulin 3.5 g/dL (1.3-3.2); Glucose 127 mg/dl (74-100); Total Protein,Serum 8.1 g/dl (6.3-8.2)
[2023-12-26 11:48] LABS: VBG Base Excess -5.6 mmol/L (-2.4-2.3); VBG HCO3 18.1 mmol/L (23-30); VBG Oxygen Saturation 99.4 % (50-70); VBG PCO2 25.7 mmol/L (35-51); VBG PH 7.47 mmol/L (7.31-7.41); VBG PO2 148.3 mmol/L (28-40); VBG Total CO2 18.9 mmol/L (23-27)
--- NOTE | 2023-12-26 11:50 | CT_ITS ---
FINAL REPORT TECHNIQUE: After the administration of intravenous contrast, axial images were obtained through the abdomen and pelvis by computed tomography. The study was performed with techniques to keep radiation dose as low as reasonably achievable, (ALARA). Individual dose reduction techniques using automated exposure control or adjustment of mA and/or kV according to the patient's size were employed. CLINICAL HISTORY: abd pain, n/v/d COMPARISON: None FINDINGS: Abdomen: No acute density is seen within the lung bases. There is a nonobstructing lower pole left renal stone measuring up to 4 mm. No right renal stone disease identified. The remaining solid abdominal organs are unremarkable. The gallbladder is negative. No bowel obstruction is present. There is no free air. No fluid collection is seen. There is no adenopathy. Pelvis: The appendix is normal. No bowel wall thickening is present. Status post hysterectomy. The ovaries are unremarkable. There is no free fluid. No pelvic mass is seen. IMPRESSION: No evidence of bowel obstruction or obvious changes of colitis. Incidental nonobstructing left renal stone. Reviewed, Interpreted and Dictated by Adilson Gerber MD Transcribed by Darcie Malik Authenticated and [facility]
[2023-12-26 11:51] LABS: Lactate Venous 3.4 mmol/L (0.4-2.0)
[2023-12-26 12:00] LABS: INR 0.98 (0.9-1.1); Prothrombin Time 10.6 seconds (10.1-12.5)
[2023-12-26 12:21] LABS: Lactic Acid 2.8 mmol/L (0.7-2.1)
[2023-12-26] MEDS: droPERidol 5MG/2ML VIAL 1.25 MG IV (12:48)
[2023-12-26 13:14] LABS: Microscopic, Urine URINE MICROSCOPIC (MICROSCOPIC)
[2023-12-26 13:15] LABS: Appearance,Urine CLOUDY (Clear); Bilirubin,Urine Negative (Negative); Blood, Urine Negative (Negative); Color,Urine YELLOW (Yellow); Glucose,Urine (UA) Negative (Negative); Ketones,Urine Negative (Negative); Leukocyte Esterase,Urine Negative (Negative); Nitrate,Urine Negative (Negative); Protein,Urine Negative (Negative); Urobilinogen,Urine 0.2 EU/dl (0.2)
[2023-12-26 13:32] LABS: Bacteria,Urine Trace /lpf; WBC,Urine Occasional #/hpf (0-3); Yeast,Urine Occasional /lpf
--- NOTE | 2023-12-26 15:07 | PC.NURSE ---
Rounded on pt. No needs voiced at this time. Call light within reach.
[2023-12-26 15:50] LABS: Reflex Lactic Add Lactic Reflex
--- NOTE | 2023-12-26 15:50 | PC.NURSE ---
Repeat lactic sent to LAB
--- NOTE | 2023-12-26 16:28 | PC.NURSE ---
pt gone to bathroom
== END 2023-12-26 16:49 | disposition home or self-care (01) ==
PROVIDERS: Emergency Medicine; Emergency Provider Emergency Medicine; PCP Nurse Practitioner Family
DX: R11.2 Nausea with vomiting, unspecified (principal); R19.7 Diarrhea, unspecified; R74.02 Elevation of levels of lactic acid dehydrogenase [LDH]; R00.0 Tachycardia, unspecified; R53.1 Weakness; R42 Dizziness and giddiness; J44.9 Chronic obstructive pulmonary disease, unspecified; E03.9 Hypothyroidism, unspecified; E11.9 Type 2 diabetes mellitus without complications; E78.5 Hyperlipidemia, unspecified; I10 Essential (primary) hypertension; Z79.84 Long term (current) use of oral hypoglycemic drugs
CPT/HCPCS: 74176; 80053; 81001; 82803; 83605; 85025; 85610; 93005; 96361; 96374; 96375; 99285; J1790; J2405; J7120

== ENCOUNTER 2024-03-18 14:35 | Outpatient (CLI) | payer OTHER, SELFPAY ==
--- NOTE | 2024-03-18 14:38 | CA_ITS ---
APPROVED REPORT EXAM: Comprehensive 2D, Doppler, and color-flow Echocardiogram Case Packer: Michelle Salguero RT(R) Ht: 5 ft 0 in Wt: 155lbs BSA: 1.67 BP: 174/91 mmHg Indications: SOB, COPD, fatigue, HTN, DM, hyperlipidemia, family history of HD, CAD, abn EKG, hx CVA 15 years ago, pre op assessment for colonoscopy 2D Dimensions LVEF (Bustamante's) 64.00 % F: 54 - 74 LV Volume 52.80 mL F: 46 - 106 LV Volume Index 31.6 mL/m2 F: 29 - 61 LA Volume 15.40 mL LA Volume Index 9.22 mL/m2 (M/F) 16-34 EF AP4 61.80 % EF AP2 67.8 % EF BP 64.0 % GL Strain -15.1 % M-Mode Dimensions RVDd 2.13 cm (0.9-2.6) LA Diam 2.87 cm (1.9-4.0) LVDd 3.89 cm (3.5-5.7) LVDs 2.61 cm (3.5-5.7) IVSd 0.88 cm (0.6-1.1) PWd 1.00 cm (0.6-1.1) EF (Teich) 62.10% FS 32.90% EDV (Teich) 65.50 mL ESV (Teich) 24.80 mL LV Diastology E Decel Time 247 (160-240 msec) E/A Ratio 0.6 Mitral Valve MV E Max Johnny. 61.0 (40-130 cm/s) MV A Velocity 100.0 (40-130 cm/s) E/A Ratio 0.61 MV PHT 72.0 ms Left Ventricle The left ventricle is normal size. The left ventricular systolic function is normal. The left ventricular ejection fraction is within the normal range. There is increased LV wall thickness. There is normal LV segmental wall motion. Transmitral Doppler flow pattern suggests impaired LV relaxation. LVEF is 55%. Right Ventricle The right ventricle is normal size. The right ventricular systolic function is normal. Atria The left atrium size is normal. The right atrium size is normal. There is no Doppler evidence of interatrial shunt. Aortic Valve The aortic valve is mildly thickened. There is no aortic valvular stenosis. No aortic regurgitation is present. Mitral Valve The mitral valve is mildly thickened. No evidence of mitral valve stenosis. Mild mitral regurgitation. Tricuspid Valve The tricuspid valve leaflets are thin and pliable. Trace tricuspid regurgitation. There is insufficient TR jet to estimate RVSP. Pulmonic Valve The pulmonary valve is normal in structure. Trace pulmonic regurgitation. Great Vessels The aortic root is normal in size. The ascending aorta is normal in size. IVC is normal in size and collapses >50% with inspiration. Pericardium Small sized, circumferential pericardial effusion is present. The largest pocket is noted anteriorly and measures 0.8 cm in diastole. No evidence of chamber collapse. No echo indications of tamponade. Other Information Study Quality: Fair Conclusion Normal biventricular systolic function. Mild MR. Small sized, circumferential pericardial effusion is present. The largest pocket is noted anteriorly and measures 0.8 cm in diastole. No evidence of chamber collapse. No echo indications of tamponade. Serial limited TTE evaluations for persistence vs. resolution of the pericardial effusion is recommended. Electronically signed by : Radha Lama MD 03/22/2024 02:06:30
== END 2024-03-18 23:59 | disposition home or self-care (01) ==
LOC: RT 14:35
PROVIDERS: PCP Nurse Practitioner; Visit Provider Nurse Practitioner Family
DX: Z01.810 Encounter for preprocedural cardiovascular examination (principal); R06.02 Shortness of breath; R53.83 Other fatigue
CPT/HCPCS: 93306

== ENCOUNTER 2024-03-19 11:17 | Outpatient (CLI) | payer OTHER, SELFPAY ==
--- NOTE | 2024-03-19 11:18 | NM_ITS ---
APPROVED REPORT Exam: Nuclear Stress Test Indication: SOB, Palpitaitons, HTN, DM, High cholesterol, Family history, Dysrhythmia Patient Location: Outpatient Stress Tech: Carmen Mason NM Tech:Ludivina Peñaloza, ARRT, RT (R)(N) Ht: 5 ft 0 in Wt: 158 lbs Bra Size: D HR: 69 bpm BP: 149/90 mmHg BSA: 1.69 m2 TID: 1.20 History: SOB, Palpitaitons, HTN, DM, High cholesterol, Family history, Dysrhythmia Procedure: Patient received 0.4 mg of intravenous Lexiscan, resting heart rate 69 bpm, resting blood pressure 149/90 mmHg, with Lexiscan maximum heart rate achieved was 115 bpm which is % of the maximum predicted heart rate and blood pressure was 179/91 mmHg. With Lexiscan, patient denied any complaint of chest pain. Cardiac Stress and Resting SPECT Images: Cardiac Stress and Resting SPECT images were obtained using technetium 99m Myoview 31.1 mCi stress and 10.98 mCi at rest. Resting and stress imaging in supine and prone positions demonstrate no evidence of fixed or reversible perfusion defects. There is borderline increase in transit ischemic dilatation ratio (TID 1.20), suggestive of possible multivessel disease or balanced ischemia. Gated imaging demonstrates normal global and regional LV systolic function. LVEF is calculated at > 75%. Conclusion: No evidence of fixed or reversible perfusion defects. There is borderline increase in transit ischemic dilatation ratio (TID 1.20), suggestive of possible multivessel disease or balanced ischemia. Gated imaging demonstrates normal global and regional LV systolic function. LVEF is calculated at > 75%. Electronically signed by : Radha Lama MD 03/20/2024 10:09:01
[2024-03-19] MEDS: REGADENOSON 0.4MG/5ML SYRINGE 0.4 MG IV (13:04)
[2024-03-19] MEDS: SODIUM CHLORIDE 0.9% 10ML SYR (RAD ONLY) 10 ML IV ×2 (13:04)
[2024-03-19] MEDS: ISOTOPE MYOVIEW (PER STUDY) 1 DOSE IV (13:05)
--- NOTE | 2024-03-19 13:35 | CA_ITS ---
APPROVED REPORT Exam: Pharmacologic Technologist: Carmen Kenney, Ht: 5 ft 3 in Wt: 159 lbs BSA: 1.75 m2 HR: 71 bpm BP: 149/90 mmHg Rhythm: NSR Medical History Medications: Levothyroxine,,,,, Vitamin C,,,,, Atorvastatin,,,,, ProMETHAZINE,,,,, CloPIdogrel,,,,, Januvia,,,,, Losartan-HCTZ,,,,, Oxybutynin Chloride ER,,,,, Isosorbide Monoitrate ER,,,,, Stress Test Details Test: LEXISCAN Reason for pharmacologic stress test: physical limitation. HR Resting HR: 69 bpm Max Heart Rate (APMHR): 158 bpm Max HR Achieved: 115 bpm Target HR (85% APMHR): 134 bpm % of APMHR: 73 Recovery HR: 100 bpm BP Resting BP: 149.0/90.0 mmHg Max BP: 179.0/91.0 mmHg Recovery BP: 139.0/98.0 mmHg ECG Resting ECG: SR Stress ECG: No significant ST changes Arrhythmia: PVCs Clinical Exercise duration: 04:01 min Highest Stage Achieved: Exercise capacity: 1.0 METs Stress ECG Conclusion Symptoms: Dizziness, chest tightness, dyspnea, nausea. Arrhythmias/Ectopy: None. ST-T Changes: No significant ST changes. Conclusion: EKG portion unremarkable due to Lexiscan infusion. Myoview images reported separately. Test Summary REST . . . . . . . Resting REST 02:01 . . 69 . 149/ 90 . . Stage 1 . . . . . . . Myoview Injected Stage 1 01:00 . . 109 . . . . Stage 2 01:00 . . 109 . 176/ 87 . . Stage 3 01:00 . . 104 . 169/ 89 . . Stage 4 01:00 . . 94 . 179/ 91 . . Stage 4 01:01 . . 94 . 179/ 91 . Stop exercise at 04:01 RECOVERY 01:00 . . 101 . 152/ 87 . . RECOVERY 01:37 . . 104 . 139/ 98 . . Electronically signed by : Radha Lama MD 03/20/2024 10:07:46
== END 2024-03-19 23:59 | disposition home or self-care (01) ==
LOC: RAD 11:18
PROVIDERS: PCP Nurse Practitioner; Visit Provider Nurse Practitioner Family
DX: Z01.810 Encounter for preprocedural cardiovascular examination (principal); I25.10 Atherosclerotic heart disease of native coronary artery without angina pectoris; R06.02 Shortness of breath; R94.31 Abnormal electrocardiogram [ECG] [EKG]
CPT/HCPCS: 78452; 93017; 93018; A9502; J2785

== ENCOUNTER 2024-04-09 08:21 | Day surgery (SDC) | payer OTHER, SELFPAY ==
[2024-04-09] VITALS (15 sets, daily range): BP systolic 114–200; BP diastolic 66–140; PULSE 80–139; RESP 16–20; O2SAT 90–99; BMI 27.8
--- NOTE | 2024-04-09 07:19 | IR_ITS ---
APPROVED REPORT Patient Location: Outpatient PROCEDURES Left heart catheterization Left ventriculogram Selective coronary angiogram INDICATION Abnormal Myoview, Angina pectoris Informed consent was obtained prior to the procedure. COMPLICATIONS none Estimated Blood Loss: less than 10ml TECHNIQUE One percent lidocaine used to anesthetize the right anterior aspect of the wrist. The right radial artery was accessed via the Seldinger technique. A 6 Mohawk sheath was placed in the right radial artery. 2.5 mg of Verapamil, 800 mcg of nitroglycerin, 1mg Lidocaine and 5000 U Heparin were given through the arterial sheath. The papa catheter was also used to perform left heart catheterization, left ventriculogram and selective coronary angiogram. At the end of the procedure the sheath was removed good hemostasis was achieved using Traclet band, patient was transferred to the postop holding area in stable condition. ANGIOGRAPHIC RESULTS The left main artery Normal The left anterior descending artery Has a proximal eccentric 30% stenosis immediately adjacent to a small to medium sized first diagonal artery. There is an additional mid vessel 30 and then 40% concentric stenosis. The LAD is large and wraps the apex and supplies a significant portion of the inferior wall The circumflex artery Codominant and normal The right coronary artery Codominant normal The TOWNSEND ventriculogram reveals Normal 65% The left ventricular end-diastolic pressure Elevated at 25 mmHg IMPRESSION Mild to moderate coronary disease in the proximal and mid LAD as described above Elevated LVEDP which is the likely etiology for patient's symptoms Normal ejection fraction PLAN 1. I recommend medical management for the coronary artery disease at this time 2. I would also recommend starting Lasix 40 mg daily and spironolactone 100 mg daily to treat HFpEF 3. LDL less than 55 to be achieved with high intensity statin 4. Should patient be refractory to diuretics and continue with dyspnea consideration could be given to bring her back to the [facility] and perform FFR of the proximal and mid LAD lesions. At this time I am confident her symptoms are most likely related to elevated LVEDP Electronically signed by : Justo Chamorro MD 04/09/2024 11:45:00
[2024-04-09] MEDS: LABETALOL 20MG/4ML SYRINGE 20 MG IV (08:41)
[2024-04-09] MEDS: LORazepam 2MG/ML VIAL 2 MG IV (08:41)
[2024-04-09 08:47] LABS: Basophils % 0.5 % (0.1-2.0); Eosinophils % 0.3 % (0.1-12.0); Hematocrit 45.5 % (37.0-47.0); Lymphocytes # 1.4 K/mm3 (0.7-4.5); Lymphocytes % 15.2 % (10-50); Mean Corpuscular Volume 82.8 fl (81-99); Mean Platelet Volume 7.1 fl (7.4-10.4); Monocytes # 0.2 K/mm3 (0.1-1.0); Monocytes % 2.1 % (1.7-9.3); Neutrophils # 7.6 K/mm3 (1.8-7.8); Neutrophils % 81.9 % (37.0-80.0); Platelet Count 244 K/mm3 (142-424); Red Cell Distribution Width 13.9 % (11.5-17.5); White Blood Count 9.3 K/mm3 (4.8-10.8)
[2024-04-09 08:55] LABS: Chloride 104 mmol/L (98-107); Sodium 135 mmol/L (136-145)
[2024-04-09 08:56] LABS: Potassium 4.4 mmoL/L (3.5-5.1)
[2024-04-09 08:58] LABS: Blood Urea Nitrogen 14 mg/dl (7-17); Creatinine Clearance Estimated 66 mL/min (50-200); Estimated Glomerular Filt Rate 101 ml/min (>60); GFR (African American) 123 ML/MIN (>60)
[2024-04-09 08:59] LABS: Anion Gap 17.4 mEq/L (5-15); Calcium 9.9 mg/dl (8.4-10.2); Carbon Dioxide 18 mmol/L (22.0-30.0); Glucose 186 mg/dl (74-100)
[2024-04-09] MEDS: HEPARIN 1,000 UNITS/ML 10ML VIAL (CATH LAB) 10000 UNIT IV (10:59)
[2024-04-09] MEDS: diphenhydrAMINE 50MG/ML VIAL 50 MG IV (10:59)
[2024-04-09] MEDS: NITROGLYCERIN 800MCG/8ML SYR (CATH LAB) 800 MCG IA (10:59)
[2024-04-09] MEDS: VERAPAMIL 2.5MG/ML 2ML VIAL 2.5 MG IV (10:59)
[2024-04-09] MEDS: METHYLPREDNISOLONE SOD SUCC 125MG VIAL 125 MG IV (10:59)
[2024-04-09] MEDS: FAMOTIDINE 20MG/2ML VIAL 20 MG IV (10:59)
[2024-04-09] MEDS: LIDOCAINE 1% 10ML MDV 20 ML IJ (10:59)
[2024-04-09] MEDS: HEPARIN 1,000 UNITS/500ML NS (CATH LAB) 3000 UNIT IV (11:00)
[2024-04-09] MEDS: 0.9 % SODIUM CHLORIDE 500 ML 25 ML IV (11:00)
[2024-04-09] MEDS: MIDAZOLAM HCL 1MG/1ML 5ML VIAL 1 MG IV (11:18)
[2024-04-09] MEDS: FENTANYL 100MCG/2ML VIAL 50 MCG IV (11:19)
[2024-04-09] MEDS: IOPAMIDOL-370 (76%);100ML BOTTLE 50 ML IV (13:36)
== END 2024-04-09 14:55 | disposition home or self-care (01) ==
PROVIDERS: PCP Nurse Practitioner; Visit Provider Internal Medicine
DX: I25.118 Atherosclerotic heart disease of native coronary artery with other forms of angina pectoris (principal); R93.1 Abnormal findings on diagnostic imaging of heart and coronary circulation; Z79.899 Other long term (current) drug therapy; E11.9 Type 2 diabetes mellitus without complications; I10 Essential (primary) hypertension; J44.9 Chronic obstructive pulmonary disease, unspecified; I31.39 Other pericardial effusion (noninflammatory)
CPT/HCPCS: 80048; 85025; 93458; 99152; C1725; C1769; J1200; J1644; J2060; J2250; J2919; J3010; Q9967; S0028

== ENCOUNTER 2024-04-23 11:15 | Outpatient (CLI) | payer OTHER, SELFPAY ==
[2024-04-23 11:52] LABS: Anion Gap 11.8 mEq/L (5-15); Blood Urea Nitrogen 40 mg/dl (7-17); Calcium 9.7 mg/dl (8.4-10.2); Carbon Dioxide 28 mmol/L (22.0-30.0); Chloride 110 mmol/L (98-107); Estimated Glomerular Filt Rate 50 ml/min (>60); GFR (African American) 61 ML/MIN (>60); Glucose 91 mg/dl (74-100); Potassium 4.8 mmoL/L (3.5-5.1); Sodium 145 mmol/L (136-145)
== END 2024-04-23 23:59 | disposition home or self-care (01) ==
LOC: LAB 11:16
PROVIDERS: PCP Nurse Practitioner; Visit Provider Physician Assistant
DX: K21.9 Gastro-esophageal reflux disease without esophagitis (principal); R06.09 Other forms of dyspnea; R07.89 Other chest pain; Z91.041 Radiographic dye allergy status; I31.39 Other pericardial effusion (noninflammatory)
CPT/HCPCS: 36415; 80048

== ENCOUNTER 2025-01-17 10:21 | Outpatient (CLI) | payer OTHER, SELFPAY ==
--- NOTE | 2025-01-17 10:23 | MM_ITS ---
PROCEDURE INFORMATION: Exam: MG Bilateral Screening 3D Mammography Exam date and time: 01/17/2025 10:30 AM Age: 64 years old Clinical indication: Screening examination TECHNIQUE: Imaging protocol: Bilateral Screening tomosynthesis and 2D mammography including computer-aided detection (CAD) when performed. COMPARISON: No relevant prior studies available. FINDINGS: MAMMOGRAPHY: Breast composition: There are scattered areas of fibroglandular density. Mass: None. Architectural distortion: None. Calcifications: No suspicious calcifications. Asymmetric density: None. Skin thickening: None. Axillary adenopathy: None. IMPRESSION: No mammographic evidence of malignancy. Annual screening is recommended unless otherwise clinically indicated. ASSESSMENT: BI-RADS Category 1: Negative.
--- OUTSIDE RECORDS SUMMARY | 2025-01-17 10:23 | XMS_ITS | Clinical Summary ---
Author Organization [facility] [place] [place] [address] Care Team Providers Care Carton Stamper Name Role Phone Unavailable Primary Care Provider Unavailabl e Social History Tobacco Use Types Packs/Day Years Used Date Smoking Tobacco: Never Assessed Comments Unknown Sex and Gender Information Value Date Recorded Sex Assigned at Not on file Legal Sex Female 4:08 AM EDT Gender Identity Not on file Sexual Orientation Not on file Plan of Treatment Health Maintenance Due Date Last Done Comments Annual Wellness Exam 1964 Hepatitis C Screening 1979 DTaP/TDaP/Td (1 - Tdap) 1980 Cologuard 2006 Colon Cancer Screening 2006 Colonoscopy 2006 FIT 2006 Sigmoidoscopy 2006 Virtual Colonography 2006 Pneumococcal Vaccine 50+ (1 of 1 - PCV) 2011 Zoster (1 of 2) 2011 COVID-19 Vaccine (2023-2 5 season) 2024 Influenza Vaccine (#1) 2025 Hepatitis B Vaccine Aged Out No longe r eligible based on patient's age to complete this topic Meningococcal B Vaccine Aged Out No l onger eligible based on patient's age to complete this topic
--- OUTSIDE RECORDS SUMMARY | 2025-01-17 10:23 | XMS_ITS | Clinical Summary ---
Author Organization [facility] Address [address] [place] [address] Care Team Providers Care Hydraulic Oil Tool Operator Name Role Phone Sandoval Ingram MD Primary Care Provider [phone] Allergies Active Allergy Reactions Criticality Noted Date Comments Aspirin Anaphylaxis High 02/04/2016 Ct Contrast Other (See Comments) 12/23/2023 Chest pain Metformin Other (See Comments) Medium 12/21/2023 Chest pain Sulfa Antibiotics Angioedema 02/04/2016 Medications levothyroxine (SYNTHROID, LEVOTHROID) 75 MCG tablet Take 1 tablet by mouth Daily. Active clopidogrel (PLAVIX) 75 MG tablet Take 1 tablet by mouth Daily. 01/25/2013 Active atorvastatin (LIPITOR) 40 MG tablet Take 1 tablet by mouth Daily. 03/30/2017 Active Blood Glucose Monitoring Suppl (ACCU-CHEK JACI PLUS) w/Device kit 03/21/2017 Active ACCU-CHEK SOFTCLIX LANCETS lancets 03/21/2017 Active SITagliptin (JANUVIA) 50 MG tablet Take 1 tablet by mouth Daily. Active oxybutynin XL (DITROPAN XL) 15 MG 24 hr tablet Take 1 tablet by mouth Daily. Active POTASSIUM CITRATE PO Take 1,080 mg by mouth 2 (Two) Times a Day. Active vitamin C (ASCORBIC ACID) 500 MG tablet Take 1 tablet by mouth 3 times a day. Active Premarin 0.625 MG/GM vaginal cream Insert into the vagina 3 (Three) Times a Week. 12/03/2023 Active Fluticasone Furoate-Vilanter ol (Breo Ellipta) 200-25 MCG/ACT inhaler Inhale 1 puff Daily. Active isosorbide mononitrate (Imdur) 30 MG 24 hr tablet Take 1 tablet by mouth Daily. 30 tablet 12/24/2023 Active Active Problems Problem Noted Date Diagnosed Date Seizure 12/22/2023 Recurrent UTI 12/21/2023 Hyponatremia 12/21/2023 H/O: CVA (cerebrovascular accident) 12/21/2023 Headache 02/04/2016 Assessment & Plan (04/04/2017 2:00 PM EDT): Stable off VPA and taking OXC monotherapy Assessment & Plan (02/11/2016 3:28 PM EDT): BENTLEY controlled Continue Depakote Complex partial seizure 02/04/2016 Assessment & Plan (04/04/2017 2:00 PM EDT): Continue on OXC 600 mg BID Assessment & Plan (02/11/2016 3:28 PM EDT): Stable sz Continue on Oxtellar XR and Depakote Diabetes Hyperlipemia Hypertension Family History Medical History Relation Name Comments Cancer Father Diabetes Father Hypertension Father Cancer Mother Heart disease Mother Hypertension Mother Relation Name Status Comments Father Mother Social History Tobacco Use Types Packs/Day Years Used Date Smoking Tobacco: Never Smokeless Tobacco: Never Alcohol Use Standard Drinks/Week Comments No 0 (1 standard drink = 0.6 oz pur e alcohol) [facility] Utilities Answer Date Recorded In the past 12 months has [employer], [employer], oil, or water [employer] threatened to shut off services in your home? No 12/22/2023 AUDIT-C Answer Date Recorded Q1: How often do you have a drink containing alcohol? Never 12/21/2023 Q2: How many drinks containi ng alcohol do you have on a typical day when you are drinking? Patient does not drink Q3: How often do you have si x or more drinks on one occasion? Never 12/21/2023 Overall Financial Resource Strain (CARDIA) Answe r Date Recorded How hard is it for you to pa y for the very basics like food, housing, medical care, and heating? Not very hard 12/22/2023 [facility] Occup[facility] ional [facility] - Occupational Stress Questionnaire Answer Date Recorded Do you feel stress - tense, restless, nervous, or anxious, or unable to sleep at night because your mind is troubled all the time - these days? Not at all 12/22/2023 Exercise Vital Sign Answer Date Recorde d On average, how many days pe r week do you engage in moderate to strenuous exercise (like a brisk walk)? 0 days 12/22/2023 On average, how many minutes do you engage in exercise at this level? 0 min 12/22/2023 Hunger Vital Sign Answer Date Recorded Within the past 12 months, y ou worried that your food would run out before you got the money to buy more. Never true 12/22/19 24 Within the past 12 months, t he food you bought just didn't last and you didn't have money to get more. Never true 12/22/2023 PRAPARE - Transportation Answer Date Re corded In the past 12 months, has l ack of transportation kept you from medical appointments or from getting medications? No 12/02 In the past 12 months, has l ack of transportation kept you from meetings, work, or from getting things needed for daily living? No 12/22/2023 Abuse Screen Answer Date Recorded Feels Unsafe at Home or Work/School no 12/21/2023 Feels Threatened by Someone no 12/02 Does Anyone Try to Keep You From Having Contact with Others or Doing Things Outside Your Home? no 12/21/2023 Physical Signs of Abuse Present no 12/21/2023 Housing Stability Answer Date Recorded Current Living Arrangements home 12/02 Potentially Unsafe Housing Conditions unable to assess 12/22/2023 Family and Community Support Answer Andrey e Recorded If for any reason you need h elp with day-to-day activities such as bathing, preparing meals, shopping, managing finances, etc., do you get the help you need? I don't need any help 12/22/2023 How often do you feel lonely or isolated from those around you? Never 12/22/2023 Employment Answer Date Recorded Do you want help finding or keeping work or a job? I do not need or want help 12/22/2023 Disabilities Answer Date Recorded Difficulty Concentrating, Remembering or Making Decisions no 12/21/2023 Difficulty Managing Errands Independently no 12/21/2023 Education Answer Date Recorded Help with school or training? Not on file Preferred Language Niuean 12/22/2023 PHQ-2 Answer Date Recorded Retired PHQ-9: Brief Depression Severity Measure Score 0 12/22/2023 Comments No Sex and Gender Information Value Date Recorded Sex Assigned at Not on file Legal Sex Female 10:28 AM EDT Gender Identity Not on file Sexual Orientation Not on file Last Filed Vital Signs Vital Sign Reading Time Taken Comments Blood Pressure 161/80 12/24/2023 3:00 PM EDT Pulse 99 12/24/2023 3:00 PM EDT Temperature 36.8 C (98.2 F) 12/24/2023 12:00 PM EDT Respiratory Rate 16 12/24/2023 2:00 PM EDT Oxygen Saturation 97% 12/24/2023 3:00 PM EDT Inhaled Oxygen Concentration - - Weight 73.7 kg (162 lb 7.7 oz) 12/24/2023 4:30 A M EDT Height 152.4 cm (5') 12/21/2023 8:54 PM EDT Body Mass Index 31.73 12/21/2023 8:54 PM EDT Plan of Treatment Health Maintenance Due Date Last Done Comments Annual Gynecologic Pelvic an d Breast Exam 1961 LIPID PANEL 1961 TDAP/TD VACCINES (1 - Tdap) 1980 MAMMOGRAM 2001 COLON CANCER SCREENING 5 YEA R SIGMOIDOSCOPY [address] COLONOGRAPHY 2006 FECAL OCCULT BLOOD TEST 2006 FIT Testing (1 year) 2006 ZOSTER VACCINE (1 of 2) 2011 Pneumococcal Vaccine 50+ (2 of 2 - PCV) 07/03/2014 07/03/2013, 07/03/2007 ANNUAL PHYSICAL 04/04/2017 HEPATITIS C SCREENING 04/04/2017 COVID-19 Vaccine (3 - 2023-2 5 season) 2024 10/28/2020, 09/30/2020 INFLUENZA VACCINE 04/02/2025 03/20/2016, , 04/02/2013, Additional history exists COLOGUARD 10/25/2026 10/26/2023 COLORECTAL CANCER SCREENING 10/25/2026 HEMOGLOBIN A1C Discontinued 12/22/2023 Procedures Procedure Name Priority Date/Time Associated Diagnosis Comments HEMOGLOBIN A1C Add-On 12/22/2023 5:21 AM EDT from Last 3 Months or Most Recently Relevant to Health Maintenance Results * Hemoglobin A1c (12/22/2023 5:21 AM EDT) Hemoglobin A1C 5.50 4.80 - 5.60 % 12/22/2023 9:04 AM EDT [facility] Blood Structure of left upper limb / Unknown Venipuncture / Unknown 12/22/2023 5:21 AM EDT 12/22/2023 5:31 AM EDT Narrative [facility] - 12/22/2023 9:04 AM EDT Hemoglobin A1C Ranges: Increased Risk for Diabetes 5.7% to 6.4% Diabetes >= 6.5% Diabetic Goal < 7.0% Jesu Calzada MD LAB BLOOD ORDERABLES Final Resu lt [facility]
[address] [place] [address], from Last 3 Months or Most Recently Relevant to Health Maintenance Insurance [facility] Advance Directives Documents on File Type Date Recorded Patient Certified Nurse Practitioner Expl anation LIVING WILL - SCAN 12/22/2023 3:45 PM [place] NG WILL, BHLEX, 12/22/2023 * CPR (Attempt to Resuscitate) (Latest Code Status on File) Date Activated Date Inactivated Comments 12/21/2023 8:52 PM 12/24/2023 5:31 PM Question Answer Comments Code Status (Patient has no pulse and is not breathing): CPR (Attempt to Resuscitate) Medical Interventions (Patie nt has pulse or is breathing): Full Support Care Teams Hydraulic Oil Tool Operator Relationship Specialty Start Date End Date Sandoval Ingram MD [address] [place] [address] PCP - General Family Medicine 04/04/17
== END 2025-01-17 23:59 | disposition home or self-care (01) ==
LOC: RAD 10:21
PROVIDERS: PCP Nurse Practitioner; Visit Provider Nurse Practitioner
DX: Z12.31 Encounter for screening mammogram for malignant neoplasm of breast (principal); R92.323 Mammographic fibroglandular density, bilateral breasts
CPT/HCPCS: 77063; 77067